=== PATIENT | female | born 1945 | race Caucasian/White ===

== ENCOUNTER 2020-08-15 08:06 | Outpatient (REF) | payer MEDICARE, SELFPAY ==
--- NOTE | 2020-08-15 09:00 | MM_ITS ---
EXAMINATION: MM SCREENING DIGITAL BREAST TOMOSYNTHESIS, BILATERAL CLINICAL INFORMATION: Screening. Asymptomatic. The lifetime risk of breast cancer based on the Tyrer-Cuzick Model is 3%. COMPARISON: Mammography: 08/10/2019, 07/25/2018 TECHNIQUE: Digital breast tomosynthesis is performed in both the craniocaudal and mediolateral oblique views along with computer-aided detection (CAD). Synthesized 2D images are generated from the tomosynthesis. FINDINGS: There are scattered areas of fibroglandular density (ACR BI-RADS breast composition Category b). There are no significant masses, abnormal calcifications, or other abnormalities. Parenchymal pattern is similar to prior studies. There are dermal lesions again seen overlying the upper and lower right breast. IMPRESSION: No mammographic evidence of malignancy. ASSESSMENT: BI-RADS 2: Benign RECOMMENDATION: Routine annual mammography screening. This patient's information was entered into a reminder system with a target due date for their next mammogram.
== END 2020-08-15 08:07 | disposition home or self-care (01) ==
LOC: HO.MAMMO 08:06
PROVIDERS: PCP Internal Medicine; Visit Provider Internal Medicine
DX: Z12.31 Encounter for screening mammogram for malignant neoplasm of breast (principal)
CPT/HCPCS: 77063; 77067; 78014

== ENCOUNTER → 2020-10-28 08:57 | Outpatient (BNVA) | payer MEDICARE, SELFPAY | PROVIDERS: PCP Internal Medicine; Visit Provider Internal Medicine Cardiovascular Disease | DX: I20.8 Other forms of angina pectoris (principal); I25.10 Atherosclerotic heart disease of native coronary artery without angina pectoris; I10 Essential (primary) hypertension; I49.3 Ventricular premature depolarization | CPT/HCPCS: 93005; 99212 ==

== ENCOUNTER → 2021-04-17 09:07 | Outpatient (REF) | payer MEDICARE, SELFPAY ==
--- NOTE | 2021-04-17 09:10 | CA_ITS ---
Transthoracic Echocardiogram Patient (Last, First, Middle): Devora Aguirre, Gender: Female Date of : 1945 Age: 75 Procedure Date: 04/17/2021 Procedure Type: Transthoracic Echocardiogram Location: OP Height: 165.1 cm Weight: 99.79 kg BSA: 2.06 m2 Heart Rate: bpm BP: 132 / 70 mmHg Printing Services Coordinator: Mike MD: Colin Vo MD Carbon Sequestration Plant Operator: Colin Vo MD Symptoms: I25.10 - Atherosclerotic heart disease of [place] coronary artery without angina pectoris Study Quality: Good ECG Rhythm: Sinus Conclusions: - 1. Normal LV systolic function with pseudonormal filling pattern 2. Mildly dilated left atrium 3. Normal cardiac valvular Doppler with mild mitral calcification 4. Normal RV systolic pressure 5. No pericardial effusion Findings Left Ventricle Normal left ventricular size, thickness, and systolic function. The visually estimated ejection fraction is between 65-70%. Spectral Doppler is indicative of a pseudonormal filling pattern. E/E prime ratio is between 8 and 15 consistent with indeterminate filling pressures. Right Ventricle Normal right ventricular cavity size and systolic function. Atria The left atrium is mildly dilated. There is lipomatous hypertrophy of the interatrial septum. There is no evidence of interatrial shunt. The right atrium is normal in size. Aortic Valve There is mild calcification of the aortic valve. There is no aortic valve stenosis. There is no aortic valve regurgitation. Mitral Valve Normal mitral valve structure and function. There is mild mitral annular calcification. There is trace mitral valve regurgitation. There is no mitral valve stenosis. Pulmonic Valve The pulmonic valve was not well visualized. Tricuspid Valve Likely normal tricuspid valve structure and function. There is mild tricuspid valve regurgitation. The right ventricular systolic pressure is normal. The right ventricular systolic pressure is 32 mmHg. Normal right atrial pressure. There is no evidence of pulmonary hypertension. Great Vessels All visible segments of the aorta are normal in size. The pulmonary artery was not well visualized. Venous The inferior vena cava is normal in size and collapses greater than 50% with inspiration. Pericardium/Pleural There is no evidence of pericardial effusion. Measurements 2D Linear Measurements RVIDd: 3.15 RVIDd Index: 1.53 IVSd: 1.14 0.6-0.9/0.6-1.0 cm LVIDd: 5.58 3.9-5.3/4.2-5.9 cm LVIDd Index: 2.71 2.4-3.2/2.2-3.1 cm/m2 LVIDs: 3.25 2.0-3.6 cm LVPWd: 1.14 0.7-1.1 cm Ao Root: 2.80 2.1-3.5 cm LA Diam: 4.60 2.7-3.8/3.0-4.0 cm LAIDs Index: 2.23 1.5-2.3 cm/m2 LV Mass: 324.32 67-162/88-224 g LV Mass Index: 157.44 43-95/49-115 g/m2 LVOT Diam: 2.10 3.0+(-)1.3 cm 2D Systolic Function EF 4C: 67.70 >55% EF 2C: 76.00 >55% EF BiP: 69.70 >55% Mitral Valve MV Pk E: 1.02 MV PK A: 0.79 MV Decel Time: 237.00 E/A: 1.30 E'Lateral: 6.53 E'Medial: 5.33 E/E' Med: 19.10 E/E' Lat: 15.60 PHT: 70.00 MVA PHT: 3.14 Decel [place]: 4.29 Aortic Valve AoV Pk Víctor: 1.91 AoV Mn Víctor: 1.46 AoV VTI: 0.48 AoV Pk Grad: 15.00 Aov Mn Grad: 9.00 TIANA Cont.VTI: 2.81 LVOT LVOT Pk Víctor: 1.62 LVOT Mn Víctor: 0.98 LVOT VTI: 0.39 LVOT Pk Grad: 10.00 LVOT Mn Grad: 5.00 LVOT Diam: 2.10 LVOT Area: 3.46 Diastolic Function MV Pk E: 1.02 MV Pk A: 0.79 E/A: 1.30 E'Medial: 5.33 E/E' Med: 19.10 E' Laterial: 6.53 E/E' Lat: 15.60 Tricuspid Valve TR Pk Víctor: 2.67 TR Pk Grad: 29.00 RA Press: 3.00 RVSP: 32.00 Great Vessels Aorta Ao Root-2D: 2.80 2.0-3.7 cm Ao Asc: 3.30 2.1-3.4 cm Ao Arch: 3.00 Updated in Other Vendor System with Status of Final Colin Vo MD electronically signed on 04/18/2021 12:36:39 PM with status of Final
== END ==
LOC: HO.CARD 09:07
PROVIDERS: PCP Internal Medicine Medical Oncology; Visit Provider Internal Medicine Cardiovascular Disease
DX: I25.10 Atherosclerotic heart disease of native coronary artery without angina pectoris (principal); I10 Essential (primary) hypertension
CPT/HCPCS: 93306

== ENCOUNTER → 2021-05-28 14:26 | Outpatient (BNVA) | payer MEDICARE, SELFPAY | PROVIDERS: PCP Internal Medicine Medical Oncology; Visit Provider Internal Medicine Cardiovascular Disease | DX: I25.10 Atherosclerotic heart disease of native coronary artery without angina pectoris (principal); I10 Essential (primary) hypertension; I49.3 Ventricular premature depolarization; R06.02 Shortness of breath | CPT/HCPCS: 99212 ==

== ENCOUNTER 2021-05-29 10:35 | Emergency (ER) | payer MEDICARE, SELFPAY ==
--- NOTE | ~2021-05-29 | XR_ITS ---
EXAMINATION: XR TIBIA AND FIBULA, LEFT CLINICAL INFORMATION: Redness and swelling. Question abscess. COMPARISON: None. TECHNIQUE: AP and lateral views of the left tibia and fibula were obtained. FINDINGS: Partially visualized total left knee arthroplasty. No evidence of hardware complication. No lytic or blastic osseous lesion. Mild circumferential soft tissue swelling/edema. No radiopaque foreign body. XR/XR tibia fibula LT 2V IMPRESSION: Mild lower leg swelling/edema without acute osseous abnormality.
--- NOTE | ~2021-05-29 | US_ITS ---
EXAMINATION: US EXTREMITY NONVASCULAR, LEFT CLINICAL INFORMATION: Question left puckett abscess. COMPARISON: None TECHNIQUE: [place]-scale and Doppler images were obtained in the region of the patient's palpable finding. FINDINGS: There are simple-appearing cystic and avascular structures within the subcutaneous tissues in the region of the patient's palpable findings measuring 1.0 x 0.4 x 1.3 cm and 1.0 x 0.6 x 0.8 cm. No increased Doppler detectable vascular flow in this region. This appears at the region of bruising/lump. US/US extremity nonvascular IMPRESSION: Simple cystic structures within the subcutaneous tissues of the lower leg in the region of the bruising and palpable findings. Findings could represent evolving hematomas in the appropriate setting. No increased vascularity to indicate an infectious or inflammatory process.
[2021-05-29 10:38] VITALS: BP 164/53; PULSE 73; RESP 16; TEMP 36.8; O2SAT 98; BMI 36.6
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
[2021-05-29 11:57] LABS: MANUAL DIFF FLAG NO
[2021-05-29 12:00] VITALS: RESP 16
[2021-05-29 12:03] LABS: Basophils Percent Auto 0.5 % (0-2); Eosinophils Absolute Auto 0.2 X10*3/uL (0.0-0.4); Eosinophils Percent Auto 2.7 % (0-4); Hematocrit 38.2 % (37-47); Hemoglobin 12.2 g/dl (12.0-16.0); Imm Gran Abs Auto 0.02 X10*3/uL (0.00-0.03); Imm Gran Pct Auto 0.4 % (0.0-0.4); Lymphocytes Absolute Auto 1.1 X10*3/uL (1.2-4.9); Lymphocytes Percent Auto 19.1 % (20-40); Mean Corpuscular HGB Conc 31.9 g/dl (31.0-35.0); Mean Corpuscular Hemoglobin 29.7 pg (27.0-33.0); Mean Corpuscular Volume 92.9 fL (80-98); Mean Platelet Volume 10.1 fL (9.4-12.3); Monocytes Absolute Auto 0.6 X10*3/uL (0.1-1.2); Monocytes Percent Auto 10.2 % (2-11); Neutrophils Absolute Auto 3.8 X10*3/uL (2.0-8.3); Neutrophils Percent Auto 67.1 % (45-73); Platelet Count 162 X10*3/uL (160-400); Red Blood Count 4.11 X10*6/uL (4.20-5.50); Red Cell Distribution Width 13.5 % (11.0-16.0); White Blood Count 5.6 X10*3/uL (4.8-10.8)
[2021-05-29] MEDS: Lidocaine HCl 1 % MPF 5 ML VIAL SUBCUT (12:03)
[2021-05-29] MEDS: 0.9 % Sodium Chloride 1,000 ML 999 ML IVCONT (12:03)
[2021-05-29 12:20] LABS: Lactic Acid 0.9 mmol/L (0.5-2.0)
[2021-05-29 12:24] LABS: Anion Gap 11 (12-20); Blood Urea Nitrogen 26 mg/dL (9-16); C Reactive Protein 1.08 mg/dL (< or = 0.50); Calcium 9.4 mg/dL (8.4-10.2); Carbon Dioxide 27 mmol/L (22-29); Chloride 110 mmol/L (96-108); Creatinine Clr Calc Pharmacy 62.7; Estimated Glomerular Filt Rate 60; Glucose Random 92 mg/dL (60-115); Magnesium 1.7 mg/dL (1.6-2.6); Potassium 4.4 mmol/L (3.3-5.1); Sodium 144 mmol/L (135-145)
[2021-05-29 13:07] LABS: Erythrocyte Sedimentation Rate 12 MM/HR (0-20)
== END 2021-05-29 13:20 | disposition home or self-care (01) ==
PROVIDERS: Physician Assistant Medical; Emergency Provider Emergency Medicine; PCP Internal Medicine
DX: L03.116 Cellulitis of left lower limb (principal); S80.12XA Contusion of left lower leg, initial encounter; I10 Essential (primary) hypertension; Z79.899 Other long term (current) drug therapy; W50.1XXA Accidental kick by another person, initial encounter; Y93.9 Activity, unspecified; Y92.9 Unspecified place or not applicable; Y99.9 Unspecified external cause status
CPT/HCPCS: 36415; 73590; 76882; 80048; 83605; 83735; 85025; 85652; 86140; 87040; 96360; 96372; 99284

== ENCOUNTER 2021-06-06 08:58 | Outpatient (RCR) | payer MEDICARE, SELFPAY | END 2021-06-06 11:00 | disposition home or self-care (01) | LOC: HO.WCC 08:58 | PROVIDERS: PCP Internal Medicine; Visit Provider Surgery | DX: S81.811D Laceration without foreign body, right lower leg, subsequent encounter (principal) | CPT/HCPCS: 99212 ==

== ENCOUNTER 2021-09-13 04:40 | Inpatient (IN) | payer MEDICARE, SELFPAY ==
[2021-09-13] VITALS (12 sets, daily range): BP systolic 105–186; BP diastolic 46–114; PULSE 64–84; RESP 11–18; TEMP 36.1–37.2; O2SAT 95–100; BMI 35.6
--- NOTE | 2021-09-13 | ECG_ITS ---
Test Reason : TACHY Blood Pressure : / mmHG Vent. Rate : 085 BPM Atrial Rate : 085 BPM P-R Int : 166 ms QRS Dur : 082 ms QT Int : 364 ms P-R-T Axes : 063 -14 057 degrees QTc Int : 433 ms Sinus rhythm with sinus arrhythmia with occasional Premature ventricular complexes ST & T wave abnormality, consider anterolateral ischemia RSR' or QR pattern in V1 suggests right ventricular conduction delay Abnormal ECG When compared with ECG of 21-MAY-2014 14:50, Significant changes have occurred Referred By: Rose Eddy Electronically Signed By:DAKOTA GARCIA MD
--- NOTE | ~2021-09-13 | XR_ITS ---
EXAMINATION: XR CHEST CLINICAL INFORMATION: Chest pain COMPARISON: Previous chest x-ray May 2014 TECHNIQUE: Frontal view of the chest was obtained. FINDINGS: No significant abnormality is noted involving the heart, lungs, mediastinum, bony thorax or soft tissues. XR/XR chest 1V IMPRESSION: Unremarkable examination.
--- NOTE | 2021-09-13 05:01 | ED_ITS ---
HPI - General Adult General Chief complaint: General Medical Stated complaint: swollen tounge Time Seen by Provider: 09/13/21 04:55 Source: patient Mode of arrival: ambulatory History of Present Illness HPI narrative: 76-year-old female who presents with angioedema that she noted at 3:00 a.m. and took 50 mg Benadryl and states that she has had some improvement. She denies any shortness of breath or scratchy throat but states that the right side of her tongue has become swollen. She otherwise is noted to be speaking with a clear voice. Related Data Home Medications Medication Instructions Recorded Confirmed lisinopril 5 mg tablet 10 mg PO DAILY tab 10/28/20 05/29/21 mupirocin 2 % topical ointment TOPICAL 10/28/20 05/29/21 nitroglycerin 0.4 mg sublingual mg SUBLINGUAL 10/28/20 05/29/21 tablet Previous Rx's Medication Instructions Recorded atorvastatin 80 mg tablet 80 mg PO DAILY #90 tab 11/29/20 metoprolol succinate 25 mg 12.5 mg PO DAILY 90 Days #45 tab 05/08/21 tablet,extended release 24 hr cephalexin 500 mg capsule 500 mg PO TID 7 Days #21 cap 05/22/21 doxycycline hyclate 100 mg tablet 100 mg PO BID #14 tab 05/22/21 cephalexin 500 mg capsule 500 mg PO Q6H 7 Days #28 cap 05/29/21 doxycycline hyclate 100 mg tablet 100 mg PO BID 7 Days #14 tab 05/29/21 Allergies Allergy/AdvReac Type Severity Reaction Status Date / Time Sulfa (Sulfonamide Allergy Unknown rash Verified 05/22/21 13:58 Antibiotics) lisinopril Allergy Angioedema Verified 09/13/21 07:15 Review of Systems Review of Systems: Pertinent positives and negatives as stated in HPI 10 point review of systems is otherwise negative. [facility] Past Medical History Source: nursing notes reviewed Medical History CAD (coronary artery disease) HTN (hypertension) Hyperlipidemia PVCs (premature ventricular contractions) Surgical History Hx of cardiac cath Hx of colonoscopy Hx of endoscopy Hx of knee surgery Stented coronary artery Family History Family History Father CVD (cardiovascular disease) Mother CVD (cardiovascular disease) Sister Cancer Social History Social History Alcohol intake: never Patient Tobacco Use Status: Never used Tobacco Use of substances other than those prescribed or required for medical reasons: No Advance Directives: No Physical Exam Vital Signs: Vital Signs: Last Vital Signs Temp 98.0 F 09/13/21 05:50 Pulse 64 09/13/21 06:00 Resp 14 09/13/21 06:00 BP 105/57 L 09/13/21 06:00 Pulse Ox 100 09/13/21 06:00 Body Mass Index 35.6 VITAL SIGNS: Reviewed. GENERAL: Well developed, well nourished, in no acute distress. HEAD: Normocephalic/atraumatic EYES: PERRLA, EOMI OROPHARYNX: no oral lesions noted, posterior pharynx clear and non-erythematous without noted tonsillar enlargement/erythema/exudates, there is noted right- sided tongue swelling without involvement the lower the mouth, no lip or facial swelling is noted NECK: Supple, no adenopathy LUNGS: No stridor, Normal breath sounds. No adventitious sounds or accessory muscle use. SpO2<100> CARDIOVASCULAR: Regular rate and rhythm without noted murmurs, no JVD or lower extremity edema. ABDOMEN: Soft, non-tender, non-distended with bowel sounds. SKIN: Inspection of the skin reveals no rashes NEUROLOGIC: Alert and oriented x 4. Course Course Course Narrative: This is a 76-year-old female with history and clinical presentation consistent with ACEI induced angioedema. Airway is patent, patient already took Benadryl and will be provided with Pepcid, Solu-Medrol, epi. Shortly after receiving epi patient experienced chest tightness/pain without radiation and concomitant shortness of breath. Patient was provided with supplemental oxygen and EKG was obtained and found to be consistent with demand ischemia likely secondary to increased work from epinephrine. Patient continued to have resolution of her chest pain and on re-evaluation has had complete resolution with no further symptoms. Initial troponin was noted to be 85.9. On re-evaluation angioedema patient is noted to have resolving tongue swelling. Signed out to Dr Eddy: Medical Decision Making Lab Data Result diagrams: 09/13/21 04:55 09/13/21 04:55 Labs: Lab Results 09/13/21 09/13/21 09/13/21 Range/Units 04:55 04:55 06:52 WBC 6.7 (4.8-10.8) X10*3/uL RBC 4.55 (4.20-5.50) X10*6/uL Hgb 13.6 (12.0-16.0) g/dl Hct 42.2 (37-47) % MCV 92.7 (80-98) fL MCH 29.9 (27.0-33.0) pg MCHC 32.2 (31.0-35.0) g/dl RDW 13.4 (11.0-16.0) % Plt Count 187 (160-400) X10*3/uL MPV 9.9 (9.4-12.3) fL Immature Gran % (Auto) 0.3 (0.0-0.4) % Neut % (Auto) 58.9 (45-73) % Lymph % (Auto) 27.0 (20-40) % [place] % (Auto) 9.2 (2-11) % Eos % (Auto) 4.2 H (0-4) % Baso % (Auto) 0.4 (0-2) % Lymph # (Auto) 1.8 (1.2-4.9) X10*3/uL [place] # (Auto) 0.6 (0.1-1.2) X10*3/uL Eos # (Auto) 0.3 (0.0-0.4) X10*3/uL Baso # (Auto) 0.0 (0.0-0.2) X10*3/uL Abs Immat Gran (auto) 0.02 (0.00-0.03) X10*3/uL Absolute Neuts (auto) 4.0 (2.0-8.3) X10*3/uL Absolute Nucleated RBC 0.000 (0.0-0.012) X10*3/uL Nucleated RBC % (auto) 0.0 (0.0-0.2) /100WBC Sodium 144 (135-145) mmol/L Potassium 4.0 (3.3-5.1) mmol/L Chloride 108 (96-108) mmol/L Carbon Dioxide 21 L (22-29) mmol/L Anion Gap 19 (12-20) BUN 22 H (9-16) mg/dL Creatinine 0.86 (0.5-1.4) mg/dL Estim Creat Clear Calc 67.5 Estimated GFR > 60 Random Glucose 101 (60-115) mg/dL Calcium 9.6 (8.4-10.2) mg/dL Total Bilirubin 0.6 (0.0-1.0) mg/dL AST 31 (5-31) U/L ALT 17 (0-31) U/L Alkaline Phosphatase 84 (39-117) U/L Troponin I High Sens 85.9 H* (<3.5-17.0) ng/L Total Protein 7.4 (6.5-8.0) g/dL Albumin 4.4 (3.5-5.0) g/dL Discharge Plan Discharge Clinical Impression: Angioedema, Demand ischemia Instructions: Angioedema (ED) Additional Instructions: return to ED for any worsening symptoms or concerns STOP LISINOPRIL Prescriptions: No Action atorvastatin 80 mg tablet 80 mg PO DAILY Qty: 90 RF: 3 metoprolol succinate 25 mg tablet extended release 24 hr 12.5 mg PO DAILY 90 Days Qty: 45 RF: 1 doxycycline hyclate 100 mg tablet 100 mg PO BID 7 Days Qty: 14 RF: 0 cephalexin 500 mg capsule 500 mg PO Q6H 7 Days Qty: 28 RF: 0 doxycycline hyclate 100 mg tablet 100 mg PO BID Qty: 14 RF: 0 cephalexin 500 mg capsule 500 mg PO TID 7 Days Qty: 21 RF: 0 mupirocin 2 % ointment topical RF: 0 nitroglycerin 0.4 mg tablet, sublingual sublingual RF: 0 lisinopril 5 mg tablet 10 mg PO DAILY RF: 0 Referrals: Ruddy Gray MD [Primary Care Provider] - 2 days
[2021-09-13 05:10] LABS: MANUAL DIFF FLAG NO
[2021-09-13 05:12] LABS: Basophils Percent Auto 0.4 % (0-2); Eosinophils Absolute Auto 0.3 X10*3/uL (0.0-0.4); Eosinophils Percent Auto 4.2 % (0-4); Hematocrit 42.2 % (37-47); Hemoglobin 13.6 g/dl (12.0-16.0); Imm Gran Abs Auto 0.02 X10*3/uL (0.00-0.03); Imm Gran Pct Auto 0.3 % (0.0-0.4); Lymphocytes Absolute Auto 1.8 X10*3/uL (1.2-4.9); Mean Corpuscular HGB Conc 32.2 g/dl (31.0-35.0); Mean Corpuscular Hemoglobin 29.9 pg (27.0-33.0); Mean Corpuscular Volume 92.7 fL (80-98); Mean Platelet Volume 9.9 fL (9.4-12.3); Monocytes Absolute Auto 0.6 X10*3/uL (0.1-1.2); Monocytes Percent Auto 9.2 % (2-11); Neutrophils Percent Auto 58.9 % (45-73); Platelet Count 187 X10*3/uL (160-400); Red Blood Count 4.55 X10*6/uL (4.20-5.50); Red Cell Distribution Width 13.4 % (11.0-16.0); White Blood Count 6.7 X10*3/uL (4.8-10.8)
[2021-09-13] MEDS: EPINEPHrine 1 MG/ML VIAL 0.3 MG IM (05:19)
[2021-09-13] MEDS: Famotidine/PF 20 MG/2 ML VIAL IVPUSH (05:21)
[2021-09-13] MEDS: methylPREDNISolone Sod Succ 125 MG/2 ML VIAL IVPUSH (05:21)
[2021-09-13 05:25] LABS: Alanine Aminotransferase 17 U/L (0-31); Albumin Level 4.4 g/dL (3.5-5.0); Alkaline Phosphatase 84 U/L (39-117); Anion Gap 19 (12-20); Aspartate Amino Transferase 31 U/L (5-31); Bilirubin Total 0.6 mg/dL (0.0-1.0); Blood Urea Nitrogen 22 mg/dL (9-16); Calcium 9.6 mg/dL (8.4-10.2); Carbon Dioxide 21 mmol/L (22-29); Chloride 108 mmol/L (96-108); Creatinine Clr Calc Pharmacy 67.5; Estimated Glomerular Filt Rate > 60; Glucose Random 101 mg/dL (60-115); Sodium 144 mmol/L (135-145); Total Protein 7.4 g/dL (6.5-8.0)
--- NOTE | 2021-09-13 05:26 | PC.NURSE ---
Patient developed chest pain post epinephrine administration. Patient placed on Oxygen at 2 liters and EKG performed. Heart rate up into 160's MD aware.
--- NOTE | 2021-09-13 06:36 | PC.NURSE ---
Patient's Angioedema is resolving. New allergy to lisinopril. Patient still complaining of chest pressure post epinephrine administration over and hour ago. MD made aware as asked if Troponin should be drawn but no orders given. Patient does have a history of myocardial infarction.
--- NOTE | 2021-09-13 07:23 | PC.NURSE ---
report taken from irish celis, pt resting comfortably in bed at this time. pt denies cp or any discomfort. nsr 60s on classroom monitor. aware of plan of care and denied having any questions.
[2021-09-13 07:33] LABS: Troponin-I High Sensitivity 85.9 ng/L (<3.5-17.0)
[2021-09-13 09:51] LABS: Troponin-I High Sensitivity 579.9 ng/L (<3.5-17.0)
[2021-09-13] MEDS: Aspirin 81 MG TAB.CHEW 162 MG PO (10:00)
[2021-09-13 10:41] LABS: COVID-19 Test Negative (Negative)
[2021-09-13 10:53] LABS: Prothrombin Time 11.8 SEC (9.9-13.0)
[2021-09-13 10:55] LABS: Partial Thromboplastin Time 28.2 SEC (24.1-38.0)
[2021-09-13] MEDS: Heparin Sodium,Porcine 5,000 UNIT/ML VIAL 4000 UNIT IVPUSH (11:00)
[2021-09-13] MEDS: Heparin Sodium,Porcine/1/2NS 25,000 UNIT/250 ML IV.SOLN 10 UNIT IVCONT (11:00)
--- NOTE | 2021-09-13 13:31 | P.CONCA_ITS ---
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 At that time she has 70% mid LAD stenosis which was assessed with FFR which was 0.77. His RCA was stented and LAD was medically managed. Since then she did well and has not had significant symptoms. She has been on lisinopril for long time and last night she woke up and noticed tongue swelling. She said she took some Benadryl but the swelling did not improve and she decided come to the emergency department. In the ER she was given steroids followed by epinephrine. After receiving epinephrine she developed high blood pressure and chest pain. ECG at that time showed precordial ST depression and T-wave inversions. These improved as her blood pressure improved. She ruled in for NSTEMI. Her high sensitivity troponin level was 85 in 579. She was started on heparin drip at this stage. She continues to be pain-free. Preceding this event she was active with household activities without any significant symptoms. She said she was helping her daughter to move and was moving boxes without any symptoms. [facility] Past Medical History Medical History CAD (coronary artery disease) HTN (hypertension) Hyperlipidemia PVCs (premature ventricular contractions) Family History Family History Father CVD (cardiovascular disease) Mother CVD (cardiovascular disease) Sister Cancer Surgical History Surgical History Hx of cardiac cath Hx of colonoscopy Hx of endoscopy Hx of knee surgery Stented coronary artery Social History Social History Alcohol intake: never Patient Tobacco Use Status: Never used Tobacco Use of substances other than those prescribed or required for medical reasons: No Advance Directives: No Meds Allergies Allergy/AdvReac Type Severity Reaction Status Date / Time Sulfa (Sulfonamide Allergy Unknown rash Verified 05/22/21 13:58 Antibiotics) lisinopril Allergy Angioedema Verified 09/13/21 07:15 Active Medications: Current Medications Acetaminophen (Acetaminophen 325 Mg Tablet) 650 mg PO Q6H PRN PRN Reason: Pain, Mild (Pain Scale 1-3) Atorvastatin Calcium (Atorvastatin Calcium 80 Mg Tablet) 80 mg PO DAILY [facility] Heparin Sodium (Porcine) (Heparin Sodium,Porcine 5,000 Unit/Ml Vial) 4,000 unit 40 unit/kg (4000 unit) IVPUSH PROTOCOL BOLUS PRN; Protocol PRN Reason: 40 unit/kg - Heparin Protocol Heparin Sodium (Porcine) (Heparin Sodium,Porcine 5,000 Unit/Ml Vial) 8,000 unit 80 unit/kg (8000 unit) IVPUSH PROTOCOL BOLUS PRN; Protocol PRN Reason: 80 unit/kg - Heparin Protocol Heparin Sodium/Sodium Chloride () 25,000 unit in 250 mls @ 0 mls/hr IVCONT .Q0M [facility]; Protocol Last Admin: 09/13/21 11:00 Dose: 9.98 units/kg/hr, 10 mls/hr Documented by: Metoprolol Succinate (Metoprolol Succinate Er 12.5 Mg Halftab.Er.24h) 12.5 mg PO DAILY [facility]; Protocol Ondansetron HCl (Ondansetron Hcl 4 Mg/2 Ml Vial) 4 mg IVPUSH Q8H PRN PRN Reason: Nausea and Vomiting Pharmacy Consult (Consult Rx Perform Med Rec) 1 each MISCELLANE ONCE PRN PRN Reason: Consult order Sodium Chloride (0.9 % Sodium Chloride Flush 3 Ml Syringe) 3 ml IVFLUSH QSHIFT [facility] Home Medications Medication Instructions Recorded Confirmed Last Taken Type lisinopril 10 mg tablet 1 tab PO DAILY 09/13/21 09/13/21 Unknown History Physical Exam Vital Signs: Vital Signs: Last Vital Signs Temp 98.7 F 09/13/21 13:16 Pulse 71 09/13/21 13:16 Resp 16 09/13/21 13:16 BP 134/69 09/13/21 13:16 Pulse Ox 97 09/13/21 13:16 Body Mass Index 35.6 GENERAL APPEARANCE: in no acute distress, pleasant. NECK: no carotid bruit, no jugular venous distention. SKIN: no suspicious lesions, warm and dry. HEART: no murmurs, regular rate and rhythm. LUNGS: clear to auscultation bilaterally. ABDOMEN: soft, nontender. EXTREMITIES: no edema. PERIPHERAL PULSES: equal. NEUROLOGIC: No gross deficits, AAO X 3 Results Labs and Meds Result diagrams: 09/13/21 04:55 09/13/21 04:55 Lab results: Laboratory Results - last 24 hr 09/13/21 09/13/21 09/13/21 04:55 04:55 06:52 WBC 6.7 RBC 4.55 Hgb 13.6 Hct 42.2 MCV 92.7 MCH 29.9 MCHC 32.2 RDW 13.4 Plt Count 187 MPV 9.9 Immature Gran % (Auto) 0.3 Neut % (Auto) 58.9 Lymph % (Auto) 27.0 [place] % (Auto) 9.2 Eos % (Auto) 4.2 H Baso % (Auto) 0.4 Lymph # (Auto) 1.8 [place] # (Auto) 0.6 Eos # (Auto) 0.3 Baso # (Auto) 0.0 Abs Immat Gran (auto) 0.02 Absolute Neuts (auto) 4.0 Absolute Nucleated RBC 0.000 Nucleated RBC % (auto) 0.0 PT INR APTT Sodium 144 Potassium 4.0 Chloride 108 Carbon Dioxide 21 L Anion Gap 19 BUN 22 H Creatinine 0.86 Estim Creat Clear Calc 67.5 Estimated GFR > 60 Random Glucose 101 Calcium 9.6 Total Bilirubin 0.6 AST 31 ALT 17 Alkaline Phosphatase 84 Troponin I High Sens 85.9 H* Total Protein 7.4 Albumin 4.4 COVID-19 ([facility]) COVID-19 Clin Com 09/13/21 09/13/21 09/13/21 09:22 10:23 10:32 WBC RBC Hgb Hct MCV MCH MCHC RDW Plt Count MPV Immature Gran % (Auto) Neut % (Auto) Lymph % (Auto) [place] % (Auto) Eos % (Auto) Baso % (Auto) Lymph # (Auto) [place] # (Auto) Eos # (Auto) Baso # (Auto) Abs Immat Gran (auto) Absolute Neuts (auto) Absolute Nucleated RBC Nucleated RBC % (auto) PT 11.8 INR 1.0 APTT 28.2 Sodium Potassium Chloride Carbon Dioxide Anion Gap BUN Creatinine Estim Creat Clear Calc Estimated GFR Random Glucose Calcium Total Bilirubin AST ALT Alkaline Phosphatase Troponin I High Sens 579.9 H* D Total Protein Albumin COVID-19 ([facility]) Negative COVID-19 Clin Com See Note Imaging Radiologist's impression: Impressions Chest X-Ray 09/13/21 10:54 IMPRESSION: Unremarkable examination. Assessment and Plan (1) Non-ST elevation MO (NSTEMI): Status: Acute (2) CAD (coronary artery disease): Status: Acute (3) HTN (hypertension): Status: Acute 72-year-old female who is presenting with angioedema secondary to lisinopril. She was treated with epinephrine but unfortunately developed chest pain with EKG changes. She ruled in for NSTEMI. She has known history of LAD stenosis which was approximately 70% in 2013. She is completely pain-free now. Her tongue swelling has improved. She has been started on heparin drip for NSTEMI. I have reviewed her echocardiogram. She has no wall motion abnormality on echocardiography. I think her current NSTEMI due to epinephrine and related stress on the heart. Obviously true plaque rupture cannot be ruled out. I will discuss this more with her and we will plan how to go forward. Options are to transfer to [facility] and do inpatient cardiac catheterization and treat the LAD. Other option is to put her on Plavix and medically treat her and do an ischemia guided approach with stress testing. Thank you for allowing me to participate in the care of your patient. Please feel free to contact me if you have any questions. Procedures Date of Service Date of Service: 09/13/21
--- NOTE | 2021-09-13 14:00 | CA_ITS ---
Transthoracic Echocardiogram Patient (Last, First, Middle): Devora Aguirre, Gender: Female Date of : 1945 Age: 76 Procedure Date: 09/13/2021 Procedure Type: Transthoracic Echocardiogram Location: ER Height: 165.1 cm Weight: 101.61 kg BSA: 2.08 m2 Heart Rate: bpm BP: 137 / 70 mmHg [employer]: Referring MD: Afshin Greer MD Symptoms: nstemi Study Quality: Good ECG Rhythm: Sinus Conclusions: - Normal left ventricular size and systolic function. - The basal inferior segment is akinetic. - Normal right ventricular cavity size and systolic function. Findings Procedure Information Contrast agent, definity, is being given per protocol without apparent complications. Left Ventricle Normal left ventricular size and systolic function. There is mildly increased left ventricular wall thickness. The visually estimated ejection fraction is between 55-60%. There is evidence of regional wall motion abnormalities. Diastolic function is indeterminate on the basis of available data. Wall Motion Rest Echo Findings The basal inferior segment is akinetic. Right Ventricle Normal right ventricular cavity size and systolic function. Tricuspid Valve Normal right atrial pressure. Venous The inferior vena cava is normal in size and collapses greater than 50% with inspiration. Pericardium/Pleural There is no evidence of pericardial effusion. Prior Study Comparison Changes noted compared to prior study dated: 04/17/2021. Basal inferior wall is akinetic. Measurements 2D Linear Measurements IVSd: 1.05 0.6-0.9/0.6-1.0 cm LVIDd: 4.77 3.9-5.3/4.2-5.9 cm LVIDd Index: 2.29 2.4-3.2/2.2-3.1 cm/m2 LVIDs: 3.06 2.0-3.6 cm LVPWd: 1.10 0.7-1.1 cm LV Mass: 231.76 67-162/88-224 g LV Mass Index: 111.42 43-95/49-115 g/m2 Updated in Other Vendor System with Status of Final Afshin Greer MD electronically signed on 09/13/2021 2:08:39 PM with status of Final
[2021-09-13] MEDS: Metoprolol Succinate ER 12.5 MG HALFTAB.ER.24H PO (14:32)
--- NOTE | 2021-09-13 17:19 | P.HPHOSP_ITS ---
History of Present Illness Date of Service: 09/13/21 Attending physician on admission: Lauren Barroso Chief Complaint: Tongue swelling 76-year-old female with past medical history of coronary artery disease, hypertension, hyperlipidemia , status post cardiac catheterization with 70% lad lesion with no recent episodes of angina has chronic shortness of breath with exertion presented to [facility] due to tongue swelling, patient took Benadryl at home without any improvement therefore came to the emergency , patient denied any associated symptoms of shortness of breath She was treated with Pepcid,iv Solu Medrol and epi ,Shortly after receiving epi patient experienced chest tightness/pain without radiation and concomitant shortness of breath.? Patient was provided with supplemental oxygen and EKG was obtained and found to be consistent with demand ischemia likely secondary to i ncreased work from epinephrine, subsequently her chest pain resolved and repeat EKG normalized patient noted to have significant bump in her troponin therefore patient is started on IV heparin as per Cardiology recommendation and is now being admitted to [facility] with a diagnosis of non ST elevation NV At present patient denies any chest pain, no shortness of breath heart tongue swelling is completely resolved she denies any recent bout of fever chills no recent episodes of angina with activity no change in her baseline shortness of breath, she admits compliance with her home medications. Review of Systems Review of Systems: General no headache no dizziness no fever chills. CVS no chest pain, no palpitation. Respiratory no cough no sputum production no respiratory distress. Gastrointestinal no nausea no vomiting, no abdominal pain Musculoskeletal no pain No urinary frequency or urgency Yes all other systems are reviewed and are negative [facility] Medical History CAD (coronary artery disease) HTN (hypertension) Hyperlipidemia PVCs (premature ventricular contractions) Family History Father CVD (cardiovascular disease) Mother CVD (cardiovascular disease) Sister Cancer Pertinent family history: No history of CVA in family Surgical History Hx of cardiac cath Hx of colonoscopy Hx of endoscopy Hx of knee surgery Stented coronary artery Social History Alcohol intake: never Patient Tobacco Use Status: Never used Tobacco Use of substances other than those prescribed or required for medical reasons: No Advance Directives: No Meds Allergies Allergy/AdvReac Type Severity Reaction Status Date / Time Sulfa (Sulfonamide Allergy Unknown rash Verified 05/22/21 13:58 Antibiotics) lisinopril Allergy Angioedema Verified 09/13/21 07:15 Active Medications: Current Medications Acetaminophen (Acetaminophen 325 Mg Tablet) 650 mg PO Q6H PRN PRN Reason: Pain, Mild (Pain Scale 1-3) Atorvastatin Calcium (Atorvastatin Calcium 80 Mg Tablet) 80 mg PO BEDTIME [facility] Heparin Sodium (Porcine) (Heparin Sodium,Porcine 5,000 Unit/Ml Vial) 4,000 unit 40 unit/kg (4000 unit) IVPUSH PROTOCOL BOLUS PRN; Protocol PRN Reason: 40 unit/kg - Heparin Protocol Heparin Sodium (Porcine) (Heparin Sodium,Porcine 5,000 Unit/Ml Vial) 8,000 unit 80 unit/kg (8000 unit) IVPUSH PROTOCOL BOLUS PRN; Protocol PRN Reason: 80 unit/kg - Heparin Protocol Heparin Sodium/Sodium Chloride () 25,000 unit in 250 mls @ 0 mls/hr IVCONT .Q0M [facility]; Protocol Last Admin: 09/13/21 11:00 Dose: 9.98 units/kg/hr, 10 mls/hr Documented by: Metoprolol Succinate (Metoprolol Succinate Er 12.5 Mg Halftab.Er.24h) 12.5 mg PO DAILY [facility]; Protocol Last Admin: 09/13/21 14:32 Dose: 12.5 mg Documented by: Ondansetron HCl (Ondansetron Hcl 4 Mg/2 Ml Vial) 4 mg IVPUSH Q8H PRN PRN Reason: Nausea and Vomiting Pharmacy Consult (Consult Rx Perform Med Rec) 1 each MISCELLANE ONCE PRN PRN Reason: Consult order Sodium Chloride (0.9 % Sodium Chloride Flush 3 Ml Syringe) 3 ml IVFLUSH QSHIFT [facility] Last Admin: 09/13/21 14:32 Dose: Not Given Documented by: Home Medications Medication Instructions Recorded Confirmed Last Taken Type lisinopril 10 mg tablet 1 tab PO DAILY 09/13/21 09/13/21 Unknown History Physical Exam Vital Signs and Narrative: Vital Signs: Last Vital Signs Temp 98.9 F 09/13/21 15:24 Pulse 65 09/13/21 15:24 Resp 16 10/30/21 15:24 BP 113/49 L 09/13/21 15:24 Pulse Ox 98 09/13/21 15:24 Body Mass Index 35.6 General awake alert x3, no acute distress. Oral mucosa moist, tongue midline, no swelling Neck supple no JVD. CVS regular rate rhythm, Respiratory lungs clear to auscultation, no respiratory distress, no wheeze, no rhonchi. Gastrointestinal abdomen soft, nontender, bowel sounds audible, no guarding , no rigidity. Extremities no edema. Neuro nonfocal Skin no rash Psych appropriate affect Musculoskeletal no deformity Results Labs CBC and Chem 7: 09/13/21 04:55 09/13/21 04:55 Labs: Laboratory Results - last 24 hr 09/13/21 09/13/21 09/13/21 04:55 04:55 06:52 MCV 92.7 MCH 29.9 MCHC 32.2 RDW 13.4 Plt Count 187 MPV 9.9 Immature Gran % (Auto) 0.3 Neut % (Auto) 58.9 Lymph % (Auto) 27.0 [place] % (Auto) 9.2 Eos % (Auto) 4.2 H Baso % (Auto) 0.4 Lymph # (Auto) 1.8 [place] # (Auto) 0.6 Eos # (Auto) 0.3 Baso # (Auto) 0.0 Abs Immat Gran (auto) 0.02 Absolute Neuts (auto) 4.0 Absolute Nucleated RBC 0.000 Nucleated RBC % (auto) 0.0 PT INR APTT Anion Gap 19 Estim Creat Clear Calc 67.5 Estimated GFR > 60 Random Glucose 101 Calcium 9.6 Total Bilirubin 0.6 AST 31 ALT 17 Alkaline Phosphatase 84 Troponin I High Sens 85.9 H* Total Protein 7.4 Albumin 4.4 COVID-19 ([facility]) COVID-19 Clin Com 09/13/21 09/13/21 09/13/21 09:22 10:23 10:32 MCV MCH MCHC RDW Plt Count MPV Immature Gran % (Auto) Neut % (Auto) Lymph % (Auto) [place] % (Auto) Eos % (Auto) Baso % (Auto) Lymph # (Auto) [place] # (Auto) Eos # (Auto) Baso # (Auto) Abs Immat Gran (auto) Absolute Neuts (auto) Absolute Nucleated RBC Nucleated RBC % (auto) PT 11.8 INR 1.0 APTT 28.2 Anion Gap Estim Creat Clear Calc Estimated GFR Random Glucose Calcium Total Bilirubin AST ALT Alkaline Phosphatase Troponin I High Sens 579.9 H* D Total Protein Albumin COVID-19 ([facility]) Negative COVID-19 Clin Com See Note Imaging Radiologist's Impressions: Impressions Chest X-Ray 09/13/21 10:54 IMPRESSION: Unremarkable examination. Assessment and Plan (1) Angioedema: Qualifiers: Encounter type: initial encounter Qualified Code(s): T78.3XXA - Angioneurotic edema, initial encounter Status: Acute (2) Demand ischemia: Status: Acute (3) Non-ST elevation NV (NSTEMI): Status: Acute (4) HTN (hypertension): Status: Acute (5) Hyperlipidemia: Status: Acute (6) PVCs (premature ventricular contractions): Status: Acute 72-year-old female patient with past medical history significant for coronary artery disease with 70% lad lesion history of rights coronary artery stent placement presented to [facility] due to tongue swelling patient treated with epinephrine subsequently developed chest discomfort and noted to have elevated troponin consistent with non ST elevation NV likely related to epinephrine and stress on Connell with underlying coronary disease. Non ST-elevation NV Will admit patient to [facility] telemetry unit, resume beta-blockers, statins and aspirin Started on IV heparin continue for 48 hours Bedside echocardiogram showed no new wall motion abnormality Case discussed with Dr. Greer he recommend to load patient with Plavix 300 mg today followed by 75 mg daily stress test on Wednesday, will check lipid profile, follow blood pressure closely Angioedema Related to Gianni inhibitor, tongue swelling resolved will discontinue lisinopril and add in allergies. Hypertension stable BP continue home medication. Code status full code DVT prophylaxis on IV heparin Quality Stroke Does the patient have a stroke diagnosis?: No VTE Prior VTE?: No VTE Risk Level:: Medical - moderate - high VTE Device Contraindication: Treatment Not Indicated VTE Drug Contraindication: N/A - Med Ordered
[2021-09-13 17:41] LABS: PTT Heparin Drip 115.3 SEC (53-77.9)
[2021-09-13 18:22] LABS: PTT Heparin Drip 116.8 SEC (53-77.9)
[2021-09-13] MEDS: Clopidogrel Bisulfate 300 MG TABLET PO (18:34)
[2021-09-13 19:44] LABS: PTT Heparin Drip 69.6 SEC (53-77.9)
--- NOTE | 2021-09-13 19:51 | PC.NURSE ---
heparin drip restarted for a ptthd 69.6. protocal followed, rate decreaed by 4. and restarted. no ss of bleeding pt anson well.
[2021-09-13] MEDS: Atorvastatin Calcium 80 MG TABLET PO (21:27)
[2021-09-14] VITALS (8 sets, daily range): BP systolic 119–144; BP diastolic 43–87; PULSE 52–64; RESP 16–20; TEMP 36.1–36.7; O2SAT 95–99; BMI 34.6
[2021-09-14 02:11] LABS: PTT Heparin Drip 44.1 SEC (53-77.9)
[2021-09-14] MEDS: Heparin Sodium,Porcine 5,000 UNIT/ML VIAL 4000 UNIT IVPUSH (03:00)
[2021-09-14 09:04] LABS: Hematocrit 38.3 % (37.0-47.0); Hemoglobin 12.6 g/dl (12.0-16.0); Mean Corpuscular HGB Conc 32.9 g/dl (31.0-35.0); Mean Corpuscular Hemoglobin 30.4 pg (27.0-33.0); Mean Corpuscular Volume 92.3 fL (80.0-98.0); Mean Platelet Volume 10.4 fL (9.4-12.3); Platelet Count 173 X10*3/uL (160-400); Red Blood Count 4.15 X10*6/uL (4.20-5.50); Red Cell Distribution Width 13.7 % (11.0-16.0); White Blood Count 9.1 X10*3/uL (4.8-10.8)
[2021-09-14 09:12] LABS: INTERNATIONAL NORM RATIO 1.1 (0.9-1.1); Prothrombin Time 12.1 SEC (9.9-13.0)
[2021-09-14 09:14] LABS: PTT Heparin Drip 100.6 SEC (53-77.9)
[2021-09-14 09:19] LABS: Cholesterol 130 mg/dL; HDL Cholesterol 54 mg/dL; LDL Cholesterol Calculated 68 mg/dl; Triglycerides 42 mg/dL
[2021-09-14] MEDS: Metoprolol Succinate ER 12.5 MG HALFTAB.ER.24H PO (09:47)
--- NOTE | 2021-09-14 09:55 | PC.NURSE ---
PTT 100.6 GTT DAMIEN FOR AN HOUR AND WILL RE START PRE PROTICOL
--- NOTE | 2021-09-14 10:44 | HO.PM.IMPN ---
Subjective Subjective Date of Service: 09/14/21 Interval History: Being followed for non ST-elevation MO, denies chest pain, no shortness of breath had an uneventful night has been ambulating to bathroom with no symptoms. Denies tongue swelling or difficulty swallowing. Review of Systems General no headache, no dizziness no fever chills. CVS no chest pain, no palpitation. Respiratory no cough no sob. Gastrointestinal no nausea no vomiting, no abdominal pain Skin no rash Review of Systems: Yes all other systems are reviewed and are negative Physical Exam Vital Signs: Vital Signs: Last Vital Signs Temp 98.0 F 09/14/21 04:00 Pulse 52 09/14/21 09:47 Resp 16 09/14/21 04:00 BP 119/48 L 09/14/21 09:47 Pulse Ox 95 09/14/21 04:00 Body Mass Index 35.6 General awake alert x3, no acute distress.? Oral mucosa moist, tongue midline, no swelling Neck supple no JVD. CVS? regular rate rhythm, Respiratory lungs clear to auscultation, no respiratory distress, no wheeze, no rhonchi. Gastrointestinal abdomen soft, nontender, bowel sounds audible,? no guarding , no rigidity. Extremities no? edema. Neuro nonfocal Skin no rash Psych appropriate affect Musculoskeletal no deformity Objective Data Active Medications Acetaminophen (Acetaminophen 325 Mg Tablet) 650 mg PO Q6H PRN PRN Reason: Pain, Mild (Pain Scale 1-3) Atorvastatin Calcium (Atorvastatin Calcium 80 Mg Tablet) 80 mg PO BEDTIME [facility] Last Admin: 09/13/21 21:27 Dose: 80 mg Documented by: MCTA Heparin Sodium (Porcine) (Heparin Sodium,Porcine 5,000 Unit/Ml Vial) 4,000 unit 40 unit/kg (4000 unit) IVPUSH PROTOCOL BOLUS PRN; Protocol PRN Reason: 40 unit/kg - Heparin Protocol Last Admin: 09/14/21 03:00 Dose: 4,000 unit Documented by: ANDLIOR Heparin Sodium (Porcine) (Heparin Sodium,Porcine 5,000 Unit/Ml Vial) 8,000 unit 80 unit/kg (8000 unit) IVPUSH PROTOCOL BOLUS PRN; Protocol PRN Reason: 80 unit/kg - Heparin Protocol Heparin Sodium/Sodium Chloride () 25,000 unit in 250 mls @ 0 mls/hr IVCONT .Q0M [facility]; Protocol Last Titration: 09/14/21 03:01 Dose: 7.98 units/kg/hr, 8 mls/hr Documented by: ALYSSA Cosigned by: KEVIN Metoprolol Succinate (Metoprolol Succinate Er 12.5 Mg Halftab.Er.24h) 12.5 mg PO DAILY [facility]; Protocol Last Admin: 09/14/21 09:47 Dose: 12.5 mg Documented by: ABDULKADIR Ondansetron HCl (Ondansetron Hcl 4 Mg/2 Ml Vial) 4 mg IVPUSH Q8H PRN PRN Reason: Nausea and Vomiting Pharmacy Consult (Consult Rx Perform Med Rec) 1 each MISCELLANE ONCE PRN PRN Reason: Consult order Sodium Chloride (0.9 % Sodium Chloride Flush 3 Ml Syringe) 3 ml IVFLUSH QSHIFT [facility] Last Admin: 09/14/21 09:48 Dose: Not Given Documented by: ABDULKADIR Non-Admin Reason: IV Running Labs CBC & Chem 7: 09/14/21 08:56 09/13/21 04:55 Labs: Laboratory Results - last 24 hr 09/13/21 09/13/21 09/13/21 10:32 16:56 17:55 MCV MCH MCHC RDW Plt Count MPV Absolute Nucleated RBC Nucleated RBC % (auto) PT 11.8 INR 1.0 APTT 28.2 PTT (Heparin Protocol) 115.3 H* 116.8 H* Troponin I High Sens Triglycerides Cholesterol LDL Cholesterol, Calc HDL Cholesterol 09/13/21 09/14/21 09/14/21 18:56 01:57 08:56 MCV 92.3 MCH 30.4 MCHC 32.9 RDW 13.7 Plt Count 173 MPV 10.4 Absolute Nucleated RBC 0.000 Nucleated RBC % (auto) 0.0 PT INR APTT PTT (Heparin Protocol) 69.6 D 44.1 L D Troponin I High Sens Triglycerides Cholesterol LDL Cholesterol, Calc HDL Cholesterol 09/14/21 09/14/21 09/14/21 08:56 08:56 08:56 MCV MCH MCHC RDW Plt Count MPV Absolute Nucleated RBC Nucleated RBC % (auto) PT 12.1 INR 1.1 APTT PTT (Heparin Protocol) 100.6 H D Troponin I High Sens 1322.0 H* D Triglycerides Cholesterol LDL Cholesterol, Calc HDL Cholesterol 09/14/21 08:56 MCV MCH MCHC RDW Plt Count MPV Absolute Nucleated RBC Nucleated RBC % (auto) PT INR APTT PTT (Heparin Protocol) Troponin I High Sens Triglycerides 42 Cholesterol 130 LDL Cholesterol, Calc 68 HDL Cholesterol 54 Assessment and Plan (1) Angioedema: Status: Acute (2) Demand ischemia: Status: Acute (3) Non-ST elevation MO (NSTEMI): Status: Acute (4) CAD (coronary artery disease): Status: Acute (5) HTN (hypertension): Status: Acute (6) Hyperlipidemia: Status: Acute (7) PVCs (premature ventricular contractions): Status: Acute Assessment and Plan: 72-year-old female patient with past medical history significant for coronary artery disease with 70% lad lesion, history of rights coronary artery stent placement , presented to [facility] due to tongue swelling patient treated with epinephrine subsequently developed chest discomfort and noted to have elevated troponin consistent with non ST elevation MO likely related to epinephrine and stress with underlying coronary disease. Non ST-elevation MO With history of underlying coronary artery disease with 70% lad lesion, chest pain started after use of epinephrine likely stress induced No arrhythmias on tele monitor no evidence of CHF Continue IV heparin x48hrs will end tomorrow morning Bedside echocardiogram showed no new wall motion abnormality has chronic inferior segment akinesis, normal EF 55-60% Troponin bump from 85 to 579 and 1322 today but since patient clinically stable will hold off on further testing Continue Plavix 75 mg daily, status post loading dose 300 yesterday Continue statins low-dose beta-noreen LDL 68, total cholesterol 130 stress test on Wednesday, will keep her NPO Angioedema Related to Gianni inhibitor, tongue swelling resolved will discontinue lisinopril and added in allergies. Hypertension soft blood pressure, continue low-dose beta-blockers follow BP closely Chronic PVCs continue low-dose beta-noreen. Code status full code DVT prophylaxis on IV heparin Quality Stroke Does the patient have a stroke diagnosis?: No VTE Prior VTE?: No VTE Risk Level:: Medical - moderate - high VTE Device Contraindication: Treatment Not Indicated VTE Drug Contraindication: N/A - Med Ordered
[2021-09-14] MEDS: Heparin Sodium,Porcine/1/2NS 25,000 UNIT/250 ML IV.SOLN 8 UNIT IVCONT (11:04)
[2021-09-14] MEDS: Clopidogrel Bisulfate 75 MG TABLET PO (12:21)
--- NOTE | 2021-09-14 12:49 | PC.NURSE ---
patient A+Ox4. Elevated troponin. Provider aware. Heparin gtt was paused for 1 hour this morning per protocol. Restarted at 1100 at 3.98 units. Neuro status WDL. next aPTT due at 1700. VSS. Meds given per JAN. Resting safely.
--- NOTE | 2021-09-14 13:18 | PM.PNCARD ---
Subjective Subjective Date of Service: 09/14/21 Interval history: She is asymptomatic. Has been on heparin drip. Physical Exam Vital Signs: Last Vital Signs Temp 98 F 09/14/21 12:23 Pulse 55 09/14/21 12:23 Resp 18 09/14/21 12:23 BP 135/87 09/14/21 12:23 Pulse Ox 99 09/14/21 12:23 Body Mass Index 35.6 GENERAL APPEARANCE: in no acute distress, pleasant. NECK: no carotid bruit, no jugular venous distention. SKIN: no suspicious lesions, warm and dry. HEART: no murmurs, regular rate and rhythm. LUNGS: clear to auscultation bilaterally. ABDOMEN: soft, nontender. EXTREMITIES: no edema. PERIPHERAL PULSES: equal. NEUROLOGIC: No gross deficits, AAO X 3 Results Labs and Meds Result diagrams: 09/14/21 08:56 09/13/21 04:55 Lab results: Laboratory Results - last 24 hr 09/13/21 09/13/21 09/13/21 16:56 17:55 18:56 WBC RBC Hgb Hct MCV MCH MCHC RDW Plt Count MPV Absolute Nucleated RBC Nucleated RBC % (auto) PT INR PTT (Heparin Protocol) 115.3 H* 116.8 H* 69.6 D Troponin I High Sens Triglycerides Cholesterol LDL Cholesterol, Calc HDL Cholesterol 09/14/21 09/14/21 09/14/21 01:57 08:56 08:56 WBC 9.1 RBC 4.15 L Hgb 12.6 Hct 38.3 MCV 92.3 MCH 30.4 MCHC 32.9 RDW 13.7 Plt Count 173 MPV 10.4 Absolute Nucleated RBC 0.000 Nucleated RBC % (auto) 0.0 PT 12.1 INR 1.1 PTT (Heparin Protocol) 44.1 L D Troponin I High Sens Triglycerides Cholesterol LDL Cholesterol, Calc HDL Cholesterol 09/14/21 09/14/21 09/14/21 08:56 08:56 08:56 WBC RBC Hgb Hct MCV MCH MCHC RDW Plt Count MPV Absolute Nucleated RBC Nucleated RBC % (auto) PT INR PTT (Heparin Protocol) 100.6 H D Troponin I High Sens 1322.0 H* D Triglycerides 42 Cholesterol 130 LDL Cholesterol, Calc 68 HDL Cholesterol 54 Progress Note: A&P Assessment and plan (1) Angioedema: Status: Acute (2) Non-ST elevation [place] (NSTEMI): Status: Acute Assessment and Plan: 76-year-old female with known history of coronary disease with previous inferior wall TX and 70% mid LAD stenosis based on cardiac catheterization from 2013 presented with angioedema from lisinopril and received epinephrine. After receiving epinephrine her blood pressure went up and she had chest pain with EKG changes. She ruled in for NSTEMI. He was started on heparin drip and has been stable. She was loaded with Plavix. she likely had epinephrine related high blood pressure and then NSTEMI. He does have known coronary disease and previous non revascularized 70% mid LAD stenosis. She we had discussion about cardiac catheterization and stenting of LAD versus and ischemia guided approach of stress testing. She wishes to undergo stress testing. Thank you for allowing me to participate in the care of your patient. Please feel free to contact me if you have any questions. Fall Risk Details Current Medications: Current Medications Acetaminophen (Acetaminophen 325 Mg Tablet) 650 mg PO Q6H PRN PRN Reason: Pain, Mild (Pain Scale 1-3) Aspirin (Aspirin 81 Mg Tab.Chew) 81 mg PO DAILY [facility] Atorvastatin Calcium (Atorvastatin Calcium 80 Mg Tablet) 80 mg PO BEDTIME [facility] Last Admin: 09/13/21 21:27 Dose: 80 mg Documented by: Clopidogrel Bisulfate (Clopidogrel Bisulfate 75 Mg Tablet) 75 mg PO DAILY [facility] Last Admin: 09/14/21 12:21 Dose: 75 mg Documented by: Heparin Sodium (Porcine) (Heparin Sodium,Porcine 5,000 Unit/Ml Vial) 4,000 unit 40 unit/kg (4000 unit) IVPUSH PROTOCOL BOLUS PRN; Protocol PRN Reason: 40 unit/kg - Heparin Protocol Last Admin: 09/14/21 03:00 Dose: 4,000 unit Documented by: Heparin Sodium (Porcine) (Heparin Sodium,Porcine 5,000 Unit/Ml Vial) 8,000 unit 80 unit/kg (8000 unit) IVPUSH PROTOCOL BOLUS PRN; Protocol PRN Reason: 80 unit/kg - Heparin Protocol Heparin Sodium/Sodium Chloride () 25,000 unit in 250 mls @ 0 mls/hr IVCONT .Q0M [facility]; Protocol Last Admin: 09/14/21 11:04 Dose: 7.98 units/kg/hr, 8 mls/hr Documented by: Metoprolol Succinate (Metoprolol Succinate Er 12.5 Mg Halftab.Er.24h) 12.5 mg PO DAILY [facility]; Protocol Last Admin: 09/14/21 09:47 Dose: 12.5 mg Documented by: Ondansetron HCl (Ondansetron Hcl 4 Mg/2 Ml Vial) 4 mg IVPUSH Q8H PRN PRN Reason: Nausea and Vomiting Pharmacy Consult (Consult Rx Perform Med Rec) 1 each MISCELLANE ONCE PRN PRN Reason: Consult order Sodium Chloride (0.9 % Sodium Chloride Flush 3 Ml Syringe) 3 ml IVFLUSH QSHIFT [facility] Last Admin: 09/14/21 09:48 Dose: Not Given Documented by: Time Spent With Patient Time: Total time spent is greater than 50% in coordination of care (as documented) at patient's floor/unit and/or counseling patient: Time with patient: 15 - 24 minutes Progress Note: Quality Stroke Does the patient have a stroke diagnosis?: No Procedures Date of Service Date of Service: 09/14/21
[2021-09-14] MEDS: Aspirin 81 MG TAB.CHEW PO (13:31)
--- NOTE | 2021-09-14 15:36 | MHC.CM.PN ---
CM MET WITH PT AND WHO WAS AT BEDSIDE PT REPORTS BEING FULLY INDEPENDENT PT HAS NO DME AND NO SERVICES PT CONFIRMS LANDY GOODWIN IS HER PCP PT REPORTS SHE HAS A HCP NAMING HER , MONTSE, HER AGENT IMM DELIVERED ORIGINAL GIVEN TO PT COPY TO [facility].
[2021-09-14 16:51] LABS: PTT Heparin Drip 36.5 SEC (53-77.9)
[2021-09-14] MEDS: Heparin Sodium,Porcine 5,000 UNIT/ML VIAL 8000 UNIT IVPUSH (17:05)
[2021-09-14] MEDS: Atorvastatin Calcium 80 MG TABLET PO (22:48)
[2021-09-14] MEDS: Heparin Sodium,Porcine/1/2NS 25,000 UNIT/250 ML IV.SOLN 8.98 UNIT IVCONT (23:08)
[2021-09-14 23:37] LABS: PTT Heparin Drip 192.1 SEC (53-77.9)
[2021-09-15 00:32] LABS: PTT Heparin Drip 157.3 SEC (53-77.9)
[2021-09-15 01:12] LABS: PTT Heparin Drip 106.7 SEC (53-77.9)
[2021-09-15 03:02] LABS: PTT Heparin Drip 59.4 SEC (53-77.9)
[2021-09-15 03:12] VITALS: BP 140/67; PULSE 58; RESP 20; TEMP 36.7; O2SAT 98
[2021-09-15 07:10] VITALS: BP 155/73; PULSE 62; RESP 18; TEMP 36.5; O2SAT 98
[2021-09-15 08:08] LABS: PTT Heparin Drip 41.1 SEC (53-77.9)
[2021-09-15 09:05] VITALS: BP 158/73; PULSE 62
[2021-09-15] MEDS: Metoprolol Succinate ER 12.5 MG HALFTAB.ER.24H PO (09:05)
[2021-09-15 09:06] VITALS: BP 153/73; PULSE 62
[2021-09-15] MEDS: amLODIPine Besylate 5 MG TABLET PO (09:06)
[2021-09-15] MEDS: Aspirin 81 MG TAB.CHEW PO (09:06)
[2021-09-15] MEDS: Clopidogrel Bisulfate 75 MG TABLET PO (09:07)
--- NOTE | 2021-09-15 09:11 | P.PNCA_ITS ---
Subjective Subjective Date of Service: 09/15/21 Principal diagnosis: NSTEMI Interval history: Devora has no recurrent symptoms of chest discomfort. Blood pressure is elevated. Troponins are still up trending to 1300. EKG changes have normalized. Review of Systems Review of Systems Yes all other systems are reviewed and are negative Gastrointestinal: Reports no additional gastrointestinal complaints Genitourinary: Reports no additional female genitourinary complaints Musculoskeletal: Reports no additional musculoskeletal complaints Skin/Breast: Reports system reviewed and no additional complaints, except as docu Psychiatric: Reports no additional psychiatric complaints Physical Exam Vital Signs: Last Vital Signs Temp 97.7 F 09/15/21 07:10 Pulse 62 09/15/21 07:10 Resp 18 09/15/21 07:10 BP 155/73 H 09/15/21 07:10 Pulse Ox 98 09/15/21 07:10 Body Mass Index 34.6 Const General: cooperative, comfortable, alert and awake Nutritional Appearance: obese Orientation/consciousness: patient oriented x3 Neck Neck: Yes trachea midline, Yes supple and Yes no JVD Resp Effort & Inspection: normal respiratory effort Auscultation: clear to auscultation bilaterally Cardio Jugular venous distension: no JVD Palpation: normal PMI Rate: regular rate Rhythm: regular rhythm Heart sounds: S1 normal heart sound present, S2 normal heart sound present, no click, no gallops, no murmurs and no rubs Skin General skin exam: no rashes or lesions noted Neuro General: patient oriented x3 and no focal motor deficits Extrem General: Yes no clubbing, cyanosis or edema Psych Appearance: grossly normal Results Labs and Meds Result diagrams: 09/14/21 08:56 09/13/21 04:55 Lab results: Laboratory Results - last 24 hr 09/14/21 09/14/21 09/14/21 08:56 08:56 08:56 PT 12.1 INR 1.1 PTT (Heparin Protocol) 100.6 H D Troponin I High Sens 1322.0 H* D Triglycerides Cholesterol LDL Cholesterol, Calc HDL Cholesterol 09/14/21 09/14/21 09/14/21 08:56 16:27 22:52 PT INR PTT (Heparin Protocol) 36.5 L D 192.1 H* D Troponin I High Sens Triglycerides 42 Cholesterol 130 LDL Cholesterol, Calc 68 HDL Cholesterol 54 09/15/21 09/15/21 09/15/21 00:00 01:00 02:16 PT INR PTT (Heparin Protocol) 157.3 H* 106.7 H D 59.4 D Troponin I High Sens Triglycerides Cholesterol LDL Cholesterol, Calc HDL Cholesterol 09/15/21 07:46 PT INR PTT (Heparin Protocol) 41.1 L D Troponin I High Sens Triglycerides Cholesterol LDL Cholesterol, Calc HDL Cholesterol Progress Note: A&P Assessment and plan (1) Non-ST elevation [place] (NSTEMI): Status: Acute Assessment and Plan: NSTEMI which is possibly secondary to epinephrine use however could also be changing plaque morphology with epinephrine use in a patient with known CAD in the mid LAD with EKG changes in the LAD territory. With up trending troponin suggestive of myocardial injury. There is basal inferior wall motion abnormality which is in the RCA territory. We discussed about management. Given that she had chest discomfort associated with EKG changes and myocardial injury, I would think she would benefit with cardiac catheterization. This was discussed with her. She understands and agrees. Possible acute plaque morphology changes can happen with epinephrine. Will transfer to [facility] further the same. She understands the risks, benefits, alternatives 2nd opinion to procedure. Meanwhile continue IV heparin, aspirin, high-intensity statin, metoprolol. Will add Norvasc for blood pressure control. Fall Risk Details Current Medications: Current Medications Acetaminophen (Acetaminophen 325 Mg Tablet) 650 mg PO Q6H PRN PRN Reason: Pain, Mild (Pain Scale 1-3) Aspirin (Aspirin 81 Mg Tab.Chew) 81 mg PO DAILY [facility] Last Admin: 09/14/21 13:31 Dose: 81 mg Documented by: Atorvastatin Calcium (Atorvastatin Calcium 80 Mg Tablet) 80 mg PO BEDTIME [facility] Last Admin: 09/14/21 22:48 Dose: 80 mg Documented by: Clopidogrel Bisulfate (Clopidogrel Bisulfate 75 Mg Tablet) 75 mg PO DAILY [facility] Last Admin: 09/14/21 12:21 Dose: 75 mg Documented by: Heparin Sodium (Porcine) (Heparin Sodium,Porcine 5,000 Unit/Ml Vial) 4,000 unit 40 unit/kg (4000 unit) IVPUSH PROTOCOL BOLUS PRN; Protocol PRN Reason: 40 unit/kg - Heparin Protocol Last Admin: 09/14/21 03:00 Dose: 4,000 unit Documented by: Heparin Sodium (Porcine) (Heparin Sodium,Porcine 5,000 Unit/Ml Vial) 8,000 unit 80 unit/kg (8000 unit) IVPUSH PROTOCOL BOLUS PRN; Protocol PRN Reason: 80 unit/kg - Heparin Protocol Last Admin: 09/14/21 17:05 Dose: 8,000 unit Documented by: Heparin Sodium/Sodium Chloride () 25,000 unit in 250 mls @ 0 mls/hr IVCONT .Q0M [facility]; Protocol Last Titration: 09/15/21 03:00 Dose: 4.96 units/kg/hr, 4.97 mls/hr Documented by: Metoprolol Succinate (Metoprolol Succinate Er 12.5 Mg Halftab.Er.24h) 12.5 mg PO DAILY [facility]; Protocol Last Admin: 09/14/21 09:47 Dose: 12.5 mg Documented by: Ondansetron HCl (Ondansetron Hcl 4 Mg/2 Ml Vial) 4 mg IVPUSH Q8H PRN PRN Reason: Nausea and Vomiting Pharmacy Consult (Consult Rx Perform Med Rec) 1 each MISCELLANE ONCE PRN PRN Reason: Consult order Sodium Chloride (0.9 % Sodium Chloride Flush 3 Ml Syringe) 3 ml IVFLUSH QSHIFT [facility] Last Admin: 09/14/21 22:48 Dose: Not Given Documented by: Time Spent With Patient Time: Total time spent is greater than 50% in coordination of care (as documented) at patient's floor/unit and/or counseling patient: Time with patient: 25 - 35 minutes Progress Note: Quality Stroke Does the patient have a stroke diagnosis?: No Procedures Date of Service Date of Service: 09/15/21
[2021-09-15] MEDS: Heparin Sodium,Porcine 5,000 UNIT/ML VIAL 4000 UNIT IVPUSH (11:05)
[2021-09-15] MEDS: 0.9 % Sodium Chloride Flush 3 ML SYRINGE IVFLUSH (11:07)
[2021-09-15 11:15] VITALS: BP 142/65; PULSE 59; RESP 18; TEMP 36.3; O2SAT 97
--- NOTE | 2021-09-15 11:26 | MHC.CM.PN ---
pt is being trnfered to [facility] [place] for cardiac intervention. cm to cont. to follow.
--- NOTE | 2021-09-15 11:31 | P.DS_ITS ---
DS: Providers Provider Date of Service: 09/15/21 Date of admission: 09/13/21 13:01 Primary care physician: Ruddy Gray MD Consults: 09/13/21 10:03 Consult to Cardiology Routine Consulting Provider: Afshin Greer Reason for consultation: elevated troponin Has provider been notified: Yes DS: Diagnosis Discharge Diagnosis (1) Non-ST elevation [place] (NSTEMI): Status: Acute DS: Summary Hospital Course Hospital Course: 76-year-old female with past medical history of coronary artery disease, hypertension, hyperlipidemia , status post cardiac catheterization with 70% lad lesion with no recent episodes of angina has chronic shortness of breath with exertion presented to [facility] due to tongue swelling, patient took Benadryl at home without any improvement therefore came to the emergency , patient denied any associated symptoms of shortness of breath She was treated with Pepcid,iv Solu Medrol and epi ,Shortly after receiving epi patient experienced chest tightness/pain without radiation and concomitant shortness of breath.? Patient was provided with supplemental oxygen and EKG was obtained and found to be consistent with demand ischemia likely secondary to increased work from epinephrine, subsequently her chest pain resolved and repeat EKG normalized patient noted to have significant bump in her troponin therefore patient is started on IV heparin as per Cardiology recommendation and is now being admitted to [facility] with a diagnosis of non ST elevation [place] Hospital course: Cardiology consult:NSTEMI which is possibly secondary to epinephrine use however could also be changing plaque morphology with epinephrine use in a patient with known CAD in the mid LAD with EKG changes in the LAD territory.? With up trending troponin suggestive of myocardial injury.? There is basal inferior wall motion abnormality which is in the RCA territory.? At this point patient will be transferred to [facility] for further imaging as per Cardiology Time Spent with Patient Time attestation: Total time spent providing and/or coordinating discharge services: Discharge coordination time: Greater than 30 minutes Quality: Stroke Does the patient have a stroke diagnosis?: No Physical Exam Vital Signs: Vital Signs: Last Vital Signs Temp 97.4 F 09/15/21 11:15 Pulse 59 09/15/21 11:15 Resp 18 09/15/21 11:15 BP 142/65 H 09/15/21 11:15 Pulse Ox 97 09/15/21 11:15 Body Mass Index 34.6 Const: Other: No acute distress HENMT: Other: Oropharynx clear membranes moist Resp: Other: Clear to auscultation bilaterally no rales rhonchi or wheezes Cardio: Other: No S4; positive S1-S2; no S3 murmur rubs gallops GI: Other: Soft nontender nondistended normoactive bowel sounds all 4 quadrants Neuro: Other: Cranial nerves 2-12 grossly intact as tested. Motor is 5/5 all extremities. Sensation intact cognition appropriate Extrem: Other: No edema bilaterally DS: Data Data Completed and Pending Labs on day of discharge: Laboratory Results - last 24 hr 09/14/21 09/14/21 09/15/21 16:27 22:52 00:00 PTT (Heparin Protocol) 36.5 L D 192.1 H* D 157.3 H* 09/15/21 09/15/21 09/15/21 01:00 02:16 07:46 PTT (Heparin Protocol) 106.7 H D 59.4 D 41.1 L D Discharge Plan Discharge Patient Disposition: [facility] Discharge Diagnosis: NSTEMI Referrals: [facility] [Outside] - 1 Week Ruddy Gray MD [Primary Care Provider] - 2 days Discharge Medications: New acetaminophen 325 mg Tablet 650 mg PO Q6H PRN (Reason: Pain, Mild (Pain Scale 1-3)) Qty: 30 RF: 0 clopidogrel 75 mg Tablet 75 mg PO DAILY Qty: 30 RF: 0 amlodipine 5 mg Tablet 5 mg PO DAILY Qty: 30 RF: 0 heparin (porcine) 5,000 unit/mL Solution 4,000 unit IVPUSH PROTOCOL BOLUS PRN (Reason: 40 Unit/Kg - Heparin Protocol) Qty: 10 RF: 0 heparin (porcine) 5,000 unit/mL Solution 8,000 unit IVPUSH PROTOCOL BOLUS PRN (Reason: 80 Unit/Kg - Heparin Protocol) Qty: 10 RF: 0 heparin(porcine) in 0.45% NaCl 25,000 unit/250 mL Parenteral Solution 25,000 unit continuous IV infusion .Q0M Qty: 250 RF: 0 Continued atorvastatin 80 mg tablet 80 mg PO DAILY Qty: 90 RF: 3 metoprolol succinate 25 mg tablet extended release 24 hr 12.5 mg PO DAILY 90 Days Qty: 45 RF: 1 lisinopril 10 mg tablet 1 tab PO DAILY RF: 0 Discharge Orders: Discharge Order (Routine); Ordered 09/15/21 Ordered By: Cedrick Espinosa Diet: advance to usual diet Activity on Discharge: As tolerated Stand Alone Forms: Patient Portal Discharge page Activity Restrictions/Additional Instructions: return to ED for any worsening symptoms or concerns STOP LISINOPRIL Care Plan Goals: As per cardiology Health Concerns: Maintain pain-free status Plan of Treatment: Transferred to [facility] [place] for calf Assessment: Stable on transfer Patient Instructions: Angioedema (ED)
== END 2021-09-15 12:53 | disposition short-term general hospital (02) | DRG 282 ==
LOC: HO.ED 10:03 → HO.EDOVER 13:17 → HO.IMC 09-14 19:08
PROVIDERS: Hospitalist; Student in an Organized Health Care Education/Training Program; Admitting Provider Hospitalist; Emergency Provider Emergency Medicine; PCP Internal Medicine; Visit Provider Hospitalist
DX: I21.4 Non-ST elevation (NSTEMI) myocardial infarction (principal); T78.3XXA Angioneurotic edema, initial encounter; T46.4X5A Adverse effect of angiotensin-converting-enzyme inhibitors, initial encounter; Y92.9 Unspecified place or not applicable; I49.3 Ventricular premature depolarization; I25.10 Atherosclerotic heart disease of native coronary artery without angina pectoris; I10 Essential (primary) hypertension; E78.5 Hyperlipidemia, unspecified; Z20.822 Contact with and (suspected) exposure to COVID-19; Z88.2 Allergy status to sulfonamides; Z79.02 Long term (current) use of antithrombotics/antiplatelets; Z79.899 Other long term (current) drug therapy
CPT/HCPCS: 36415; 71045; 80053; 80061; 84484; 85025; 85027; 85610; 85730; 87635; 93005; 93308; 96372; 96374; 96375; 99285; J0171; J2930; Q9957

== ENCOUNTER → 2021-10-01 08:38 | Outpatient (BNVA) | payer MEDICARE, SELFPAY | PROVIDERS: PCP Internal Medicine; Referring Provider Internal Medicine; Visit Provider Internal Medicine Cardiovascular Disease | DX: I25.10 Atherosclerotic heart disease of native coronary artery without angina pectoris (principal); I10 Essential (primary) hypertension | CPT/HCPCS: 99212 ==

== ENCOUNTER 2021-10-22 08:17 | Outpatient (REF) | payer MEDICARE, SELFPAY ==
--- NOTE | ~2021-10-22 | MM_ITS ---
EXAMINATION: BONE DENSITOMETRY CLINICAL INDICATION: Osteopenia. COMPARISON: Previous BD dated 08/10/2019 and baseline BD dated 03/11/2010. TECHNIQUE: Using a [employer] DXA System (software version: 13.1) manufactured by [employer], dual-energy x-ray absorptiometry was performed of the lumbar spine and left hip. The images are of good technical quality. Summary results are attached. FINDINGS: AP SPINE L1-L4: Current: BMD 1.317 g/cm2, Z-score 2.0, T-score 1.1, normal, 5.1% increase from previous, 11.1% increase from baseline (<5% change is not significant). Prior: BMD 1.253 g/cm2. Baseline: BMD 1.185 g/cm2. LEFT FEMUR, NECK: Current: BMD 0.807 g/cm2, Z-score -0.3, T-score -1.7, osteopenia. Prior: BMD 0.848 g/cm2. Baseline: BMD 1.029 g/cm2. LEFT FEMUR, TOTAL: Current: BMD 0.853 g/cm2, Z-score -0.1, T-score -1.2, osteopenia, 4.6% decrease from previous, 23.6% decrease from baseline (<5% change is not significant). Prior: BMD 0.894 g/cm2. Baseline: BMD 1.117 g/cm2. IDENTIFIED RISK FACTORS: Menopause, Thiazide. HISTORY OF FRACTURE: None listed. MEDICATIONS: Calcium, vitamin D. MM/XR DEXA axial skeleton IMPRESSION: 1. DIAGNOSIS: Osteopenia based on the lowest T-score value of -1.7 in the femoral neck applying World Health Organization criteria. 2. 10-YEAR FRACTURE RISK PREDICTION, FRAX: Major osteoporotic fracture (clinical spine, forearm, hip or shoulder) 10.9%. Hip fracture 2.3%. 3. Treatment Recommendations: NOF guidelines recommend consideration for treatment in postmenopausal women and men age 50 and older presenting with the following: -A hip or vertebral (clinical or morphometric) fracture. -T-score less than or equal to -2.5 at the femoral neck or spine after appropriate evaluation to exclude secondary causes. -Low bone mass at the hip or spine and a 10-year fracture probability by FRAX of greater than or equal to 3% for hip fracture or greater than or equal to 20% for major osteoporotic fracture based on the [place] adapted WHO algorithm. 4. Other Recommendations: All treatment decisions require clinical judgment and consideration of individual patient factors, including patient preferences, comorbidities, previous drug use, risk factors not captured in the FRAX model (e.g. frailty, falls, vitamin D deficiency, increased bone turnover, interval significant decline in bone density) and possible under or overestimation of fracture risk by FRAX. Additional medical evaluation for secondary cause of low bone mineral density may be appropriate. FUTURE SCAN RECOMMENDATION: People with diagnosed cases of osteoporosis or at high risk for fracture should have regular bone mineral density tests. For patients eligible for Medicare, routine testing is allowed once every 2 years. The testing frequency can be increased to one year for patients who have rapidly progressing disease, those who are receiving or discontinuing medical therapy to restore bone mass, or have additional risk factors.
--- NOTE | ~2021-10-22 | MM_ITS ---
EXAMINATION: MM SCREENING DIGITAL BREAST TOMOSYNTHESIS, BILATERAL CLINICAL INFORMATION: Screening. Asymptomatic. The lifetime risk of breast cancer based on the Tyrer-Cuzick Model is 2.8%. COMPARISON: Mammography: August 15, 2020 and studies dating back to March 29, 2014 TECHNIQUE: Digital breast tomosynthesis is performed in both the craniocaudal and mediolateral oblique views along with computer-aided detection (CAD). Synthesized 2D images are generated from the tomosynthesis. FINDINGS: There are scattered areas of fibroglandular density (ACR BI-RADS breast composition Category b). There are no significant masses, abnormal calcifications, or other abnormalities. MM/MM tomosynthesis screening BI IMPRESSION: There are no significant changes from prior study. ASSESSMENT: BI-RADS 1: Negative RECOMMENDATION: Routine annual mammography screening. This patient's information was entered into a reminder system with a target due date for their next mammogram.
== END 2021-10-22 08:18 | disposition home or self-care (01) ==
LOC: HO.MAMMO 08:17
PROVIDERS: PCP Internal Medicine; Visit Provider Nurse Practitioner Family
DX: Z12.31 Encounter for screening mammogram for malignant neoplasm of breast (principal); Z13.820 Encounter for screening for osteoporosis; M85.80 Other specified disorders of bone density and structure, unspecified site; Z78.0 Asymptomatic menopausal state; Z79.899 Other long term (current) drug therapy
CPT/HCPCS: 77063; 77067; 77080

== ENCOUNTER 2021-11-03 06:53 | Outpatient (REF) | payer MEDICARE, SELFPAY ==
[2021-11-03 11:55] LABS: Cholesterol 130 mg/dL; HDL Cholesterol 52 mg/dL; LDL Cholesterol Calculated 62 mg/dl; Triglycerides 80 mg/dL
[2021-11-05 13:52] LABS: CRP High Sensitivity 3.6 mg/L
== END 2021-11-03 06:54 | disposition home or self-care (01) ==
LOC: HO.HMGCLDS 06:53
PROVIDERS: PCP Internal Medicine; Visit Provider Internal Medicine Cardiovascular Disease
DX: I25.10 Atherosclerotic heart disease of native coronary artery without angina pectoris (principal); E78.5 Hyperlipidemia, unspecified
CPT/HCPCS: 36415; 80061; 86141

== ENCOUNTER → 2022-01-13 09:16 | Outpatient (BNVA) | payer MEDICARE, SELFPAY | PROVIDERS: PCP Internal Medicine; Referring Provider Internal Medicine; Visit Provider Internal Medicine Cardiovascular Disease | DX: I25.10 Atherosclerotic heart disease of native coronary artery without angina pectoris (principal); R06.02 Shortness of breath; I10 Essential (primary) hypertension; Z79.82 Long term (current) use of aspirin; Z79.899 Other long term (current) drug therapy | CPT/HCPCS: 99212 ==

== ENCOUNTER → 2022-01-21 09:24 | Outpatient (REF) | payer MEDICARE, SELFPAY ==
--- NOTE | 2022-01-21 09:29 | CA_ITS ---
Transthoracic Echocardiogram Patient (Last, First, Middle): Devora Aguirre, Gender: Female Date of : 1945 Age: 76 Procedure Date: 01/21/2022 Procedure Type: Transthoracic Echocardiogram Location: OP Height: 165.1 cm Weight: 92.53 kg BSA: 1.99 m2 Heart Rate: bpm BP: 132 / 64 mmHg Business Systems Administrator: MARIA DE JESUS Referring MD: Colin Vo MD Carding Utility Tender: Colin Vo MD Symptoms: R06.02 - Shortness of breath Study Quality: Good ECG Rhythm: Sinus Conclusions: - Normal LV systolic function with pseudonromal filling pattern Findings Left Ventricle Normal left ventricular size, thickness, and systolic function. The visually estimated ejection fraction is between 65-70%. There is no evidence of regional wall motion abnormalities. There is no dynamic left ventricular outflow tract obstruction. There is systolic anterior motion of the chordae of the mitral valve. Spectral Doppler is indicative of a pseudonormal filling pattern. E/E prime ratio is between 8 and 15 consistent with indeterminate filling pressures. There is mild septal asymmetric hypertrophy. Measured peak global endocardial longitudinal strain is - 18.9%, within normal limits Pericardium/Pleural There is no evidence of pericardial effusion. Measurements 2D Linear Measurements IVSd: 1.04 0.6-0.9/0.6-1.0 cm LVIDd: 5.44 3.9-5.3/4.2-5.9 cm LVIDd Index: 2.73 2.4-3.2/2.2-3.1 cm/m2 LVIDs: 2.82 2.0-3.6 cm LVPWd: 1.05 0.7-1.1 cm LV Mass: 276.61 67-162/88-224 g LV Mass Index: 139.00 43-95/49-115 g/m2 2D Systolic Function EF 4C: 67.90 >55% EF 2C: 62.80 >55% EF BiP: 65.30 >55% Mitral Valve MV Pk E: 1.06 MV PK A: 0.99 MV Decel Time: 198.00 E/A: 1.10 E'Lateral: 7.40 E'Medial: 5.00 E/E' Med: 21.20 E/E' Lat: 14.30 PHT: 58.00 MVA PHT: 3.79 Decel Perkins: 5.34 Diastolic Function MV Pk E: 1.06 MV Pk A: 0.99 E/A: 1.10 E'Medial: 5.00 E/E' Med: 21.20 E' Laterial: 7.40 E/E' Lat: 14.30 Updated in Other Vendor System with Status of Final Colin Vo MD electronically signed on 01/21/2022 9:25:40 PM with status of Final
== END ==
LOC: HO.CARD 09:24
PROVIDERS: PCP Internal Medicine; Visit Provider Internal Medicine Cardiovascular Disease
DX: I25.10 Atherosclerotic heart disease of native coronary artery without angina pectoris (principal); R06.02 Shortness of breath
CPT/HCPCS: 93308; 93356

== ENCOUNTER 2022-01-26 06:32 | Outpatient (REF) | payer MEDICARE, SELFPAY ==
[2022-01-26 12:17] LABS: Cholesterol 120 mg/dL; HDL Cholesterol 53 mg/dL; LDL Cholesterol Calculated 56 mg/dl; Triglycerides 57 mg/dL
== END 2022-01-26 06:33 | disposition home or self-care (01) ==
LOC: HO.HMGCLDS 06:32
PROVIDERS: PCP Internal Medicine; Visit Provider Internal Medicine Cardiovascular Disease
DX: I25.10 Atherosclerotic heart disease of native coronary artery without angina pectoris (principal)
CPT/HCPCS: 36415; 80061

== ENCOUNTER → 2022-07-21 09:55 | Outpatient (BNVA) | payer MEDICARE, SELFPAY | PROVIDERS: PCP Internal Medicine; Referring Provider Internal Medicine; Visit Provider Internal Medicine Cardiovascular Disease | DX: I25.10 Atherosclerotic heart disease of native coronary artery without angina pectoris (principal); I10 Essential (primary) hypertension; I49.3 Ventricular premature depolarization; I65.29 Occlusion and stenosis of unspecified carotid artery; Z79.899 Other long term (current) drug therapy | CPT/HCPCS: 99212 ==

== ENCOUNTER 2022-07-29 08:47 | Outpatient (REF) | payer MEDICARE, SELFPAY ==
--- NOTE | ~2022-07-29 | US_ITS ---
EXAMINATION: US EXTRACRANIAL CAROTID DUPLEX, BILATERAL CLINICAL INFORMATION: Carotid atherosclerosis COMPARISON: None TECHNIQUE: Real-time ultrasound and Doppler techniques (integrating B-mode 2-D vascular images, Doppler spectral analysis and color-flow Doppler imaging) were utilized to interrogate the extracranial carotid arteries, the vertebral arteries and proximal subclavian arteries bilaterally. The degree of stenosis is determined by criteria similar to NASCET. FINDINGS: Right Side: 1. There is no significant atherosclerotic plaque seen in the bifurcation/proximal ICA region. 2. The common carotid artery PSV proximally is 103 cm/s and distally 68 cm/s. 3. The proximal internal carotid artery velocities are 53 cm/s systolic and 14 cm/s diastolic. 4. The proximal external carotid artery PSV is 140 cm/s. 5. The vertebral artery shows antegrade flow. 6. The subclavian artery waveforms are normal. Left Side: 1. There is no significant atherosclerotic plaque seen in the bifurcation/proximal ICA region. 2. The common carotid artery PSV proximally is 179 cm/s and distally 73 cm/s. 3. The proximal internal carotid artery velocities are 50 cm/s systolic and 14 cm/s diastolic. 4. The proximal external carotid artery PSV is 77 cm/s. 5. The vertebral artery shows antegrade flow. 6. The subclavian artery waveforms are normal. US/US carotid duplex BI IMPRESSION: 1. RIGHT: Normal right internal carotid artery without atherosclerotic plaque or hemodynamically significant stenosis. 2. LEFT: Normal left internal carotid artery without atherosclerotic plaque or hemodynamically significant stenosis.
== END 2022-07-29 08:48 | disposition home or self-care (01) ==
LOC: HO.HMGCX 08:47
PROVIDERS: PCP Internal Medicine; Visit Provider Internal Medicine Cardiovascular Disease
DX: I65.29 Occlusion and stenosis of unspecified carotid artery (principal)
CPT/HCPCS: 93880

== ENCOUNTER 2022-08-03 03:40 | Inpatient (IN) | payer MEDICARE, SELFPAY ==
--- NOTE | ~2022-08-03 | CT_ITS ---
EXAMINATION: CT ABDOMEN AND PELVIS WITHOUT CONTRAST CLINICAL INFORMATION: Rectal bleeding with abdominal cramps. Rule out colitis. COMPARISON: None TECHNIQUE: Multidetector volumetric imaging was performed from the superior aspect of the liver through the pubic symphysis. Sagittal and coronal reformatted images were obtained on the technologist's workstation. This CT examination was performed using dose optimization techniques as appropriate, variously including the following: *Automated exposure control *Adjustment of mA and/or kV according to patient size (this includes techniques or standardized protocols for targeted exams where dose is matched to indication/reason for exam; i.e. extremities or head) *Use of iterative reconstruction technique DLP: 828 mGy-cm FINDINGS: Limited by lack of oral and intravenous contrast. LUNG BASES: The lung bases appear clear, with no evidence of inflammation or nodules. LIVER, GALLBLADDER, AND BILIARY TREE: Multiple punctate calcified hepatic granulomata. The liver otherwise appears unremarkable in size, shape, and attenuation. No focal hepatic lesion or biliary ductal dilatation is appreciated. Unremarkable appearance of the gallbladder. PANCREAS: Unremarkable SPLEEN: Multiple punctate calcified splenic granulomata. ADRENAL GLANDS: Unremarkable KIDNEYS AND URETERS: Multiple right renal cortical scars. Approximately 2 cm or less bilateral parapelvic renal cysts. The kidneys otherwise appear unremarkable in size, shape, and attenuation. No hydronephrosis, hydroureter, or calculi seen. BLADDER: Unremarkable GASTROINTESTINAL TRACT: Small hiatus hernia. Grossly unremarkable appearance of the small bowel. Extensive sigmoid diverticulosis without evidence of diverticulitis. Normal-appearing distal ileum. No evidence of appendicitis. ABDOMINAL WALL: No significant hernia is appreciated. LYMPH NODES: No evidence of adenopathy by size criteria. VASCULAR: Unremarkable PELVIC VISCERA: Unremarkable OSSEOUS STRUCTURES: Severe multilevel disc degenerative change. Grade 1 anterolisthesis of L4 on L5. Mild lumbar levocurvature. CT/CT abdomen pelvis wo IV con IMPRESSION: Limited by lack of oral and intravenous contrast. No acute finding. Extensive sigmoid diverticulosis without evidence of diverticulitis. Additional findings, as above.
[2022-08-03 04:01] VITALS: BP 170/70; PULSE 86; RESP 18; TEMP 36.7; O2SAT 98; BMI 34.6
[2022-08-03 04:33] LABS: Hematocrit 41.3 % (37.0-47.0); Hemoglobin 13.3 g/dl (12.0-16.0); Mean Corpuscular HGB Conc 32.2 g/dl (31.0-35.0); Mean Corpuscular Hemoglobin 28.9 pg (27.0-33.0); Mean Corpuscular Volume 89.6 fL (80.0-98.0); Mean Platelet Volume 9.9 fL (9.4-12.3); Platelet Count 188 X10*3/uL (160-400); Red Blood Count 4.61 X10*6/uL (4.20-5.50); Red Cell Distribution Width 14.3 % (11.0-16.0); White Blood Count 6.7 X10*3/uL (4.8-10.8)
[2022-08-03 04:47] LABS: Alanine Aminotransferase 17 U/L (0-31); Alkaline Phosphatase 83 U/L (39-117); Anion Gap 16 (12-20); Aspartate Amino Transferase 24 U/L (5-31); Bilirubin Direct 0.2 mg/dL (0.0-0.5); Bilirubin Total 0.3 mg/dL (0.0-1.0); Blood Urea Nitrogen 25 mg/dL (9-16); Calcium 9.2 mg/dL (8.4-10.2); Carbon Dioxide 24 mmol/L (22-29); Chloride 107 mmol/L (96-108); Creatinine Clr Calc Pharmacy 58.4; Estimated Glomerular Filt Rate 59; Glucose Random 118 mg/dL (60-115); Lipase 78 U/L (8-78); Potassium 3.8 mmol/L (3.3-5.1); Sodium 143 mmol/L (135-145); Total Protein 6.9 g/dL (6.5-8.0)
--- NOTE | 2022-08-03 09:13 | ED.GENADULT ---
HPI - General Adult General Chief complaint: General Medical Stated complaint: Blood in Stool Time Seen by Provider: 08/03/22 09:10 Source: patient Mode of arrival: ambulatory Limitations: no limitations History of Present Illness HPI narrative: 77-year-old female came in for evaluation of rectal bleeding. Last night patient started feeling lower abdominal cramps followed by loose stool with bright red blood per rectum, 1 hour later patient had the same episode as above stool is getting darker, no nausea, no vomiting, abdominal cramps is intermittent mostly in the lower abdomen, no fever chills. Patient had a prior episode of GI bleed was due to peptic ulcer disease as reported by the patient. Patient is taking Brilinta and baby aspirin daily. Has no abdominal pain now. Had 1 episode of dark stool in the emergency department. No CP, no SOB. Related Data Home Medications Medication Instructions Recorded Confirmed amlodipine 2.5 mg tablet 2.5 mg PO DAILY 01/13/22 07/21/22 Previous Rx's Medication Instructions Recorded acetaminophen 325 mg tablet 650 mg PO Q6H PRN Pain, Mild (Pain 09/15/21 Scale 1-3) #30 tabs aspirin 81 mg tablet,delayed 81 mg PO DAILY #30 tabs 10/01/21 release (Ecotrin Low Strength) clopidogrel 75 mg tablet 75 mg PO DAILY #90 tabs 10/01/21 nitroglycerin 0.4 mg sublingual 0.4 mg sublingual Q5M PRN chest 10/01/21 tablet pain #20 tabs ezetimibe 10 mg tablet (Zetia) 10 mg PO DAILY #90 tabs 11/10/21 atorvastatin 80 mg tablet 80 mg PO DAILY #90 tabs 11/18/21 metoprolol succinate 25 mg 12.5 mg PO DAILY 90 days #45 tabs 11/18/21 tablet,extended release 24 hr Allergies Allergy/AdvReac Type Severity Reaction Status Date / Time Sulfa (Sulfonamide Allergy Unknown rash Verified 06/22/22 09:01 Antibiotics) lisinopril Allergy Angioedema Verified 06/22/22 09:01 Review of Systems Review of Systems: All other systems are reviewed and are negative Constitutional: Reports as per HPI and Reports no additional constitutional complaints Eyes: Reports as per HPI and Reports no additional eye complaints Reports system reviewed and no additional complaints, except as documented Cardiovascular: Reports as per HPI and Reports no additional cardiovascular complaints Respiratory: Reports as per HPI and Reports no additional respiratory complaints Gastrointestinal: Reports as per HPI and Reports no additional gastrointestinal complaints Genitourinary: Reports no additional female genitourinary complaints Musculoskeletal: Reports no additional musculoskeletal complaints Skin/Breast: Reports system reviewed and no additional complaints, except as docu Psychiatric: Reports no additional psychiatric complaints Endocrine: Reports no additional endocrine complaints Hematologic/Lymphatic: Reports no additional hematologic/lymphatic complaints Allergic/Immunologic: Reports no additional allergic/immunologic complaints Reports system reviewed and no additional complaints, except as documented and Reports Abnormal speech present [facility] Past Medical History Medical History CAD (coronary artery disease) HTN (hypertension) Hyperlipidemia Non-ST elevation IN (NSTEMI) PVCs (premature ventricular contractions) Surgical History Hx of cardiac cath Hx of colonoscopy Hx of endoscopy Hx of knee surgery Stented coronary artery Family History Family History Father CVD (cardiovascular disease) Mother CVD (cardiovascular disease) Sister Cancer Social History Social History Household Members: Spouse Housing: House Do you presently have visiting nurse or other home services: No Alcohol intake: never Patient Tobacco Use Status: Never used Tobacco Advance Directives: No Advance Directives Information Provided: Yes service: No Current occupational status: retired Physical Exam ED Vital Signs: Vital Signs - 24 hr 08/03/22 04:01 08/03/22 09:24 Temperature 98.1 F 98.2 F Pulse Rate 86 66 Respiratory Rate 18 10 L Blood Pressure 170/70 H 169/72 H Pulse Oximetry 98 99 Oxygen Delivery Method Room Air Room Air BMI result Body Mass Index 34.6 Vital signs have been reviewed as appeared to be correct. Blood pressure normal. Heart rate normal. Respiration rate normal. Temperature normal. Oxygen saturation normal. Appearance: Alert. Oriented X3. No acute distress. Head: Normal external exam. Normocephalic. Atraumatic. No Lai signs noted. No raccoon eyes noted Eyes: PERRLA. EOMI. Conjunctiva and sclera normal. Eyelids normal. ENT: TM's Normal. Pharynx normal. Uvula midline. Moist mucous membranes. No trismus noted. No drooling noted. No muffled voice noted. Neck: Normal inspection. Neck supple. FROM. No adenopathy. Thyroid Normal. No meningeal signs. No neck mass noted. CVS: Normal heart rate and rhythm. Heart sound normal. No murmurs noted. Pulses normal throughout. Respiratory: No respiratory distress. Painless inspiration. Breath sounds normal. No wheezes/rales/rhonchi noted. Chest nontender. No accessory muscle usage noted or decreased air movement noted. Abdomen: Soft and nontender. Bowel sounds normal in all 4 quadrants. No distention noted. No organomegaly noted. No visible injury noted. Rectal: Maroon colored stool, no visualized external hemorrhoids or palpable internal hemorrhoid. Back: No CVA tenderness. Full range of motion noted. Skin: Skin warm and dry. Normal skin color. Normal skin turgor. No rashes/lesions/lacerations noted. Extremities: No lower extremity edema. Extremities exhibit normal range of motion. Extremities nontender. Neuro: Oriented X 3. Cranial nerve exam: II-XII are grossly intact No motor deficit. No sensory deficit. Reflexes normal. Course Course Course Narrative: GI bleed. Repeat abdominal exam show nontender abdomen, rectal exam showing a maroon-colored stool. CT abdomen and pelvis is unremarkable, patient hemodynamically stable however patient dropped half a unit of hemoglobin under repeat CBC and had 1 bloody bowel movement in the emergency department will admit for further GI evaluation. Medical Decision Making Medical Records Medical records reviewed: Yes I reviewed the patient's medical records. Lab Data Lab results reviewed: Yes I reviewed the patient's lab results. Result diagrams: 08/03/22 09:40 08/03/22 04:24 Labs: Lab Results 08/03/22 08/03/22 08/03/22 Range/Units 04:24 04:24 09:10 WBC 6.7 (4.8-10.8) X10*3/uL RBC 4.61 (4.20-5.50) X10*6/uL Hgb 13.3 (12.0-16.0) g/dl Hct 41.3 (37.0-47.0) % MCV 89.6 (80.0-98.0) fL MCH 28.9 (27.0-33.0) pg MCHC 32.2 (31.0-35.0) g/dl RDW 14.3 (11.0-16.0) % Plt Count 188 (160-400) X10*3/uL MPV 9.9 (9.4-12.3) fL Immature Gran % (Auto) (0.0-0.4) % Neut % (Auto) (45-73) % Lymph % (Auto) (20-40) % [place] % (Auto) (2-11) % Eos % (Auto) (0-4) % Baso % (Auto) (0-2) % Lymph # (Auto) (1.2-4.9) X10*3/uL [place] # (Auto) (0.1-1.2) X10*3/uL Eos # (Auto) (0.0-0.4) X10*3/uL Baso # (Auto) (0.0-0.2) X10*3/uL Abs Immat Gran (auto) (0.00-0.03) X10*3/uL Absolute Neuts (auto) (2.0-8.3) x10*3/uL Absolute Nucleated RBC 0.000 (0.0-0.012) X10*3/uL Nucleated RBC % (auto) 0.0 (0.0-0.2) /100WBC PT (10.0-13.1) SEC INR (0.9-1.1) APTT (26.0-36.4) SEC Sodium 143 (135-145) mmol/L Potassium 3.8 (3.3-5.1) mmol/L Chloride 107 (96-108) mmol/L Carbon Dioxide 24 (22-29) mmol/L Anion Gap 16 (12-20) BUN 25 H (9-16) mg/dL Creatinine 0.93 (0.5-1.4) mg/dL Estim Creat Clear Calc 58.4 Estimated GFR 59 Random Glucose 118 H (60-115) mg/dL Calcium 9.2 (8.4-10.2) mg/dL Total Bilirubin 0.3 (0.0-1.0) mg/dL Direct Bilirubin 0.2 (0.0-0.5) mg/dL AST 24 (5-31) U/L ALT 17 (0-31) U/L Alkaline Phosphatase 83 (39-117) U/L Total Protein 6.9 (6.5-8.0) g/dL Albumin 4.0 (3.5-5.0) g/dL Lipase 78 (8-78) U/L Stool Occult Blood POSITIVE (NEGATIVE) C. difficile Tox B Gene (Negative) Blood Type Antibody Screen 08/03/22 08/03/22 08/03/22 Range/Units 09:40 09:40 09:40 WBC 6.3 (4.8-10.8) X10*3/uL RBC 4.48 (4.20-5.50) X10*6/uL Hgb 12.8 (12.0-16.0) g/dl Hct 40.2 (37.0-47.0) % MCV 89.7 (80.0-98.0) fL MCH 28.6 (27.0-33.0) pg MCHC 31.8 (31.0-35.0) g/dl RDW 14.2 (11.0-16.0) % Plt Count 166 (160-400) X10*3/uL MPV 9.7 (9.4-12.3) fL Immature Gran % (Auto) 0.2 (0.0-0.4) % Neut % (Auto) 73.1 H (45-73) % Lymph % (Auto) 17.5 L (20-40) % [place] % (Auto) 7.4 (2-11) % Eos % (Auto) 1.3 (0-4) % Baso % (Auto) 0.5 (0-2) % Lymph # (Auto) 1.1 L (1.2-4.9) X10*3/uL [place] # (Auto) 0.5 (0.1-1.2) X10*3/uL Eos # (Auto) 0.1 (0.0-0.4) X10*3/uL Baso # (Auto) 0.0 (0.0-0.2) X10*3/uL Abs Immat Gran (auto) 0.01 (0.00-0.03) X10*3/uL Absolute Neuts (auto) 4.6 (2.0-8.3) x10*3/uL Absolute Nucleated RBC 0.000 (0.0-0.012) X10*3/uL Nucleated RBC % (auto) 0.0 (0.0-0.2) /100WBC PT 10.9 (10.0-13.1) SEC INR 1.0 (0.9-1.1) APTT 27.7 (26.0-36.4) SEC Sodium (135-145) mmol/L Potassium (3.3-5.1) mmol/L Chloride (96-108) mmol/L Carbon Dioxide (22-29) mmol/L Anion Gap (12-20) BUN (9-16) mg/dL Creatinine (0.5-1.4) mg/dL Estim Creat Clear Calc Estimated GFR Random Glucose (60-115) mg/dL Calcium (8.4-10.2) mg/dL Total Bilirubin (0.0-1.0) mg/dL Direct Bilirubin (0.0-0.5) mg/dL AST (5-31) U/L ALT (0-31) U/L Alkaline Phosphatase (39-117) U/L Total Protein (6.5-8.0) g/dL Albumin (3.5-5.0) g/dL Lipase (8-78) U/L Stool Occult Blood (NEGATIVE) C. difficile Tox B Gene NEGATIVE (Negative) Blood Type Antibody Screen 08/03/22 Range/Units 09:44 WBC (4.8-10.8) X10*3/uL RBC (4.20-5.50) X10*6/uL Hgb (12.0-16.0) g/dl Hct (37.0-47.0) % MCV (80.0-98.0) fL MCH (27.0-33.0) pg MCHC (31.0-35.0) g/dl RDW (11.0-16.0) % Plt Count (160-400) X10*3/uL MPV (9.4-12.3) fL Immature Gran % (Auto) (0.0-0.4) % Neut % (Auto) (45-73) % Lymph % (Auto) (20-40) % [place] % (Auto) (2-11) % Eos % (Auto) (0-4) % Baso % (Auto) (0-2) % Lymph # (Auto) (1.2-4.9) X10*3/uL [place] # (Auto) (0.1-1.2) X10*3/uL Eos # (Auto) (0.0-0.4) X10*3/uL Baso # (Auto) (0.0-0.2) X10*3/uL Abs Immat Gran (auto) (0.00-0.03) X10*3/uL Absolute Neuts (auto) (2.0-8.3) x10*3/uL Absolute Nucleated RBC (0.0-0.012) X10*3/uL Nucleated RBC % (auto) (0.0-0.2) /100WBC PT (10.0-13.1) SEC INR (0.9-1.1) APTT (26.0-36.4) SEC Sodium (135-145) mmol/L Potassium (3.3-5.1) mmol/L Chloride (96-108) mmol/L Carbon Dioxide (22-29) mmol/L Anion Gap (12-20) BUN (9-16) mg/dL Creatinine (0.5-1.4) mg/dL Estim Creat Clear Calc Estimated GFR Random Glucose (60-115) mg/dL Calcium (8.4-10.2) mg/dL Total Bilirubin (0.0-1.0) mg/dL Direct Bilirubin (0.0-0.5) mg/dL AST (5-31) U/L ALT (0-31) U/L Alkaline Phosphatase (39-117) U/L Total Protein (6.5-8.0) g/dL Albumin (3.5-5.0) g/dL Lipase (8-78) U/L Stool Occult Blood (NEGATIVE) C. difficile Tox B Gene (Negative) Blood Type A Negative Antibody Screen NEGATIVE Imaging Data Abdomen and pelvis CT: Attestation: I personally reviewed and interpreted this imaging study as follows: Radiologist's impression: Limited by lack of oral and intravenous contrast. ?No acute finding. Extensive sigmoid diverticulosis without evidence of diverticulitis. ? Discharge Plan Discharge Clinical Impression: Acute GI bleeding Patient Disposition: Admitted As Inpatient Prescriptions: No Action ezetimibe [Zetia] 10 mg tablet 10 mg PO DAILY Qty: 90 3RF metoprolol succinate 25 mg tablet extended release 24 hr 12.5 mg PO DAILY 90 Days Qty: 45 3RF atorvastatin 80 mg tablet 80 mg PO DAILY Qty: 90 3RF acetaminophen 325 mg Tablet 650 mg PO Q6H PRN (Reason: Pain, Mild (Pain Scale 1-3)) Qty: 30 0RF aspirin [Ecotrin Low Strength] 81 mg tablet,delayed release (DR/EC) 81 mg PO DAILY Qty: 30 0RF clopidogrel 75 mg tablet 75 mg PO DAILY Qty: 90 3RF nitroglycerin 0.4 mg tablet, sublingual 0.4 mg sublingual Q5M PRN (Reason: chest pain) Qty: 20 1RF Rx Instructions: do not exceed 3 doses per episode amlodipine 2.5 mg tablet 2.5 mg PO DAILY
[2022-08-03 09:24] VITALS: BP 169/72; PULSE 66; RESP 10; TEMP 36.8; O2SAT 99
[2022-08-03 09:47] LABS: MANUAL DIFF FLAG NO
[2022-08-03 09:49] LABS: Basophils Percent Auto 0.5 % (0-2); Eosinophils Absolute Auto 0.1 X10*3/uL (0.0-0.4); Eosinophils Percent Auto 1.3 % (0-4); Hematocrit 40.2 % (37.0-47.0); Hemoglobin 12.8 g/dl (12.0-16.0); Imm Gran Abs Auto 0.01 X10*3/uL (0.00-0.03); Imm Gran Pct Auto 0.2 % (0.0-0.4); Lymphocytes Absolute Auto 1.1 X10*3/uL (1.2-4.9); Lymphocytes Percent Auto 17.5 % (20-40); Mean Corpuscular HGB Conc 31.8 g/dl (31.0-35.0); Mean Corpuscular Hemoglobin 28.6 pg (27.0-33.0); Mean Corpuscular Volume 89.7 fL (80.0-98.0); Mean Platelet Volume 9.7 fL (9.4-12.3); Monocytes Absolute Auto 0.5 X10*3/uL (0.1-1.2); Monocytes Percent Auto 7.4 % (2-11); Neutrophils Absolute Auto 4.6 x10*3/uL (2.0-8.3); Neutrophils Percent Auto 73.1 % (45-73); Platelet Count 166 X10*3/uL (160-400); Red Blood Count 4.48 X10*6/uL (4.20-5.50); Red Cell Distribution Width 14.2 % (11.0-16.0); White Blood Count 6.3 X10*3/uL (4.8-10.8)
[2022-08-03 10:02] LABS: Prothrombin Time 10.9 SEC (10.0-13.1)
[2022-08-03 10:05] LABS: Partial Thromboplastin Time 27.7 SEC (26.0-36.4)
[2022-08-03 11:13] LABS: CDiff Gene PCR NEGATIVE (Negative)
[2022-08-03] MEDS: Metoprolol Tartrate 12.5 MG HALFTAB PO (11:41)
[2022-08-03 11:58] LABS: OBS Int Ctl Valid YES; OBS1 POSITIVE (NEGATIVE)
[2022-08-03 12:05] VITALS: BP 172/85; PULSE 67; RESP 11; TEMP 36.7; O2SAT 99
[2022-08-03] MEDS: amLODIPine Besylate 2.5 MG TABLET PO (12:18)
--- NOTE | 2022-08-03 13:16 | P.HPHOSP_ITS ---
History of Present Illness Date of Service: 08/03/22 Attending physician on admission: [facility] Chief Complaint: Acute GI bleed 77 year old female with history of htn, CAD remote history of stenting of the RCA and LAD last September on dual antiplatelet therapy, htn, hld and history of upper GI bleed from gastric ulcer presented to the ED this morning complaining of BRBPR that began around 3am. Reports she woke up for BM and noted pink discoloration in the stool. Has two more BMs with brighter red blots and another with dark red blood and clots. Initially had some abdominal cramping that has resolved. No n/v, fevers, chills. Reports stool is soft but no watery diarrhea. In ED. stool was heme positive. Initial H/H was 13.3/41.3 which fell to 12.8/40.[address] abd/pelvis showed extensive diverticulosis without evidence of diverticulitis. No acute findings. She currently has no complaints. Review of Systems Review of Systems: General: No fevers, malaise, unintentional weight loss Cardiovascular: No chest pain, palpitations, or leg edema Respiratory: No shortness of breath, wheezing, cough GI: +BRBPR. No abdominal pain, nausea, vomiting, diarrhea, constipation, melena Neuro: No headaches, weakness, paresthesias Skin: No rashes or lesions [facility] Medical History CAD (coronary artery disease) HTN (hypertension) Hyperlipidemia Non-ST elevation DE (NSTEMI) PVCs (premature ventricular contractions) Family History (Updated 08/03/22 @ 13:32 by JAVED Lange) Father CVD (cardiovascular disease) Mother CVD (cardiovascular disease) Sister Cancer Brother Pancreatic cancer Maternal Grandfather Diabetes Surgical History Hx of cardiac cath Hx of colonoscopy Hx of endoscopy Hx of knee surgery Stented coronary artery Social History Household Members: Spouse Housing: House Do you presently have visiting nurse or other home services: No Alcohol intake: never Patient Tobacco Use Status: Never used Tobacco Advance Directives: No Advance Directives Information Provided: Yes service: No Current occupational status: retired Meds Allergies Allergy/AdvReac Type Severity Reaction Status Date / Time Sulfa (Sulfonamide Allergy Unknown rash Verified 06/22/22 09:01 Antibiotics) lisinopril Allergy Angioedema Verified 06/22/22 09:01 Active Medications: Current Medications Pharmacy Consult (Consult Rx Perform Med Rec) 1 each MISCELLANE ONCE PRN PRN Reason: Consult order Home Medications Medication Instructions Recorded Confirmed Last Taken Type amlodipine 2.5 mg tablet 2.5 mg PO DAILY 01/13/22 08/03/22 Unknown History Physical Exam Vital Signs and Narrative: Vital Signs: Last Vital Signs Temp 98.0 F 08/03/22 12:05 Pulse 67 08/03/22 12:05 Resp 11 L 08/03/22 12:05 BP 172/85 H 08/03/22 12:05 Pulse Ox 99 08/03/22 12:05 O2 Del Method 08/03/22 12:05 BMI result Body Mass Index 34.6 Constitutional - Awake and Alert, No apparent distress Eyes - PERRLA, EOMI Cardiovascular - S1S2, RRR, 1+ edema BLE Respiratory - Normal lung expansion, Normal respiratory effort, No respiratory distress, CTA bilaterally Gastrointestinal - NT / ND; +BS; No rebound or guarding Extremities - no calf tenderness bilaterally, no swelling Musculoskeletal - Normal inspection, normal ROM Skin - Warm/Dry Neurological - Alert & oriented x3, CN II-XII in tact, 5/5 strength BUE and BLE Psychological - Appropriate affect Results Labs CBC and Chem 7: 08/03/22 09:40 08/03/22 04:24 Labs: Laboratory Results - last 24 hr 08/03/22 08/03/22 08/03/22 04:24 04:24 09:10 MCV 89.6 MCH 28.9 MCHC 32.2 RDW 14.3 Plt Count 188 MPV 9.9 Immature Gran % (Auto) Neut % (Auto) Lymph % (Auto) [place] % (Auto) Eos % (Auto) Baso % (Auto) Lymph # (Auto) [place] # (Auto) Eos # (Auto) Baso # (Auto) Abs Immat Gran (auto) Absolute Neuts (auto) Absolute Nucleated RBC 0.000 Nucleated RBC % (auto) 0.0 PT INR APTT Anion Gap 16 Estim Creat Clear Calc 58.4 Estimated GFR 59 Random Glucose 118 H Calcium 9.2 Total Bilirubin 0.3 Direct Bilirubin 0.2 AST 24 ALT 17 Alkaline Phosphatase 83 Total Protein 6.9 Albumin 4.0 Lipase 78 Stool Occult Blood POSITIVE C. difficile Tox B Gene Blood Type Antibody Screen 08/03/22 08/03/22 08/03/22 09:40 09:40 09:40 MCV 89.7 MCH 28.6 MCHC 31.8 RDW 14.2 Plt Count 166 MPV 9.7 Immature Gran % (Auto) 0.2 Neut % (Auto) 73.1 H Lymph % (Auto) 17.5 L [place] % (Auto) 7.4 Eos % (Auto) 1.3 Baso % (Auto) 0.5 Lymph # (Auto) 1.1 L [place] # (Auto) 0.5 Eos # (Auto) 0.1 Baso # (Auto) 0.0 Abs Immat Gran (auto) 0.01 Absolute Neuts (auto) 4.6 Absolute Nucleated RBC 0.000 Nucleated RBC % (auto) 0.0 PT 10.9 INR 1.0 APTT 27.7 Anion Gap Estim Creat Clear Calc Estimated GFR Random Glucose Calcium Total Bilirubin Direct Bilirubin AST ALT Alkaline Phosphatase Total Protein Albumin Lipase Stool Occult Blood C. difficile Tox B Gene NEGATIVE Blood Type Antibody Screen 08/03/22 09:44 MCV MCH MCHC RDW Plt Count MPV Immature Gran % (Auto) Neut % (Auto) Lymph % (Auto) [place] % (Auto) Eos % (Auto) Baso % (Auto) Lymph # (Auto) [place] # (Auto) Eos # (Auto) Baso # (Auto) Abs Immat Gran (auto) Absolute Neuts (auto) Absolute Nucleated RBC Nucleated RBC % (auto) PT INR APTT Anion Gap Estim Creat Clear Calc Estimated GFR Random Glucose Calcium Total Bilirubin Direct Bilirubin AST ALT Alkaline Phosphatase Total Protein Albumin Lipase Stool Occult Blood C. difficile Tox B Gene Blood Type A Negative Antibody Screen NEGATIVE Imaging Radiologist's Impressions: Impressions Abdomen/Pelvis CT 08/03/22 10:19 IMPRESSION: Limited by lack of oral and intravenous contrast. No acute finding. Extensive sigmoid diverticulosis without evidence of diverticulitis. Additional findings, as above. Assessment and Plan (1) Acute GI bleeding: Status: Acute Plan 77 year old female with history of htn, CAD remote history of stenting of the RCA and LAD last September on dual antiplatelet therapy, htn, hld and history of upper GI bleed from gastric ulcer to be admitted for acute lower GI bleed. 1- Acute lower GI bleed -H/H drop 1/2 unit in course of 5 hours -Pt with multiple episodes of BRBPR today with heme positive stool -Hold aspirin and plavix -Gi consult placed -NPO after midnight will likely need colonoscopy -Continue IVF -Trend H/H. Type & Screen completed. Transfusion not indicated at this time, no anemia -Abd CT negative for diverticulitis an colitis. 2-HTN- stable -Continue amlodipine and metoprolol -Low sodium diet 3-CAd with h/o MICHELLE to RCA and LAD- stable with anginal cp -Continue atorvastatin and zetia -Hold aspirin and plavix at this time 4-HLD -Continue zetia and atorvastatin DVT prophylaxis- mechanical and ambulation Full code Pt requires inpt stay of at least 2 midnights due to acute GI bleed requiring close monitoring of H/H and will need inpt colonoscopy to determine etiology and resolve bleed. Quality Stroke Does the patient have a stroke diagnosis?: No VTE Prior VTE?: No VTE Risk Level:: Medical - moderate - high VTE Device Contraindication: N/A - Device Ordered VTE Drug Contraindication: Treatment Not Tolerated
[2022-08-03 14:26] VITALS: BP 122/58; PULSE 51; RESP 15; TEMP 36.4; O2SAT 98
--- NOTE | 2022-08-03 14:42 | PHA.MEDREC ---
Pharmacy Consult ? Medication Reconciliation Pharmacy has completed the medication reconciliation.
--- NOTE | 2022-08-03 15:12 | PC.NURSE ---
Pt A&Ox4, LCA, abd soft, non tender, hyperactive BS at this time. Pt with BRB and clots in stool. No pain associated at this time. Pt does take a blood thinner which she did not take this morning. Pt OOB independently. Call crawley within reach. Will continue to monitor.
[2022-08-03 15:22] LABS: COVID-19 Test Negative (Negative)
--- NOTE | 2022-08-03 16:10 | PM.EVENT ---
Event Note Date of Service: 08/03/22 Event Note: GI consult dictated Colonoscopy tomorrow for further evaluation of gi bleeding. She is aware of risks and benefits and agrees to proceed.
[2022-08-03] MEDS: Ezetimibe 10 MG TABLET PO (16:53)
[2022-08-03] MEDS: 0.9 % Sodium Chloride Flush 3 ML SYRINGE IVFLUSH (16:53)
[2022-08-03] MEDS: 0.9 % Sodium Chloride 1,000 ML 100 ML IVCONT (16:56)
[2022-08-03] MEDS: PEG 3350/Na Sulf,Bicarb,Cl/KCL 4,000 ML SOLN.RECON 4000 ML PO (18:31)
[2022-08-03 19:22] LABS: Appearance Urine Clear; Color Urine Yellow; Glucose Urine UA Negative (Negative); Leukocyte Esterase Urine Small (1+) (Negative); Nitrite Urine Negative (Negative); PH 6.5 (5.0-9.0); UMIC TRIGGER UACC YES; Urine Blood Moderate (2+) (Negative); Urine Ketones Negative (Negative); Urine Protein Negative (Neg-Trace)
[2022-08-03 19:40] LABS: Bacteria Urine None Seen (None Seen); Hyaline Casts Urine 0-2 /LPF (0-2); RBC Urine >20 /HPF (0-2); Squamous Epithelial Cell Urine 0-2 /HPF (0-2); UACC Culture Trigger YES; WBC Urine 0-5 /HPF (0-5)
[2022-08-03 21:02] VITALS: BMI 34.4
[2022-08-03 21:17] VITALS: BP 143/67; PULSE 60; RESP 18; TEMP 35.7; O2SAT 98
[2022-08-03 23:48] VITALS: BP 132/70; PULSE 52; RESP 18; TEMP 36.1; O2SAT 99
[2022-08-04] MEDS: 0.9 % Sodium Chloride 1,000 ML 100 ML IVCONT (01:49)
[2022-08-04 03:35] VITALS: BP 152/66; PULSE 64; RESP 18; TEMP 36.1; O2SAT 99
[2022-08-04 06:14] LABS: MANUAL DIFF FLAG NO
[2022-08-04 06:24] LABS: Basophils Percent Auto 0.3 % (0-2); Eosinophils Absolute Auto 0.1 X10*3/uL (0.0-0.4); Eosinophils Percent Auto 1.1 % (0-4); Hematocrit 33.3 % (37.0-47.0); Hemoglobin 10.7 g/dl (12.0-16.0); Imm Gran Abs Auto 0.03 X10*3/uL (0.00-0.03); Imm Gran Pct Auto 0.4 % (0.0-0.4); Lymphocytes Absolute Auto 0.8 X10*3/uL (1.2-4.9); Lymphocytes Percent Auto 10.2 % (20-40); Mean Corpuscular HGB Conc 32.1 g/dl (31.0-35.0); Mean Corpuscular Volume 90.2 fL (80.0-98.0); Mean Platelet Volume 10.3 fL (9.4-12.3); Monocytes Absolute Auto 0.4 X10*3/uL (0.1-1.2); Monocytes Percent Auto 5.3 % (2-11); Neutrophils Absolute Auto 6.5 x10*3/uL (2.0-8.3); Neutrophils Percent Auto 82.7 % (45-73); Platelet Count 149 X10*3/uL (160-400); Red Blood Count 3.69 X10*6/uL (4.20-5.50); Red Cell Distribution Width 14.1 % (11.0-16.0); White Blood Count 7.9 X10*3/uL (4.8-10.8)
[2022-08-04 07:13] VITALS: BP 162/73; PULSE 78; RESP 18; TEMP 36.2; O2SAT 99
[2022-08-04] MEDS: Metoprolol Succinate ER 12.5 MG HALFTAB.ER.24H PO (07:38)
[2022-08-04] MEDS: amLODIPine Besylate 2.5 MG TABLET PO (07:38)
[2022-08-04] MEDS: Ezetimibe 10 MG TABLET PO (07:39)
[2022-08-04 11:42] VITALS: BP 149/74; PULSE 84; RESP 18; TEMP 36.6; O2SAT 98
--- NOTE | 2022-08-04 11:50 | HO.ANESPROP2 ---
HPI - Anesthesia Eval Consult details Narrative: 77yo female patient for colonoscopy PMFSH Active Problems Active Problems: All Active Problems (Updated 08/03/22 @ 12:12 by Arianna Lewis MD) Acute GI bleeding (Acute) HTN (hypertension) (Acute) CAD (coronary artery disease) (Acute)- denies recent chest pain. MICHELLE- last stents placed 09/04. Last dose of plavix and baby aspirin 08/02/22 Cellulitis (Acute) Angina of effort (Acute) PVCs (premature ventricular contractions) (Acute) Denies CAN Past Medical History Medical History CAD (coronary artery disease) HTN (hypertension) Hyperlipidemia Non-ST elevation [place] (NSTEMI) PVCs (premature ventricular contractions) Family History Family History Father CVD (cardiovascular disease) Mother CVD (cardiovascular disease) Sister Cancer Brother Pancreatic cancer Maternal Grandfather Diabetes Family history of problems with anesthesia: No Surgical History Surgical History Hx of cardiac cath Hx of colonoscopy Hx of endoscopy Hx of knee surgery Stented coronary artery History of Problems with Anesthesia: No Social History Social History Household Members: Spouse Housing: House Do you presently have visiting nurse or other home services: No Alcohol intake: never Patient Tobacco Use Status: Never used Tobacco Use of substances other than those prescribed or required for medical reasons: No Currently Displaying Signs/Symptoms of Drug Intoxication Withdrawal: No Have you been hit, kicked, punched, or otherwise hurt by someone within the past year? If so, by whom?: No Do you feel safe in your current relationship?: Yes Is there a partner from a previous relationship who is making you feel unsafe now?: No Are you made to feel afraid or neglected: No Are you DNR?: No Advance Directives: No Advance Directives Information Provided: Yes Do you have thoughts of harming others: None Do you have a plan to hurt others: No Plan Recently lost weight without trying: No How much weight loss: Not applicable Eating poorly because of decreased appetite: No Nutrition screen score: 0 Nutrition Risks: No Nutritional Risk Patient : No : No Poor oral hygiene: No service: No Current occupational status: retired Meds Allergies Allergy/AdvReac Type Severity Reaction Status Date / Time Sulfa (Sulfonamide Allergy Unknown rash Verified 06/22/22 09:01 Antibiotics) lisinopril Allergy Angioedema Verified 06/22/22 09:01 Active Medications: Current Medications Acetaminophen (Acetaminophen 325 Mg Tablet) 650 mg PO Q6H PRN PRN Reason: Pain, Mild (Pain Scale 1-3) Amlodipine Besylate (Amlodipine Besylate 2.5 Mg Tablet) 2.5 mg PO DAILY [facility]; Protocol Last Admin: 08/04/22 07:38 Dose: 2.5 mg Atorvastatin Calcium (Atorvastatin Calcium 80 Mg Tablet) 80 mg PO DAILY [facility] Last Admin: 08/04/22 07:39 Dose: Not Given Ezetimibe (Ezetimibe 10 Mg Tablet) 10 mg PO DAILY [facility] Last Admin: 08/04/22 07:39 Dose: 10 mg Sodium Chloride (Ns) 1,000 mls @ 100 mls/hr IVCONT .Q10H [facility] Last Admin: 08/04/22 01:49 Dose: 100 mls/hr Metoprolol Succinate (Metoprolol Succinate Er 12.5 Mg Halftab.Er.24h) 12.5 mg PO DAILY [facility]; Protocol Last Admin: 08/04/22 07:38 Dose: 12.5 mg Nitroglycerin (Nitroglycerin 0.4 Mg Tab.Subl) 0.4 mg SUBLINGUAL Q5M PRN PRN Reason: chest pain Ondansetron HCl (Ondansetron Hcl 4 Mg/2 Ml Vial) 4 mg IVPUSH Q8H PRN PRN Reason: Nausea and Vomiting Pharmacy Consult (Consult Rx Perform Med Rec) 1 each MISCELLANE ONCE PRN PRN Reason: Consult order Sodium Chloride (0.9 % Sodium Chloride Flush 3 Ml Syringe) 3 ml IVFLUSH QSHIFT [facility] Last Admin: 08/04/22 07:38 Dose: Not Given Home Medications Medication Instructions Recorded Confirmed Last Taken Type amlodipine 2.5 mg tablet 2.5 mg PO DAILY 01/13/22 08/03/22 08/03/22 History calcium carbonate 600 mg-vitamin 1 tab PO DAILY 08/03/22 08/03/22 08/02/22 History D3 5 mcg (200 unit) tablet flaxseed oil 1,000 mg capsule 1,000 mg PO DAILY 08/03/22 08/03/22 08/02/22 History multivitamin 1 tab PO DAILY 08/03/22 08/03/22 08/02/22 History Exam Exam Date and Time: August 04, 2022 1150 Height,Weight and Vital Signs: Height 5 ft 5 in Weight 94 kg Last Vital Signs Temp 98 F 08/04/22 11:42 Pulse 84 08/04/22 11:42 Resp 18 08/04/22 11:42 BP 149/74 H 08/04/22 11:42 Pulse Ox 98 08/04/22 11:42 O2 Del Method 08/04/22 11:42 Pertinent Lab Results Pertinent Lab Results: Laboratory Tests 08/03/22 08/03/22 08/03/22 04:24 04:24 09:10 WBC 6.7 RBC 4.61 Hgb 13.3 Hct 41.3 MCV 89.6 MCH 28.9 MCHC 32.2 RDW 14.3 Plt Count 188 MPV 9.9 Immature Gran % (Auto) Neut % (Auto) Lymph % (Auto) [place] % (Auto) Eos % (Auto) Baso % (Auto) Lymph # (Auto) [place] # (Auto) Eos # (Auto) Baso # (Auto) Abs Immat Gran (auto) Absolute Neuts (auto) Absolute Nucleated RBC 0.000 Nucleated RBC % (auto) 0.0 PT INR APTT Sodium 143 Potassium 3.8 Chloride 107 Carbon Dioxide 24 Anion Gap 16 BUN 25 H Creatinine 0.93 Estim Creat Clear Calc 58.4 Estimated GFR 59 Random Glucose 118 H Calcium 9.2 Total Bilirubin 0.3 Direct Bilirubin 0.2 AST 24 ALT 17 Alkaline Phosphatase 83 Total Protein 6.9 Albumin 4.0 Lipase 78 Urine Color Urine Appearance Urine pH Ur Specific [place] Urine Protein Urine Glucose (UA) Urine Ketones Urine Blood Urine Nitrite Ur Leukocyte Esterase Urine RBC Urine WBC Ur Squamous Epith Cells Urine Bacteria Hyaline Casts Stool Occult Blood POSITIVE C. difficile Tox B Gene COVID-19 ([facility]ERMAN) COVID-19 Clin Com Blood Type Antibody Screen 08/03/22 08/03/22 08/03/22 09:40 09:40 09:40 WBC 6.3 RBC 4.48 Hgb 12.8 Hct 40.2 MCV 89.7 MCH 28.6 MCHC 31.8 RDW 14.2 Plt Count 166 MPV 9.7 Immature Gran % (Auto) 0.2 Neut % (Auto) 73.1 H Lymph % (Auto) 17.5 L [place] % (Auto) 7.4 Eos % (Auto) 1.3 Baso % (Auto) 0.5 Lymph # (Auto) 1.1 L [place] # (Auto) 0.5 Eos # (Auto) 0.1 Baso # (Auto) 0.0 Abs Immat Gran (auto) 0.01 Absolute Neuts (auto) 4.6 Absolute Nucleated RBC 0.000 Nucleated RBC % (auto) 0.0 PT 10.9 INR 1.0 APTT 27.7 Sodium Potassium Chloride Carbon Dioxide Anion Gap BUN Creatinine Estim Creat Clear Calc Estimated GFR Random Glucose Calcium Total Bilirubin Direct Bilirubin AST ALT Alkaline Phosphatase Total Protein Albumin Lipase Urine Color Urine Appearance Urine pH Ur Specific [place] Urine Protein Urine Glucose (UA) Urine Ketones Urine Blood Urine Nitrite Ur Leukocyte Esterase Urine RBC Urine WBC Ur Squamous Epith Cells Urine Bacteria Hyaline Casts Stool Occult Blood C. difficile Tox B Gene NEGATIVE COVID-19 ([facility]ERMAN) COVID-Needl Com Blood Type Antibody Screen 08/03/22 08/03/22 08/03/22 09:44 14:57 19:11 WBC RBC Hgb Hct MCV MCH MCHC RDW Plt Count MPV Immature Gran % (Auto) Neut % (Auto) Lymph % (Auto) [place] % (Auto) Eos % (Auto) Baso % (Auto) Lymph # (Auto) [place] # (Auto) Eos # (Auto) Baso # (Auto) Abs Immat Gran (auto) Absolute Neuts (auto) Absolute Nucleated RBC Nucleated RBC % (auto) PT INR APTT Sodium Potassium Chloride Carbon Dioxide Anion Gap BUN Creatinine Estim Creat Clear Calc Estimated GFR Random Glucose Calcium Total Bilirubin Direct Bilirubin AST ALT Alkaline Phosphatase Total Protein Albumin Lipase Urine Color Yellow Urine Appearance Clear Urine pH 6.5 Ur Specific [place] 1.010 Urine Protein Negative Urine Glucose (UA) Negative Urine Ketones Negative Urine Blood Moderate (2+) H Urine Nitrite Negative Ur Leukocyte Esterase Small (1+) H Urine RBC >20 H Urine WBC 0-5 Ur Squamous Epith Cells 0-2 Urine Bacteria None Seen Hyaline Casts 0-2 Stool Occult Blood C. difficile Tox B Gene COVID-19 (SHERMAN) Negative COVID-Needl Com See Note Blood Type A Negative Antibody Screen NEGATIVE 08/04/22 05:41 WBC 7.9 RBC 3.69 L Hgb 10.7 L Hct 33.3 L MCV 90.2 MCH 29.0 MCHC 32.1 RDW 14.1 Plt Count 149 L MPV 10.3 Immature Gran % (Auto) 0.4 Neut % (Auto) 82.7 H Lymph % (Auto) 10.2 L [place] % (Auto) 5.3 Eos % (Auto) 1.1 Baso % (Auto) 0.3 Lymph # (Auto) 0.8 L [place] # (Auto) 0.4 Eos # (Auto) 0.1 Baso # (Auto) 0.0 Abs Immat Gran (auto) 0.03 Absolute Neuts (auto) 6.5 Absolute Nucleated RBC 0.000 Nucleated RBC % (auto) 0.0 PT INR APTT Sodium Potassium Chloride Carbon Dioxide Anion Gap BUN Creatinine Estim Creat Clear Calc Estimated GFR Random Glucose Calcium Total Bilirubin Direct Bilirubin AST ALT Alkaline Phosphatase Total Protein Albumin Lipase Urine Color Urine Appearance Urine pH Ur Specific [place] Urine Protein Urine Glucose (UA) Urine Ketones Urine Blood Urine Nitrite Ur Leukocyte Esterase Urine RBC Urine WBC Ur Squamous Epith Cells Urine Bacteria Hyaline Casts Stool Occult Blood C. difficile Tox B Gene COVID-19 ([facility]ERMAN) COVID-19 Clin Com Blood Type Antibody Screen Airway Mallampati Class: I TM Dist: >3cm Neck ROM: Full Denture: Upper and Lower Heart: RRR Lungs: CTAB Assessment and Plan Assessment Anesthesia Assessment: Anesthesia Plan Discussed and Chart Reviewed Final Anesthetic Review Family History of Problems with Anesthesia: No History of Problems with Anesthesia: No NPO: Yes ASA Class: III and Emergency Final Preanesthetic Review: No Changes in Pt Med Stat, Meds/Allgs Chart Reviewed, Consent Obtained/Reviewed and Anes Risks/Benef Reviewed Patient Risk: Intermediate Procedure Risk: Low Assessment/Block/Sedation in SS: Assess/Block/Sedation-SS Anesthetic Plan Anesthetic Plan: MAC: Disposition: Standard PACU and Inp. Admit - Standard Bed
--- NOTE | 2022-08-04 12:05 | PC.NURSE ---
yellow results after fleets
--- NOTE | 2022-08-04 12:52 | MHC.CM.PN ---
IMM 08/04/22 PATIENT ADMITTED WITH LOWER GI BLEED WITH PLAN FOR COLONOSCOPY TODAY. CM MET WITH PT WHO STATES WAS INDEPENDENT WITH ALL CARE, USES NO DME/HOME SERVICES AND LIVES WITH . PATIENT DOES NOT ANTICIPATE NEED FOR VNA BUT IS OPEN TO REFERRAL IF RECOMMENDED. PATIENT VERIFIES PCP IS DR. LANDY GOODWIN, HOWEVER SEES [facility] AT HIS PRACTICE. COVID VAX: PFIZER X3 , PATIENT REPORTS IS HCP AND COPY REQUESTED. DC PLAN; ANTICIPATE HOME , NO SERVICES, WILL TRANSPORT.
[2022-08-04 13:10] VITALS: BP 97/47; PULSE 57; RESP 16; TEMP 36.2; O2SAT 99
[2022-08-04 13:25] VITALS: BP 134/69; PULSE 58; RESP 16; TEMP 36.2; O2SAT 98
--- NOTE | 2022-08-04 13:32 | PM.OP ---
Brief Operative Note Date of Service: 08/04/22 Pre-op diagnosis: gi bleed Post-op diagnosis: same Procedure: colonoscopy Surgeon: Beny Montilla Anesthesia: MAC Was an Box Brander used for this Procedure?: No Estimated blood loss (mL): 0 Pathology: none sent Condition: stable Disposition: PACU
--- NOTE | 2022-08-04 13:34 | PM.EVENT ---
Event Note Date of Service: 08/04/22 Event Note: GI colonoscopy dictated moderate-severe diverticulosis in sigmoid no bleeding, mass or polyp ok to restart DAPT advance diet can d/c later today if stable
--- NOTE | 2022-08-04 15:23 | PM.DS ---
DS: Providers Provider Date of Service: 08/04/22 Date of admission: 08/03/22 13:07 Primary care physician: Ruddy Gray MD Consults: 08/03/22 13:12 Consult to Gastroenterology Routine Consulting Provider: Beny Montilla Reason for consultation: gi bleed DS: Diagnosis Discharge Diagnosis (1) Acute GI bleeding: Status: Acute DS: Summary Hospital Course Hospital Course: history of presenting illness Chief Complaint: Acute GI bleed 77 year old female with history of htn, CAD remote history of stenting of the RCA and LAD last September on dual antiplatelet therapy, htn, hld and history of upper GI bleed from gastric ulcer presented to the ED this morning complaining of BRBPR that began around 3am. Reports she woke up for BM and noted pink discoloration in the stool. Has two more BMs with brighter red blots and another with dark red blood and clots. Initially had some abdominal cramping that has resolved. No n/v, fevers, chills. Reports stool is soft but no watery diarrhea. In ED. stool was heme positive. Initial H/H was 13.3/41.3 which fell to 12.8/40.[address] abd/pelvis showed extensive diverticulosis without evidence of diverticulitis. No acute findings. She currently has no complaints. hospital course 77 year old female with history of htn, CAD remote history of stenting of the RCA and LAD last September on dual antiplatelet therapy, htn, hld and history of upper GI bleed from gastric ulcer to be admitted for acute lower GI bleed. 1- Acute lower GI bleed patient admitted to medical floor, aspirin and Plavix was held patient was kept NPO, CT abdomen showed no acute diverticulitis, no colitis, patient seen by Dr. Montilla from Gastroenterology and underwent colonoscopy that showed moderate to severe diverticulosis in sigmoid with no active bleeding, no mass or polyp noted, patient hematocrit dropped from 40.2-33.3, patient remains hemodynamically stable GI recommend to resume aspirin and Plavix due to prior history of upper GI bleed patient has been placed on Prilosec. It 2-HTN- blood pressure remains stable recommend to continue amlodipine and metoprolol 3-CAd with h/o MICHELLE to RCA and LAD- patient has been continued on all home medication including Lipitor, Zetia aspirin Plavix and metoprolol patient had no anginal symptoms. 4-HLD Recommend to Continue zetia and atorvastatin Time Spent with Patient Time attestation: Total time spent providing and/or coordinating discharge services: Discharge coordination time: Greater than 30 minutes Quality: Safe Use of Opioids Does Pt have an Active Cancer Diagnosis on the Problem List?: No Quality: Stroke Does the patient have a stroke diagnosis?: No Physical Exam Vital Signs: Vital Signs: Last Vital Signs Temp 97.1 F 08/04/22 13:25 Pulse 58 08/04/22 13:25 Resp 16 08/04/22 13:25 BP 134/69 08/04/22 13:25 Pulse Ox 98 08/04/22 13:25 O2 Del Method 08/04/22 13:25 BMI result Body Mass Index 34.4 Const: Other: General awake alert x3, no acute distress.? Neck supple no JVD. CVS? regular rate rhythm, Respiratory lungs clear to auscultation, no respiratory distress, no wheeze, no rhonchi. Gastrointestinal abdomen soft, nontender, bowel sounds audible,? no guarding , no rigidity. Extremities no? edema. Neuro nonfocal Skin no rash Psych appropriate affect DS: Data Data Completed and Pending Labs on day of discharge: Laboratory Results - last 24 hr 08/03/22 08/04/22 19:11 05:41 WBC 7.9 RBC 3.69 L Hgb 10.7 L Hct 33.3 L MCV 90.2 MCH 29.0 MCHC 32.1 RDW 14.1 Plt Count 149 L MPV 10.3 Immature Gran % (Auto) 0.4 Neut % (Auto) 82.7 H Lymph % (Auto) 10.2 L [place] % (Auto) 5.3 Eos % (Auto) 1.1 Baso % (Auto) 0.3 Lymph # (Auto) 0.8 L [place] # (Auto) 0.4 Eos # (Auto) 0.1 Baso # (Auto) 0.0 Abs Immat Gran (auto) 0.03 Absolute Neuts (auto) 6.5 Absolute Nucleated RBC 0.000 Nucleated RBC % (auto) 0.0 Urine Color Yellow Urine Appearance Clear Urine pH 6.5 Ur Specific [place] 1.010 Urine Protein Negative Urine Glucose (UA) Negative Urine Ketones Negative Urine Blood Moderate (2+) H Urine Nitrite Negative Ur Leukocyte Esterase Small (1+) H Urine RBC >20 H Urine WBC 0-5 Ur Squamous Epith Cells 0-2 Urine Bacteria None Seen Hyaline Casts 0-2 Preliminary micro results at discharge 08/03/22 19:11 Urine Culture - Preliminary Urine clean catch - Urine ho top Culture too young to evaluate. Discharge Plan Discharge Patient Disposition: Home, Self-Care Discharge Diagnosis: acute GI bleed Referrals: Ruddy Gray MD [Primary Care Provider] - 1 Week Discharge Medications: New omeprazole 20 mg capsule,delayed release(DR/EC) 20 mg PO DAILY Qty: 30 0RF Continued ezetimibe [Zetia] 10 mg tablet 10 mg PO DAILY Qty: 90 3RF metoprolol succinate 25 mg tablet extended release 24 hr 12.5 mg PO DAILY 90 Days Qty: 45 3RF atorvastatin 80 mg tablet 80 mg PO DAILY Qty: 90 3RF multivitamin Tablet 1 tab PO DAILY calcium carbonate-vitamin D3 600 mg-5 mcg (200 unit) Tablet 1 tab PO DAILY flaxseed oil 1,000 mg Capsule 1,000 mg PO DAILY Rx Instructions: administer with a meal aspirin [Ecotrin Low Strength] 81 mg tablet,delayed release (DR/EC) 81 mg PO DAILY Qty: 30 0RF clopidogrel 75 mg tablet 75 mg PO DAILY Qty: 90 3RF amlodipine 2.5 mg tablet 2.5 mg PO DAILY Discharge Orders: Discharge Order (Routine); Ordered 08/04/22 Ordered By: Lauren Barroso Diet: Advance to usual diet Activity on Discharge: As tolerated Stand Alone Forms: Patient Portal Discharge page Care Plan Goals: acute lower GI bleed resolved colonoscopy showed diverticulosis with no active bleeding recommend to resume aspirin and Plavix started on Prilosec due to prior history of upper GI bleed Health Concerns: resume all home medications as before Plan of Treatment: outpatient follow-up with primary care physician and Cardiology Assessment: as above
--- NOTE | 2022-08-04 16:23 | MHC.CM.PN ---
PT MEDICALLY CLEARED FOR D/C HOME, TO TRANSPORT.
--- NOTE | 2022-08-04 17:09 | CONS_ITS ---
DATE OF SERVICE: 08/03/2022 REASON FOR CONSULTATION: GI bleeding. 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 She states she was well until the morning of admission when she developed painless onset of bright red blood per rectum at 3 a.m. this morning. She had several episodes of red blood and clots and presented to the emergency department. There was some abdominal cramping, but the symptoms were mostly painless. She was evaluated in the emergency department with laboratory studies including CBC showing a hematocrit of 41.3, which dropped slightly to 40.2 later this morning. She reports the blood has become more burgundy in appearance. She does have history of previously undergoing colonoscopy, last in 2013, which showed a lipoma in the ascending colon, small internal hemorrhoids and multiple diverticula in the sigmoid and descending colon. She also reports history of peptic ulcer disease and has undergone upper GI endoscopy, most recently in January of 2019, for followup of a possible GI stromal tumor. She did have some healed prior peptic ulcer disease and what was thought to be a thickened fold. She has no complaints of upper GI discomfort. PAST MEDICAL HISTORY: 1. Coronary artery disease with history of stent placement in September, currently on Plavix and aspirin. 2. Hypertension. 3. Hyperlipidemia. 4. PVCs. 5. History of non-ST elevation NM. 6. Pancreatic cyst. 7. Peptic ulcer disease with history of upper GI bleed. MEDICATIONS: Current medication list is reviewed in the chart. ALLERGIES: SULFA AND LISINOPRIL. FAMILY HISTORY: This is reviewed with the patient and is noncontributory. SOCIAL HISTORY: There is no recurrent tobacco, alcohol or substance abuse. REVIEW OF SYSTEMS: SKIN: No pruritus. HEENT: Negative. CARDIOPULMONARY: She denies shortness of breath or chest pain. GASTROINTESTINAL: As above. GENITOURINARY: Negative. NEUROPSYCHIATRIC: Negative. PHYSICAL EXAMINATION: GENERAL: Shows a pleasant female, lying comfortably on a stretcher. VITAL SIGNS: Reviewed in the electronic medical record and are stable. SKIN: . HEENT: Shows no scleral icterus. NECK: Without lymphadenopathy or thyromegaly. LUNGS: Clear. HEART: Shows regular rate and rhythm, S1, S2. No murmur. ABDOMEN: Soft without focal masses or tenderness. Bowel sounds are present. No organomegaly is noted. EXTREMITIES: Do show some mild edema. LABORATORY DATA: Reviewed. IMPRESSION: Gastrointestinal bleeding. This appears most consistent with a lower gastrointestinal bleed, probably from diverticular disease exacerbated by dual antiplatelet treatment. I would recommend colonoscopy to rule out any other cause, although I doubt likelihood of a tumor or mass as well the colonoscopy will be helpful to determine if it is safe for her to go back on her anticoagulation. I discussed risks and benefits of the procedure with her. She understands these and agrees to proceed. Thank you for asking me to see her. I will follow her in the hospital with you. MD CARMINE Glaser/DANITZA / [id number]
--- NOTE | 2022-08-05 01:01 | OP_ITS ---
SURGEON: Beny Montilla MD INDICATIONS: Rectal bleeding. PREOPERATIVE DIAGNOSIS: POSTOPERATIVE DIAGNOSIS: PROCEDURE PERFORMED: Colonoscopy to the cecum on 08/04/22. ESTIMATED BLOOD LOSS: COMPLICATIONS: ANESTHESIA: Medications; monitored anesthesia care. ASSISTANTS: SPECIMENS: DESCRIPTION OF PROCEDURE: History and physical performed. The risks and benefits of the procedure were explained to the patient. Informed consent was obtained. The patient was placed in the left lateral decubitus position. A digital rectal exam was performed and was found to be normal. The Olympus pediatric videocolonoscope was introduced into the rectum and advanced to the cecum without difficulty. The cecum was identified by transillumination, palpation, and identification of ileocecal valve. Examination was performed. The scope was removed. She tolerated the procedure well and was returned to recovery area in stable condition. FINDINGS: The terminal ileum was not examined. The visualized colonic mucosa was normal. The quality of the prep was good. There was extensive diverticulosis involving the sigmoid with no site of bleeding identified. The remaining mucosa appeared within normal limits. No polyps were identified. Retroflexed examination showed small internal hemorrhoids. IMPRESSION: Diverticulosis. RECOMMENDATIONS: 1. Follow up as needed. 2. Repeat colonoscopy for screening purposes not recommended. 3. The patient may be restarted on her dual anti-platelet medication. MD CARMINE Glaser/DANITZA / [id number] MTDD
== END 2022-08-04 16:34 | disposition home or self-care (01) | DRG 379 ==
LOC: HO.ED 12:12 → HO.EDOVER 13:30 → HO.S3 19:40
PROVIDERS: Internal Medicine Gastroenterology; Admitting Provider Physician Assistant; Emergency Provider Emergency Medicine; PCP Internal Medicine; Visit Provider Hospitalist
PROC: 0DJD8ZZ Inspection of Lower Intestinal Tract, Via Natural or Artificial Opening Endoscopic (ICD-10-PCS; CPT 45378; principal; 2022-08-04 12:10)
DX: K57.31 Diverticulosis of large intestine without perforation or abscess with bleeding (principal); I25.10 Atherosclerotic heart disease of native coronary artery without angina pectoris; I10 Essential (primary) hypertension; I25.2 Old myocardial infarction; Z20.822 Contact with and (suspected) exposure to COVID-19; Z88.2 Allergy status to sulfonamides; Z88.8 Allergy status to other drugs, medicaments and biological substances; Z79.02 Long term (current) use of antithrombotics/antiplatelets; Z79.82 Long term (current) use of aspirin; Z79.899 Other long term (current) drug therapy; Z95.5 Presence of coronary angioplasty implant and graft
CPT/HCPCS: 45378; 36415; 74176; 80053; 81001; 82248; 82272; 83690; 85025; 85027; 85610; 85730; 86850; 86900; 86901; 87086; 87493; 87635; 99218; 99285

== ENCOUNTER 2022-10-29 07:54 | Outpatient (REF) | payer MEDICARE, SELFPAY ==
--- NOTE | ~2022-10-29 | MM_ITS ---
EXAMINATION: MM SCREENING DIGITAL BREAST TOMOSYNTHESIS, BILATERAL CLINICAL INFORMATION: Screening. Asymptomatic. The lifetime risk of breast cancer based on the Tyrer-Cuzick Model is 2.6%. COMPARISON: Mammography: October 22, 2021 and studies dating back to June 08, 2016 TECHNIQUE: Digital breast tomosynthesis is performed in both the craniocaudal and mediolateral oblique views along with computer-aided detection (CAD). Synthesized 2D images are generated from the tomosynthesis. FINDINGS: There are scattered areas of fibroglandular density (ACR BI-RADS breast composition Category b). There are no significant masses, abnormal calcifications, or other abnormalities. MM/MM tomosynthesis screening BI IMPRESSION: No significant changes from prior exam. ASSESSMENT: BI-RADS 1: Negative RECOMMENDATION: Routine annual mammography screening. This patient's information was entered into a reminder system with a target due date for their next mammogram.
== END 2022-10-29 07:55 | disposition home or self-care (01) ==
LOC: HO.MAMMO 07:54
PROVIDERS: PCP Internal Medicine; Visit Provider Internal Medicine
DX: Z12.31 Encounter for screening mammogram for malignant neoplasm of breast (principal)
CPT/HCPCS: 77063; 77067

== ENCOUNTER → 2023-03-11 08:21 | Outpatient (BNVA) | payer MEDICARE, SELFPAY | PROVIDERS: PCP Internal Medicine; Referring Provider Internal Medicine; Visit Provider Internal Medicine Cardiovascular Disease | DX: I49.3 Ventricular premature depolarization (principal); I25.10 Atherosclerotic heart disease of native coronary artery without angina pectoris; I10 Essential (primary) hypertension; Z95.5 Presence of coronary angioplasty implant and graft; Z98.890 Other specified postprocedural states; Z79.82 Long term (current) use of aspirin | CPT/HCPCS: 93005; 99212 ==

== ENCOUNTER → 2023-04-07 07:54 | Outpatient (REF) | payer MEDICARE, SELFPAY ==
--- NOTE | 2023-04-07 07:58 | HM_ITS ---
* Total monitoring time about 3 days. * Underlying rhythm is sinus. Average ventricular rate 54/Min. Range 39- 87/Min. * About 76% of the time, rate < 60/Min. * Frequent PVCs with a burden of 8.8%. Some couplets, triplets, bigeminy and trigeminy. 4 morphologies. * 3 runs noted. Longest 3 beats. * Very rare PACs. * No significant pauses or AV blocks. * Patient markers used twice, in association with bigeminy. * Symptoms of feeling foggy, fluttering correlates with bigeminy. MTDD
--- NOTE | 2023-04-07 07:58 | CA_ITS ---
Transthoracic Echocardiogram Amended Patient (Last, First, Middle): Devora Aguirre, Gender: Female Date of : 1945 Age: 77 Procedure Date: 04/07/2023 Procedure Type: Transthoracic Echocardiogram Location: OP Height: 165.1 cm Weight: 95.26 kg BSA: 2.02 m2 Heart Rate: 63 bpm BP: 132 / 68 mmHg Socket Puller: MARK Referring MD: Colin Vo MD Symptoms: I49.3 - Ventricular premature depolarization Study Quality: Adequate ECG Rhythm: Sinus Conclusions: - The left ventricular systolic function is normal. The visually estimated ejection fraction is between 65-70%. - No obvious valvular pathology seen on this study. Findings Left Ventricle Normal left ventricular cavity size. There is normal left ventricular wall thickness. The left ventricular systolic function is normal. The visually estimated ejection fraction is between 65-70%. E/E prime ratio is >15, consistent with elevated filling pressures. Evidence suggests grade I (mild) diastolic dysfunction. Focal hypertrophy of the basal septum. LV peak GLS 20.9%. Right Ventricle Normal right ventricular cavity size and systolic function. Atria Both atria are normal in size. Aortic Valve There is a normal trileaflet aortic valve. There is mild calcification of the aortic valve. There is no aortic valve stenosis. There is no aortic valve regurgitation. Mitral Valve There is mild mitral annular calcification. There is no mitral valve regurgitation. There is no mitral valve stenosis. Pulmonic Valve The pulmonic valve is likely normal. Tricuspid Valve Normal tricuspid valve structure. There is trace tricuspid valve regurgitation. There is no evidence of pulmonary hypertension. Great Vessels The asc aorta and aortic arch are normal in size. Venous The inferior vena cava is normal in size and collapses greater than 50% with inspiration. Pericardium/Pleural There is no evidence of pericardial effusion. Prior Study Comparison No significant change compared to prior study dated: 01/21/2022. Recommendations, Care & Conclusions No obvious valvular pathology seen on this study. Measurements 2D Linear Measurements IVSd: 0.82 0.6-0.9/0.6-1.0 cm LVIDd: 5.92 3.9-5.3/4.2-5.9 cm LVIDd Index: 2.93 2.4-3.2/2.2-3.1 cm/m2 LVIDs: 3.95 2.0-3.6 cm LVPWd: 0.61 0.7-1.1 cm LA Diam: 4.70 2.7-3.8/3.0-4.0 cm LAIDs Index: 2.33 1.5-2.3 cm/m2 LV Mass: 198.36 67-162/88-224 g LV Mass Index: 98.20 43-95/49-115 g/m2 LVOT Diam: 2.10 3.0+(-)1.3 cm 2D Volumes LA Vol: 27.50 2D Systolic Function EF 4C: 79.70 >55% EF 2C: 72.10 >55% EF BiP: 77.00 >55% Mitral Valve MV Pk E: 0.90 MV PK A: 0.77 MV Decel Time: 183.00 E/A: 1.20 E'Lateral: 5.22 E'Medial: 4.90 E/E' Med: 18.30 E/E' Lat: 17.20 PHT: 53.00 MVA PHT: 4.15 Decel [place]: 4.92 Aortic Valve AoV Pk Víctor: 1.46 AoV Pk Grad: 9.00 TIANA: 2.91 LVOT LVOT Pk Víctor: 1.17 LVOT Mn Víctor: 0.78 LVOT VTI: 0.27 LVOT Pk Grad: 5.00 LVOT Mn Grad: 3.00 LVOT Diam: 2.10 LVOT Area: 3.46 Diastolic Function MV Pk E: 0.90 MV Pk A: 0.77 E/A: 1.20 E'Medial: 4.90 E/E' Med: 18.30 E' Laterial: 5.22 E/E' Lat: 17.20 Right Ventricle TAPSE (mm): 25.20 TVS' Víctor: 14.90 Tricuspid Valve TR Pk Víctor: 2.66 TR Pk Grad: 28.00 RA Press: 3.00 RVSP: 31.00 Great Vessels Aorta Sinus of Valsalva: 3.10 2.0-3.5 cm Ao Asc: 3.30 2.1-3.4 cm Ao Arch: 3.00 Ao Desc: 2.80 Pulmonary Valve PV Pk Víctor: 1.01 Peak PV Grad: 4.00 Updated in Other Vendor System with Status of Final Rashel Velez MD electronically signed on 04/09/2023 10:53:40 AM with status of Final
== END ==
LOC: HO.CARD 07:54
PROVIDERS: PCP Internal Medicine; Visit Provider Internal Medicine Cardiovascular Disease
DX: I49.3 Ventricular premature depolarization (principal)
CPT/HCPCS: 93242; 93306; 93356

== ENCOUNTER 2023-04-26 07:30 | Day surgery (SDC) | payer MEDICARE, SELFPAY ==
[2023-04-21 09:37] VITALS: BMI 36.0
--- NOTE | 2023-04-23 08:01 | MHC.SHP ---
Pre-Procedural Eval Section A Date of Service: 04/23/23 The patient is an INPATIENT: No Changes since office visit: No Cold of Flu in the past 2 weeks, No New Medical Problems, No Changes in Medication and No Patient answered all questions The History & Physical has been completed within 30 days and I have reviewed it.: Yes Section B Chief Complaint: Age-related nuclear cataract, right eye Allergies: Allergies Allergy/AdvReac Type Severity Reaction Status Date / Time lisinopril Allergy Severe Angioedema Verified 04/20/23 16:47 Sulfa (Sulfonamide Allergy Intermediate rash, Verified 04/20/23 16:47 Antibiotics) itching around mouth Plan Diagnosis/Plan: Unchanged I have reviewed the history and physical and performed a pertinent physical examination on my patient. No changes have occurred unless specified. Time Spent With Patient Time: Total time managing care of this patient today ____ minutes.
--- NOTE | 2023-04-23 09:06 | P.CONAN_ITS ---
Documented by User: Norma Vale NP 04/23/23 09:06 HPI - Anesthesia Eval Consult details Narrative: 77yo F for Right Cataract Multifocal with IOL Insertion PCP cleared No previous cataract on record [facility] Active Problems Active Problems: All Active Problems (Updated 04/20/23 @ 17:05 by Lou Sánchez, RN) Angina of effort (Acute) Cellulitis (Acute) HTN (hypertension) (Acute) CAD (coronary artery disease) (Acute) PVCs (premature ventricular contractions) (Acute) Past Medical History Medical History (Updated 04/20/23 @ 17:05 by Lou Sánchez, RN) Anxiety Arthritis CAD (coronary artery disease) Cataracts, bilateral DJD (degenerative joint disease) Full dentures History of blood transfusion History of GI bleed HTN (hypertension) Hx of squamous cell carcinoma of skin Hyperlipidemia Low back pain Non-ST elevation [place] (NSTEMI) PVCs (premature ventricular contractions) Family History Family History Father CVD (cardiovascular disease) Mother CVD (cardiovascular disease) Sister Cancer Brother Pancreatic cancer Maternal Grandfather Diabetes Family history of problems with anesthesia: No Surgical History Surgical History (Updated 04/20/23 @ 17:02 by Lou Sánchez RN) History of heart artery stent Hx of cardiac cath Hx of colonoscopy Hx of endoscopy Hx of knee surgery Stented coronary artery History of Problems with Anesthesia: No Social History Social History (Updated 04/21/23 @ 09:47 by Lou Sánchez RN) Household Members: Spouse Housing: House Are you a primary home health care provider to a significant other at home: No Do you presently have visiting nurse or other home services: No Alcohol intake: never Patient Tobacco Use Status: Never used Tobacco Use of substances other than those prescribed or required for medical reasons: No Have you been hit, kicked, punched, or otherwise hurt by someone within the past year? If so, by whom?: No Are you DNR?: No Advance Directives: No Advance Directives Information Provided: Yes Advance Directives on File: No Recently lost weight without trying: No Nutrition Risks: Surgical patient >75years service: No Current occupational status: retired Meds Allergies Allergy/AdvReac Type Severity Reaction Status Date / Time lisinopril Allergy Severe Angioedema Verified 04/20/23 16:47 Sulfa (Sulfonamide Allergy Intermediate rash, Verified 04/20/23 16:47 Antibiotics) itching around mouth Home Medications Medication Instructions Recorded Confirmed Last Taken Type calcium carbonate 600 mg-vitamin 1 tab PO DAILY 08/03/22 04/20/23 08/02/22 History D3 5 mcg (200 unit) tablet flaxseed oil 1,000 mg capsule 1,000 mg PO DAILY 08/03/22 04/20/23 08/02/22 History multivitamin 1 tab PO DAILY 08/03/22 04/20/23 08/02/22 History furosemide 20 mg tablet (Lasix) 20 mg PO DAILY PRN Edema 04/20/23 04/20/23 Unknown History Exam Exam Date and Time: April 23, 2023905 Height,Weight and Vital Signs: Height 5 ft 3 in Weight 92.079 kg Assessment and Plan Assessment Anesthesia Assessment: Chart Reviewed Final Anesthetic Review Family History of Problems with Anesthesia: No History of Problems with Anesthesia: No Documented by User: Elizabeth Martin MD 04/26/23 09:23 [facility] Past Medical History Medical History (Updated 04/20/23 @ 17:05 by Lou Sánchez, RN) Anxiety Arthritis CAD (coronary artery disease) Cataracts, bilateral DJD (degenerative joint disease) Full dentures History of blood transfusion History of GI bleed HTN (hypertension) Hx of squamous cell carcinoma of skin Hyperlipidemia Low back pain Non-ST elevation [place] (NSTEMI) PVCs (premature ventricular contractions) Family History Family History Father CVD (cardiovascular disease) Mother CVD (cardiovascular disease) Sister Cancer Brother Pancreatic cancer Maternal Grandfather Diabetes Surgical History Surgical History (Updated 04/20/23 @ 17:02 by Lou Sánchez, RN) History of heart artery stent Hx of cardiac cath Hx of colonoscopy Hx of endoscopy Hx of knee surgery Stented coronary artery Social History Social History (Updated 04/21/23 @ 09:47 by Lou Sánchez RN) Household Members: Spouse Housing: House Are you a primary home health care provider to a significant other at home: No Do you presently have visiting nurse or other home services: No Alcohol intake: never Patient Tobacco Use Status: Never used Tobacco Use of substances other than those prescribed or required for medical reasons: No Have you been hit, kicked, punched, or otherwise hurt by someone within the past year? If so, by whom?: No Are you DNR?: No Advance Directives: No Advance Directives Information Provided: Yes Advance Directives on File: No Recently lost weight without trying: No Nutrition Risks: Surgical patient >75years service: No Current occupational status: retired Meds Allergies Allergy/AdvReac Type Severity Reaction Status Date / Time lisinopril Allergy Severe Angioedema Verified 04/20/23 16:47 Sulfa (Sulfonamide Allergy Intermediate rash, Verified 04/20/23 16:47 Antibiotics) itching around mouth Home Medications Medication Instructions Recorded Confirmed Last Taken Type calcium carbonate 600 mg-vitamin 1 tab PO DAILY 08/03/22 04/20/23 08/02/22 History D3 5 mcg (200 unit) tablet flaxseed oil 1,000 mg capsule 1,000 mg PO DAILY 08/03/22 04/20/23 08/02/22 History multivitamin 1 tab PO DAILY 08/03/22 04/20/23 08/02/22 History furosemide 20 mg tablet (Lasix) 20 mg PO DAILY PRN Edema 04/20/23 04/20/23 Unknown History Exam Airway Mallampati Class: II TM Dist: >3cm Denture: Upper and Lower Heart: rrr Lungs: cta bl Assessment and Plan Assessment Anesthesia Assessment: Anesthesia Plan Discussed Final Anesthetic Review NPO: Yes ASA Class: III Final Preanesthetic Review: No Changes in Pt Med Stat, Meds/Allgs Chart Reviewed and Consent Obtained/Reviewed Patient Risk: Intermediate Procedure Risk: Intermediate Anesthetic Plan Anesthetic Plan: MAC: Disposition: Standard PACU
[2023-04-26 08:29] VITALS: BP 148/66; PULSE 60; RESP 16; TEMP 36.2; O2SAT 98
[2023-04-26] MEDS: Tetracaine HCl/PF 0.5% Oph Sol 4 ML DROPS 1 DROP EYE-RIGHT (08:33)
[2023-04-26] MEDS: Lactated Ringers 500 ML 50 ML IV (08:34)
[2023-04-26] MEDS: Cyclopentolate 1 % Ophth Sol 2 ML DRPBTL 1 DROP EYE-RIGHT ×3 (08:34→08:46)
[2023-04-26] MEDS: Tropicamide 1 % Ophth Sol 3 ML BTL 1 DROP EYE-RIGHT ×3 (08:35→08:47)
[2023-04-26] MEDS: Ketorolac Tromethamine 0.5% Op 5 ML DROPS 1 DROP EYE-RIGHT ×3 (08:36→08:48)
[2023-04-26] MEDS: Phenylephrine HCL 2.5% Oph SoL 2 ML BOTTLE 1 DROP EYE-RIGHT ×3 (08:39→08:49)
--- NOTE | 2023-04-26 09:34 | HO.PNOPHT ---
Ophthalmology Procedure Procedure Date of Service: 04/26/23 Ophthalmology Viscoelastic: Healsteph Duet Dual Pack Pro Ophthalmology Lenses: TECNIS [id number] (15.5) Procedure Notes: PREOPERATIVE DIAGNOSIS: Decreased visual acuity right eye secondary to cataract POSTOPERATIVE DIAGNOSIS: Same PROCEDURE: Right cataract extraction with intraocular lens insertion SURGEON: Cedrick Cervantes M.D. ANESTHESIA: Topical/MAC ESTIMATED BLOOD LOSS: None COMPLICATIONS: None After obtaining informed consent, the patient was brought to the operating room suite and placed in the supine position. After adequate sedation per anesthesia, topical drops of Tetracaine were given to the right eye. The eye was then prepped and draped in the usual sterile fashion. The operating room microscope was then positioned over the operative eye and a lid speculum placed. A paracentesis was created. Viscoelastic was then instilled into the anterior chamber. A three plane incision was then created temporally, utilizing a 2.85 mm keratome. Capsulotomy forceps were then utilized to create a circular tear capsulotomy. Hydrodissection and hydrodelineation were carried out until adequate mobilization of the nucleus occurred. Phacoemulsification was then utilized to remove the dense central nucleus followed by removal of the cortical material utilizing the automated aspiration irrigation unit. Viscoelastic was instilled into the posterior capsular bag followed by placement of a posterior chamber intraocular lens without difficulty. The residual Viscoelastic was then removed utilizing the automated IA machine. The wound was checked and found to be watertight. The patient tolerated the procedure well and the lid speculum was removed. Intracameral injection of Vigamox 0.1 mL followed by a subtenon injection of Kenalog-40 0.2 mL were administered. The patient will be seen in the a.m.
[2023-04-26 09:55] VITALS: BP 140/58; PULSE 64; RESP 16; TEMP 36.1; O2SAT 98
== END 2023-04-26 10:09 | disposition home or self-care (01) ==
PROVIDERS: PCP Internal Medicine; Visit Provider Ophthalmology
PROC: (CPT 66985; principal; 2023-04-26 10:20)
DX: H25.11 Age-related nuclear cataract, right eye (principal); H54.7 Unspecified visual loss; Z83.511 Family history of glaucoma; D31.92 Benign neoplasm of unspecified part of left eye; H18.413 Arcus senilis, bilateral; I10 Essential (primary) hypertension; I25.10 Atherosclerotic heart disease of native coronary artery without angina pectoris; I25.2 Old myocardial infarction; Z95.5 Presence of coronary angioplasty implant and graft; Z79.82 Long term (current) use of aspirin; Z79.899 Other long term (current) drug therapy; Z85.828 Personal history of other malignant neoplasm of skin; Z88.2 Allergy status to sulfonamides; Z88.8 Allergy status to other drugs, medicaments and biological substances
CPT/HCPCS: 66984; J2250; J3010; J3301; V2632

== ENCOUNTER 2023-05-10 08:04 | Day surgery (SDC) | payer MEDICARE, SELFPAY ==
[2023-04-21 09:48] VITALS: BMI 36.0
--- NOTE | 2023-05-06 14:53 | P.CONAN_ITS ---
Documented by User: Norma Vale NP 05/06/23 14:54 HPI - Anesthesia Eval Consult details Narrative: 77yo for Left Cataract Multifocal with IOL Insertion PCP cleared Right eye 04/26/23 with MAC: midaz 1, fent 25 PMFSH Active Problems Active Problems: All Active Problems (Updated 04/20/23 @ 17:05 by Lou Sánchez, RN) Angina of effort (Acute) Cellulitis (Acute) HTN (hypertension) (Acute) CAD (coronary artery disease) (Acute) PVCs (premature ventricular contractions) (Acute) Past Medical History Medical History (Updated 04/20/23 @ 17:05 by Lou Sánchez, RN) Anxiety Arthritis CAD (coronary artery disease) Cataracts, bilateral DJD (degenerative joint disease) Full dentures History of blood transfusion History of GI bleed HTN (hypertension) Hx of squamous cell carcinoma of skin Hyperlipidemia Low back pain Non-ST elevation [place] (NSTEMI) PVCs (premature ventricular contractions) Family History Family History Father CVD (cardiovascular disease) Mother CVD (cardiovascular disease) Sister Cancer Brother Pancreatic cancer Maternal Grandfather Diabetes Family history of problems with anesthesia: No Surgical History Surgical History (Updated 04/20/23 @ 17:02 by Lou Sánchez RN) History of heart artery stent Hx of cardiac cath Hx of colonoscopy Hx of endoscopy Hx of knee surgery Stented coronary artery History of Problems with Anesthesia: No Social History Social History (Updated 04/21/23 @ 09:47 by Lou Sánchez RN) Household Members: Spouse Housing: House Are you a primary lawn care professional to a significant other at home: No Do you presently have visiting nurse or other home services: No Alcohol intake: never Patient Tobacco Use Status: Never used Tobacco Use of substances other than those prescribed or required for medical reasons: No Have you been hit, kicked, punched, or otherwise hurt by someone within the past year? If so, by whom?: No Are you DNR?: No Advance Directives: No Advance Directives Information Provided: Yes Advance Directives on File: No Recently lost weight without trying: No service: No Current occupational status: retired Meds Allergies Allergy/AdvReac Type Severity Reaction Status Date / Time lisinopril Allergy Severe Angioedema Verified 04/20/23 16:47 Sulfa (Sulfonamide Allergy Intermediate rash, Verified 04/20/23 16:47 Antibiotics) itching around mouth Home Medications Medication Instructions Recorded Confirmed Last Taken Type calcium carbonate 600 mg-vitamin 1 tab PO DAILY 08/03/22 04/20/23 08/02/22 History D3 5 mcg (200 unit) tablet flaxseed oil 1,000 mg capsule 1,000 mg PO DAILY 08/03/22 04/20/23 08/02/22 History multivitamin 1 tab PO DAILY 08/03/22 04/20/23 08/02/22 History furosemide 20 mg tablet (Lasix) 20 mg PO DAILY PRN Edema 04/20/23 04/20/23 Unknown History Exam Exam Date and Time: May 06, 2023 1453 Height,Weight and Vital Signs: Height 5 ft 3 in Weight 92.079 kg Assessment and Plan Assessment Anesthesia Assessment: Chart Reviewed Final Anesthetic Review Family History of Problems with Anesthesia: No History of Problems with Anesthesia: No Documented by User: Alexys Bourgeois MD 05/10/23 08:54 [facility] Past Medical History Medical History (Updated 04/20/23 @ 17:05 by Lou Sánchez, RN) Anxiety Arthritis CAD (coronary artery disease) Cataracts, bilateral DJD (degenerative joint disease) Full dentures History of blood transfusion History of GI bleed HTN (hypertension) Hx of squamous cell carcinoma of skin Hyperlipidemia Low back pain Non-ST elevation [place] (NSTEMI) PVCs (premature ventricular contractions) Family History Family History Father CVD (cardiovascular disease) Mother CVD (cardiovascular disease) Sister Cancer Brother Pancreatic cancer Maternal Grandfather Diabetes Surgical History Surgical History (Updated 04/20/23 @ 17:02 by Lou Sánchez, RN) History of heart artery stent Hx of cardiac cath Hx of colonoscopy Hx of endoscopy Hx of knee surgery Stented coronary artery Social History Social History (Updated 04/21/23 @ 09:47 by Lou Sánchez RN) Household Members: Spouse Housing: House Are you a primary lawn care professional to a significant other at home: No Do you presently have visiting nurse or other home services: No Alcohol intake: never Patient Tobacco Use Status: Never used Tobacco Use of substances other than those prescribed or required for medical reasons: No Have you been hit, kicked, punched, or otherwise hurt by someone within the past year? If so, by whom?: No Are you DNR?: No Advance Directives: No Advance Directives Information Provided: Yes Advance Directives on File: No Recently lost weight without trying: No service: No Current occupational status: retired Meds Allergies Allergy/AdvReac Type Severity Reaction Status Date / Time lisinopril Allergy Severe Angioedema Verified 04/20/23 16:47 Sulfa (Sulfonamide Allergy Intermediate rash, Verified 04/20/23 16:47 Antibiotics) itching around mouth Home Medications Medication Instructions Recorded Confirmed Last Taken Type calcium carbonate 600 mg-vitamin 1 tab PO DAILY 08/03/22 04/20/23 08/02/22 History D3 5 mcg (200 unit) tablet flaxseed oil 1,000 mg capsule 1,000 mg PO DAILY 08/03/22 04/20/23 08/02/22 History multivitamin 1 tab PO DAILY 08/03/22 04/20/23 08/02/22 History furosemide 20 mg tablet (Lasix) 20 mg PO DAILY PRN Edema 04/20/23 04/20/23 Unknown History Exam Airway Mallampati Class: II TM Dist: >3cm Neck ROM: Full Denture: Upper and Lower Assessment and Plan Assessment Anesthesia Assessment: Anesthesia Plan Discussed Final Anesthetic Review NPO: Yes ASA Class: III Final Preanesthetic Review: No Changes in Pt Med Stat, Meds/Allgs Chart Reviewed, Consent Obtained/Reviewed and Anes Risks/Benef Reviewed Patient Risk: Low Procedure Risk: Low Anesthetic Plan Anesthetic Plan: MAC: Disposition: Standard PACU
--- NOTE | 2023-05-07 08:34 | MHC.SHP ---
Pre-Procedural Eval Section A Date of Service: 05/07/23 The patient is an INPATIENT: No Changes since office visit: No Cold of Flu in the past 2 weeks, No New Medical Problems, No Changes in Medication and No Patient answered all questions The History & Physical has been completed within 30 days and I have reviewed it.: Yes Section B Chief Complaint: Age-related nuclear cataract, left eye Allergies: Allergies Allergy/AdvReac Type Severity Reaction Status Date / Time lisinopril Allergy Severe Angioedema Verified 04/20/23 16:47 Sulfa (Sulfonamide Allergy Intermediate rash, Verified 04/20/23 16:47 Antibiotics) itching around mouth Plan Diagnosis/Plan: Unchanged I have reviewed the history and physical and performed a pertinent physical examination on my patient. No changes have occurred unless specified. Time Spent With Patient Time: Total time managing care of this patient today ____ minutes.
[2023-05-10 08:31] VITALS: BP 189/75; PULSE 59; RESP 20; TEMP 36.6; O2SAT 98
[2023-05-10] MEDS: Cyclopentolate 1 % Ophth Sol 2 ML DRPBTL 1 DROP EYE-LEFT ×3 (08:42→08:44)
[2023-05-10] MEDS: Ketorolac Tromethamine 0.5% Op 5 ML DROPS 1 DROP EYE-LEFT ×3 (08:42→08:44)
[2023-05-10] MEDS: Lactated Ringers 500 ML 50 ML IV (08:42)
[2023-05-10] MEDS: Phenylephrine HCL 2.5% Oph SoL 2 ML BOTTLE 1 DROP EYE-LEFT ×3 (08:42→08:44)
[2023-05-10] MEDS: Tetracaine HCl/PF 0.5% Oph Sol 4 ML DROPS 1 DROP EYE-LEFT (08:42)
[2023-05-10] MEDS: Tropicamide 1 % Ophth Sol 3 ML BTL 1 DROP EYE-LEFT ×3 (08:43→08:44)
[2023-05-10 08:47] VITALS: BP 166/64
--- NOTE | 2023-05-10 09:43 | HO.PNOPHT ---
Ophthalmology Procedure Procedure Date of Service: 05/10/23 Ophthalmology Viscoelastic: Healsteph Duet Dual Pack Pro Ophthalmology Lenses: TECNIS [id number] (12.5) Procedure Notes: PREOPERATIVE DIAGNOSIS: Decreased visual acuity left eye secondary to cataract POSTOPERATIVE DIAGNOSIS: Same PROCEDURE: Left cataract extraction with intraocular lens insertion SURGEON: Cedrick Cervantes M.D. ANESTHESIA: Topical/MAC ESTIMATED BLOOD LOSS: None COMPLICATIONS: None After obtaining informed consent, the patient was brought to the operation room suite and placed in the supine position. After adequate sedation per anesthesia, topical drops of Tetracaine were given to the left eye. The eye was then prepped and draped in the usual sterile fashion. The operating room microscope was then positioned over the operative eye and a lid speculum placed. A paracentesis was created. Viscoelastic was then instilled into the anterior chamber. A three plane incision was then created temporally, utilizing a 2.85 mm keratome. Capsulotomy forceps were then utilized to create a circular tear capsulotomy. Hydrodissection and hydrodelineation were carried out until adequate mobilization of the nucleus occurred. Phacoemulsification was then utilized to remove the dense central nucleus followed by removal of the cortical material utilizing the automated aspiration irrigation unit. Viscoat elastic was instilled into the posterior capsular bag followed by placement of a posterior chamber intraocular lens without difficulty. The residual Viscoat elastic was then removed utilizing the automated IA machine. The wound was check and found to be watertight. The patient tolerated the procedure well and the lid speculum was removed. Intracameral injection of Vigamox 0.1 mL followed by a subtenon injection of Kenalog-40 0.2 mL were administered. The patient will be seen in the a.m.
[2023-05-10 10:17] VITALS: BP 144/57; PULSE 52; RESP 18; TEMP 36.2; O2SAT 100
== END 2023-05-10 10:22 | disposition home or self-care (01) ==
PROVIDERS: PCP Internal Medicine; Visit Provider Ophthalmology
PROC: (CPT 66985; principal; 2023-05-10 10:00)
DX: H25.12 Age-related nuclear cataract, left eye (principal); H54.7 Unspecified visual loss; H18.413 Arcus senilis, bilateral; H43.399 Other vitreous opacities, unspecified eye; D31.92 Benign neoplasm of unspecified part of left eye; I10 Essential (primary) hypertension; E78.5 Hyperlipidemia, unspecified; I25.10 Atherosclerotic heart disease of native coronary artery without angina pectoris; Z95.5 Presence of coronary angioplasty implant and graft; I25.2 Old myocardial infarction; Z79.82 Long term (current) use of aspirin; Z79.899 Other long term (current) drug therapy; Z88.2 Allergy status to sulfonamides; Z88.8 Allergy status to other drugs, medicaments and biological substances
CPT/HCPCS: 66984; J2250; J3301; V2632

== ENCOUNTER 2023-09-13 08:23 | Outpatient (AMB) | payer MEDICARE, SELFPAY ==
--- NOTE | 2023-09-13 08:28 | MHC.OFFVIS ---
Intake Vital Signs 09/13/23 08:29 Height 5 ft 5 in Weight 187 lb 6.287 oz BMI 31.2 BP 120/70 Blood Pressure Location Lt brachial Position Sitting Pulse 62 Intake Visit Reasons: 6 mth f/up Intake Note: 6 month follow-up feeling good Feather Stitcher Required: No Supervisor Rice Milling: Supervisor Rice Milling Present Accompanied by: Spouse Allergies lisinopril Allergy (Severe, Verified 04/20/23 16:47) Angioedema Sulfa (Sulfonamide Antibiotics) Allergy (Intermediate, Verified 04/20/23 16:47) rash, itching around mouth Medication List - Last Reconciled 09/13/23 by Colin Vo MD amlodipine 5 mg PO DAILY 90 days aspirin (Ecotrin Low Strength) 81 mg PO DAILY atorvastatin 80 mg PO DAILY calcium carbonate-vitamin D3 600 mg-5 mcg (200 unit) 1 tab PO DAILY ezetimibe 10 mg PO DAILY flaxseed oil 1,000 mg PO DAILY furosemide (Lasix) 20 mg PO DAILY PRN metoprolol succinate ER 12.5 mg (1/2 x 25 mg) PO DAILY 90 days multivitamin 1 tab PO DAILY HPI HPI Comments History of Present Illness Details Devora comes for follow-up. She has been doing very well from cardiac perspective. She says the symptoms of palpitation of significantly improved on low-dose metoprolol therapy. However recently when she was on her feet for long period time and long car ride she had significant leg swelling. She took some extra Lasix per then were some compression stockings and elevating her leg in leg swelling has improved significantly. She denies any orthopnea, PND, worsening shortness of breath. No exertional chest pain. No lightheadedness, syncope. No prolonged irregular heartbeat or palpitations. Tolerating her medications well. [facility] Medical History Low back pain Arthritis DJD (degenerative joint disease) Full dentures Hx of squamous cell carcinoma of skin History of GI bleed History of blood transfusion Anxiety Cataracts, bilateral Non-ST elevation [place] (NSTEMI) CAD (coronary artery disease) HTN (hypertension) Hyperlipidemia PVCs (premature ventricular contractions) Surgical History History of heart artery stent Stented coronary artery Hx of knee surgery Hx of endoscopy Hx of cardiac cath Hx of colonoscopy Family History Father CVD (cardiovascular disease) Mother CVD (cardiovascular disease) Sister Cancer Brother Pancreatic cancer Maternal Grandfather Diabetes Social History Household Members: Spouse Housing: House Are you a primary care director rn to a significant other at home: No Do you presently have visiting nurse or other home services: No Alcohol intake: never Patient Tobacco Use Status: Never used Tobacco service: No Current occupational status: retired Review of Systems Const Denies chills, Denies fatigue, Denies fever(s), Denies frequent falls, Denies weakness, Denies weight gain and Denies weight loss ENT Denies dizziness Card Denies chest pain, Denies leg edema, Denies lightheadedness, Denies palpitations, Denies dyspnea, Denies dyspnea on exertion, Denies orthopnea and Denies other (loss of consciousness) Resp Denies cough, Denies dyspnea and Denies dyspnea on exertion GI Denies hematochezia and Denies change in stool character Musc Denies abnormal gait, Denies muscle weakness, Denies numbness, Denies radiating pain into limb and Denies tingling Neuro Denies abnormal gait, Denies dizziness, Denies frequent falls, Denies numbness, Denies tingling and Denies weakness Endo Denies fatigue and Denies palpitations Physical Exam Vital Signs: Last Vital Signs Pulse 62 09/13/23 08:29 BP 120/70 09/13/23 08:29 BMI result Body Mass Index 31.2 Const General: cooperative, comfortable, no acute distress, alert and awake Nutritional Appearance: obese Orientation/consciousness: patient oriented x3 Limitations: no limitations Neck Neck: Yes trachea midline, Yes supple and Yes no JVD Carotids: no bruits Resp Effort & Inspection: normal respiratory effort Auscultation: clear to auscultation bilaterally Cardio Jugular venous distension: no JVD Palpation: normal PMI Rate: bradycardic Rhythm: abnormal rhythm with ectopic beats Heart sounds: S1 normal heart sound present, S2 normal heart sound present, no click, no gallops, no murmurs and no rubs Bruits: carotid bruit on the right GI Auscultation: normal bowel sounds Skin General skin exam: no rashes or lesions noted Neuro General: patient oriented x3 and no focal motor deficits Extrem General: Yes no clubbing, cyanosis or edema and Yes other (Wound on the left puckett with mild redness) Psych Appearance: grossly normal Assessment & Plan Assessment & Plan (1) CAD (coronary artery disease): Code(s): I25.10 - Atherosclerotic heart disease of [place] coronary artery without angina pectoris Plan: CAD status post prior PCI with no recurrent symptoms of angina on current dual antianginal therapy. Continue low-dose aspirin therapy for life. Continue high-intensity statin therapy with target goal LDL less than 70 mg/dL. Continue current antihypertensives. Blood pressure is well optimized. Advised to call me with worsening symptoms. (2) PVCs (premature ventricular contractions): Code(s): I49.3 - Ventricular premature depolarization Plan: Symptoms of PVCs which has significantly improved with low-dose metoprolol therapy. Continue the same. Continue to avoid stimulants. Advised to call me with worsening symptoms. (3) Leg edema: Code(s): R60.0 - Localized edema Plan: Bilateral leg edema which is probably likely related to venous insufficiency and amlodipine therapy. Advised to continue mechanical means of treating this. Compression stocking should be pursued. Continue leg elevation intermittently throughout the day. Avoid using diuretic regimen. Will follow up in the clinic in 1 year's time, sooner p.r.n.. Thank you for allowing me to partake in her care Coding Level of Care Code Est Pt Level 4 (04393) Diagnoses CAD (coronary artery disease) I25.10 PVCs (premature ventricular contractions) I49.3 Leg edema R60.0
[2023-09-13 08:29] VITALS: BP 120/70; PULSE 62; BMI 31.2
== END 2023-09-13 08:56 | disposition home or self-care (01) ==
PROVIDERS: Visit Provider Internal Medicine Cardiovascular Disease
DX: I25.10 Atherosclerotic heart disease of native coronary artery without angina pectoris (principal); I49.3 Ventricular premature depolarization; R60.0 Localized edema
CPT/HCPCS: 99214

== ENCOUNTER → 2023-09-13 08:23 | Outpatient (BNVA) | payer MEDICARE, SELFPAY | PROVIDERS: Visit Provider Internal Medicine Cardiovascular Disease | DX: I25.10 Atherosclerotic heart disease of native coronary artery without angina pectoris (principal); I10 Essential (primary) hypertension; I49.3 Ventricular premature depolarization; I21.4 Non-ST elevation (NSTEMI) myocardial infarction; R60.0 Localized edema; Z98.890 Other specified postprocedural states; Z95.5 Presence of coronary angioplasty implant and graft | CPT/HCPCS: 99212 ==

== ENCOUNTER 2023-11-04 08:16 | Outpatient (REF) | payer MEDICARE, SELFPAY | END 2023-11-04 08:17 | disposition home or self-care (01) | LOC: HO.MAMMO 08:16 | PROVIDERS: PCP Internal Medicine; Visit Provider Internal Medicine | DX: Z12.31 Encounter for screening mammogram for malignant neoplasm of breast (principal) | CPT/HCPCS: 77063; 77067 ==

== ENCOUNTER → 2023-11-04 08:30 | Outpatient (BNV) | payer MEDICARE, SELFPAY | PROVIDERS: PCP Internal Medicine; Visit Provider Radiology Diagnostic Radiology | DX: Z12.31 Encounter for screening mammogram for malignant neoplasm of breast (principal) | CPT/HCPCS: 77063; 77067 ==

== ENCOUNTER 2024-09-29 08:22 | Outpatient (AMB) | payer MEDICARE, SELFPAY ==
--- NOTE | 2024-09-29 08:24 | A.OFFVIS_ITS ---
Vital Signs 09/29/24 08:25 Height 5 ft 5 in Weight 194 lb 0.108 oz BMI 32.3 BP 120/76 Blood Pressure Location Lt brachial Position Sitting Pulse 48 L Intake Visit Reasons: 1 yr fup Intake Note: 1 year follow-up with ekg feeling good Cigar Head Stringer Required: No Allergies lisinopril Allergy (Severe, Verified 04/20/23 16:47) Angioedema Sulfa (Sulfonamide Antibiotics) Allergy (Intermediate, Verified 04/20/23 16:47) rash, itching around mouth Medication List - Last Reconciled 09/29/24 by Colin Vo MD amlodipine 5 mg PO DAILY 90 days aspirin (Ecotrin Low Strength) 81 mg PO DAILY atorvastatin 80 mg PO DAILY calcium carbonate-vitamin D3 600 mg-5 mcg (200 unit) 1 tab PO DAILY ezetimibe 10 mg PO DAILY flaxseed oil 1,000 mg PO DAILY metoprolol succinate ER 12.5 mg (1/2 x 25 mg) PO DAILY 90 days multivitamin 1 tab PO DAILY HPI Comments Details: Devora comes for follow-up, accompanied by her . Overall she has been doing well. Denies any significant cardiac symptoms. She says symptoms of PVCs have also significantly improved most likely due to management of stress. She has no exertional chest pain. Takes all her medications. No recent blood work in the system. Blood work was done through her PCP's office in February. Blood pressures been well controlled. No heart failure symptoms. No prolonged palpitation irregular heartbeat. [facility] Medical History Low back pain Arthritis DJD (degenerative joint disease) Full dentures Hx of squamous cell carcinoma of skin History of GI bleed History of blood transfusion Anxiety Cataracts, bilateral Non-ST elevation [place] (NSTEMI) CAD (coronary artery disease) HTN (hypertension) Hyperlipidemia PVCs (premature ventricular contractions) Surgical History History of heart artery stent Stented coronary artery Hx of knee surgery Hx of endoscopy Hx of cardiac cath Hx of colonoscopy Family History Father CVD (cardiovascular disease) Mother CVD (cardiovascular disease) Sister Cancer Brother Pancreatic cancer Maternal Grandfather Diabetes Social History Household Members: Spouse Housing: House Are you a primary career technical education teacher to a significant other at home: No Do you presently have visiting nurse or other home services: No Alcohol intake: never Patient Tobacco Use Status: Never used Tobacco service: No Current occupational status: retired Review of Systems Const Denies chills, Denies fatigue, Denies fever(s), Denies frequent falls, Denies weakness, Denies weight gain and Denies weight loss ENT Denies dizziness Card Denies chest pain, Denies leg edema, Denies lightheadedness, Denies palpitations, Denies dyspnea, Denies dyspnea on exertion, Denies orthopnea and Denies other (loss of consciousness) Resp Denies cough, Denies dyspnea and Denies dyspnea on exertion GI Denies hematochezia and Denies change in stool character Musc Denies abnormal gait, Denies muscle weakness, Denies numbness, Denies radiating pain into limb and Denies tingling Neuro Denies abnormal gait, Denies dizziness, Denies frequent falls, Denies numbness, Denies tingling and Denies weakness Endo Denies fatigue and Denies palpitations Physical Exam Vital Signs: Last Vital Signs Pulse 48 L 09/29/24 08:25 BP 120/76 09/29/24 08:25 BMI result Body Mass Index 32.3 Const General: cooperative, comfortable, no acute distress, alert and awake Nutritional Appearance: obese Orientation/consciousness: patient oriented x3 Limitations: no limitations Neck Neck: Yes trachea midline, Yes supple and Yes no JVD Carotids: no bruits Resp Effort & Inspection: normal respiratory effort Auscultation: clear to auscultation bilaterally Cardio Jugular venous distension: no JVD Palpation: normal PMI Rate: bradycardic Rhythm: abnormal rhythm with ectopic beats Heart sounds: S1 normal heart sound present, S2 normal heart sound present, no click, no gallops, no murmurs and no rubs Bruits: carotid bruit on the right GI Auscultation: normal bowel sounds Skin General skin exam: no rashes or lesions noted Neuro General: patient oriented x3 and no focal motor deficits Extrem General: Yes no clubbing, cyanosis or edema and Yes other (Wound on the left puckett with mild redness) Psych Appearance: grossly normal Office Procedures EKG Details: EKG shows sinus bradycardia otherwise normal EKG [id number], Complete Assessment & Plan Assessment & Plan (1) CAD (coronary artery disease): Code(s): I25.10 - Atherosclerotic heart disease of [place] coronary artery without angina pectoris Category: Medical Plan: Stable CAD with prior PCI. Currently having no symptoms of angina with effort. Good functional quality at current time. Recommend to continue to follow medical therapy. Continue low-dose aspirin therapy for life. Continue high- intensity statin therapy with ezetimibe. Target goal LDL closer to 60 mg/dL. Continue aggressive blood pressure control which is currently well optimized. Encouraged to continue heart healthy lifestyle. Continue regular physical activity and gradual weight loss. She understands management well. Advised to call me with any new symptoms. (2) PVCs (premature ventricular contractions): Code(s): I49.3 - Ventricular premature depolarization Category: Medical Plan: Prior history of PVCs in cluster probably related to stressful situation. Currently not having any symptoms. Discussed about benign nature of PVCs. Would not change her medical therapy given her baseline bradycardia, see below. Avoidance of stimulants was discussed. Continue stress mitigation strategies. No other workup is indicated at this point time. (3) Sinus bradycardia: Code(s): R00.1 - Bradycardia, unspecified Category: Medical Plan: Sinus bradycardia which is suggestive of sinoatrial [place] dysfunction on currently low-dose metoprolol therapy for cardiac protection and to reduce incidence of PVCs. Can not uptitrate metoprolol therapy. Currently not having any symptoms and not indicated for pacing therapy. Will follow up in the clinic in 1 year's time, sooner p.r.n.. Thank you for allowing me to partake in her care Coding Level of Care Code Est Pt Level 4 (52192) Complex EM visit Add On G2211 Diagnoses CAD (coronary artery disease) I25.10 PVCs (premature ventricular contractions) I49.3 Sinus bradycardia R00.1 CPT Codes EKG - CPT: 11325-[id number], Complete ([id number])
[2024-09-29 08:25] VITALS: BP 120/76; PULSE 48; BMI 32.3
== END 2024-09-29 08:58 | disposition home or self-care (01) ==
PROVIDERS: PCP Internal Medicine; Visit Provider Internal Medicine Cardiovascular Disease
DX: I25.10 Atherosclerotic heart disease of native coronary artery without angina pectoris (principal); I49.3 Ventricular premature depolarization; R00.1 Bradycardia, unspecified
CPT/HCPCS: 93010; 99214; G2211

== ENCOUNTER → 2024-09-29 08:22 | Outpatient (BNVA) | payer MEDICARE, SELFPAY | PROVIDERS: PCP Internal Medicine; Visit Provider Internal Medicine Cardiovascular Disease | DX: I25.10 Atherosclerotic heart disease of native coronary artery without angina pectoris (principal); I49.3 Ventricular premature depolarization; R00.1 Bradycardia, unspecified | CPT/HCPCS: 93005; 99212 ==

== ENCOUNTER 2024-11-09 09:14 | Outpatient (REF) | payer MEDICARE, SELFPAY ==
--- OUTSIDE RECORDS SUMMARY | 2024-11-09 09:16 | XMS_ITS | Continuity of Care Document ---
Author Organization [facility] Miko marysol Address [address] [place] [address] [address] [place] [address]- Care Team Providers Care Administrative Assistant Receptionist Name Role Phone Maria Isabel Navarro MD Primary Care Physician [phone] Encounter [facility] Date(s): 10/02/24 - 10/09/24 [facility] [address] [place] [id number] Attending Physician: John Sy MD Referring Physician: Maria Isabel Navarro MD Encounter Type: Office Visit Allergies, Adverse Reactions, Alerts Substance Criticality Severity Reaction Reaction Severity Status sulfamethoxazole-trim ethoprim 1 Eruption Active lisinopril 2 angioedema Active sulfa topicals Unknown Activ e Bactrim rash/mouth itching A ctive EPINEPHrine palpitations Activ e 1Outside Source Comment: rash 2had angioedema 08/2021 Medications acetaminophen 325 mg oral tablet 650 mg, 2, tablet, By Mouth, Every 6 hours, Refills 0, Maintenance, 03/21/17 8:16:15 AM EDT Start Date: 03/21/17 Status: Ordered Repeat number: 1 acetaminophen 650 mg oral tablet, extended release 650 Unknown, Oral, 0 Refill(s), Take 650 mg by mouth nightly at bedtime as needed for pain (specific location in comments)., 0 Refills, 03/24/24 9:29:00 AM EDT, Partial fill upon patient request if the prescription is for a schedule II opioid drug. Start Date: 03/24/24 Status: Ordered Repeat number: 1 amLODIPine 5 mg oral tablet 1 tablet = 5 mg, By Mouth, Daily, # 30 tablet, 0 Refills, Maintenance, 02/14/24 9:39:00 AM EDT, Tablet, Partial fill upon patient request if the prescription is for a schedule II opioid drug. Start Date: 02/14/24 Status: Ordered Quantity: 30.0 Unit: tablet Repeat number: 1 aspirin 81 mg oral tablet 1 tablet = 81 mg, By Mouth, Daily, 0 Refills, Maintenance, 10/03/18 8:43:47 AM EST Start Date: 10/03/18 Status: Ordered Repeat number: 1 atorvastatin 80 mg oral tablet 1 tablet = 80 mg, By Mouth, Daily at bedtime, # 30 tablet, 0 Refills, Maintenance, 05/25/14 2:42:58 PM EDT, Tablet, [facility] 3 Start Date: 05/25/14 Stop Date: 06/24/14 Status: Ordered Quantity: 30.0 Unit: tablet Repeat number: 1 ezetimibe 10 mg oral tablet 1 tablet = 10 mg, By Mouth, Daily, 0 Refills, Maintenance, 03/16/24 8:51:00 AM EDT, Partial fill uponpatient request if the prescription is for a schedule II opioid drug. Start Date: 03/16/24 Status: Ordered Repeat number: 1 ibuprofen 400 mg oral tablet 19 tablet, 0 Refill(s), Refills 0, 03/24/24 9:29:00 AM EDT, Partial fill upon patient request if theprescription is for a schedule II opioid drug. Start Date: 03/24/24 Status: Ordered Repeat number: 1 metoprolol 25 mg oral tablet 12.5 mg, 0.5, tablet, By Mouth, Daily, Refills 0, Maintenance, 01/18/17 7:53:26 AM EST Start Date: 01/18/17 Status: Ordered Repeat number: 1 Metoprolol Succinate ER 25 mg oral tablet, extended release 45 tablet, 0 Refill(s), 0 Refills, 03/24/24 9:29:00 AM EDT, Partial fill upon patient request if theprescription is for a schedule II opioid drug. Start Date: 03/24/24 Status: Ordered Repeat number: 1 Multivitamin Daily, 0 Refills, Maintenance, 03/16/24 10:31:00 AM EDT, Partial fill upon patient request if the prescription is for a schedule II opioid drug. Start Date: 03/16/24 Status: Ordered Repeat number: 1 Vitamin D3 1000 intl units oral capsule 1 capsule = 1,000 International_Units, By Mouth, Daily, 0 Refills, Maintenance, 10/03/18 8:45:27 AMEST Start Date: 10/03/18 Status: Ordered Repeat number: 1 Problem List Condition Confirmation Course Effective Dates Status H ealth Status Informant Angioedema 1 Confirmed Active Constipation Confirmed Active Pancreatic cyst Confirmed Active Diastolic dysfunction Confirmed Active Dyslipidemia Confirmed Active Edentulous Confirmed Active GERD (gastroesophageal reflux disease) Confirmed Active Liver hemangioma Confirmed Active History of GI bleed/gastric ulcer Confirmed Active Hypertension Confirmed Active Obese class I Confirmed Active Old AR 2020 2 Confirmed Active Osteoarthritis Confirmed Active Osteoarthritis of hip Confirmed 03/19/17 Active History of erosive pustular dermatitis Confirmed Active SCC (squamous cell carcinoma), scalp 3 Confirmed Active Stented coronary artery-RCA LAD 2020 Confirmed Active Tinnitus Confirmed Active 26329, treated with epinephrine which contributed to NSTEMI and 2013 3Had Mohs followed by XRT, 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 Vital Signs Most recent to oldest [Reference Range]: 1 Height 161.0 cm (10/02/24 8:54 AM) Weight 89.4 kg (10/02/24 8:54 AM) Body Mass Index [18.5-24.99 kg/m2] 34.49 kg/m2 *>HHI* (10/02/24 8:54 AM) Weight Obtained Via Standing scale (10/02/24 8:54 AM) Social History Social History Type Response Smoking Status Never smoker entered on: 01/23/16 Sex Sex Representation Female (finding) Implantable Device List Procedure Provider Procedure Date Device Type Site Skin Graft Full Thickness Face John Sy MD 03/17/24 Unknown Head Device Identifier Serial Number Lot or Batch Number Manufacturing Date Expiration Date Distinct Identification Code MRI Safety Implantable Status Assigning Authority [id number] Unknown [id number] Unknown 01/12/26 Unknown Unknown Active GS1 Patient Care team information Care Team Personnel Name: Maria Isabel Navarro MD Position: [facility] Outreach Member Role: PCP Address: [address] [facility] [address] Telecom: Name: Aaron Yousif RN Position: S RN Member Role: Primary Care Nurse Name: Maurice Hooker RN Position: [facility] RN Member Role: Primary Care Nurse Name: Rhiannon Serrano RN Position: [facility] SN RN Member Role: Primary Care Nurse Name: Reyna Guzman RN Position: [facility] RN Member Role: Primary Care Nurse Name: Aixa Pfeiffer CNM Position: [facility] Investment Advisor Member Role: Primary Care Nurse Address: [address] [place] [id number] Telecom: Name: Christiano Couch RN Position: [facility] RN Member Role: Primary Care Nurse Name: Gregoria Soliz RN Position: [facility] OB RN Member Role: Primary Care Nurse Name: Ratna Acevedo RN Position: [facility] TONY Office Staff Member Role: Primary Care Nurse Name: Genie Loza RN Position: [facility] RN Member Role: Primary Care Nurse Care Team Related Persons Name: MONTSE CLEVELAND Insurance Providers Guarantor name: DYLON MEGHA Health Plan Information #: 1 Payer: [facility] Member Number: [id number] Policy Number: NA Group Number: [id number] Health Plan Information #: 2 Payer: [facility] [employer] ADV Member Number: [id number] Policy Number: NA Group Number: [id number]
--- OUTSIDE RECORDS SUMMARY | 2024-11-09 09:16 | XMS_ITS | Patient Health Record ---
Author Organization [facility] Address [address] [place] [address] Care Team Providers Care Looping Machine Operator Name Role Phone Ruddy Gray MD Primary Care Provider Beny Álvarez Jr Unavailable REASON FOR REFERRAL No Information SOCIAL HISTORY Sex Assigned At : Social History Observation Description Sex Assigned At Unknown PROBLEMS Problem Type ICD Code Onset Dates Problem Status W/U Status Risk SNOMED Code Notes Problem Diverticulosis of colon (K57.30) Active confirmed Diverticulosi s of colon (250887139) PLAN OF TREATMENT No Information Insurance Providers Payer Name Payer Address Payer Phone Subscriber Number Group Number Insured Name Patient Relationship to Insured Coverage Start Date Coverage End Date [facility] [address] [address] [place] [phone] [id number] DYLON CLEVELAND Self - patient is the insured
--- OUTSIDE RECORDS SUMMARY | 2024-11-09 09:16 | XMS_ITS | Continuity of Care Document ---
Author Organization [facility] Miko marysol Address [address] [place] [address] [address] [place] [address]- Care Team Providers Care Cigarette Package Examiner Name Role Phone Maria Isabel Navarro MD Primary Care Physician [phone] [place] [facility] [place] 10/30/24 - 11/06/24 [facility] [address] [place] [id number]- Attending Physician: John Sy MD Referring Physician: [...] Refills, Maintenance, 05/25/14 2:42:58 PM EDT, Tablet, [facility] 3 Start Date: 05/25/14 Stop Date: [...] Active Obese class I Confirmed Active [place] 2020 2 Confirmed Active Osteoarthritis Confirmed Active Osteoarthritis of hip Confirmed 03/19/17 Active History of erosive pustular dermatitis Confirmed Active SCC (squamous cell carcinoma), scalp 3 Confirmed Active Stented coronary artery-RCA LAD 2020 Confirmed Active Tinnitus Confirmed Active 12527, treated with epinephrine which contributed to NSTEMI and 2013 3Had Mohs followed by XRT, 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 Vital Signs Most recent to oldest [Reference Range]: 1 Height 161.0 cm (10/30/24 8:45 AM) Weight 86.5 kg (10/30/24 8:45 AM) Body Mass Index [18.5-24.99 kg/m2] 33.37 kg/m2 *>HHI* (10/30/24 8:45 AM) Social History Social History Type Response Smoking Status Never smoker entered on: 01/23/16 Sex Sex Representation Female (finding) Implantable Device List Procedure Provider Procedure Date Device Type Site Skin Graft Full Thickness Face John Sy MD 03/17/24 Unknown Head Device Identifier Serial Number Lot or Batch Number Manufacturing Date Expiration Date Distinct Identification Code MRI Safety Implantable Status Assigning Authority [id number] Unknown [id number] Unknown 01/12/26 Unknown Unknown Active GS1 Patient Care team information Care Team Personnel Name: Maria Isabel Navarro MD Position: [facility] Outreach Member Role: PCP Address: [address] [place] [address] [address] [facility] [place] [address]- Telecom: Name: Aaron Yousif RN Position: [facility] RN Member Role: Primary Care Nurse Name: Maurice Hooker RN Position: [facility] RN Member Role: Primary Care Nurse Name: Rhiannon Serrano RN Position: [facility] SN RN Member Role: Primary Care Nurse Name: Reyna Guzman RN Position: [facility] RN Member Role: Primary Care Nurse Name: Christiano Couch RN Position: [facility] RN Member Role: Primary Care Nurse Name: Gregoria Soliz RN Position: [facility] OB RN Member Role: Primary Care Nurse Name: Ratna Acevedo RN Position: [facility] TONY Office Staff Member Role: Primary Care Nurse Name: Aixa Whipple CNM Position: [facility] Clinical Nurse Manager Member Role: Primary Care Nurse Address: [address] [place] [id number] Telecom: Name: Genie Loza RN Position: [facility] RN Member Role: Primary Care Nurse Care Team Related Persons Name: MONTSE CLEVELAND Insurance Providers Guarantor name: DYLON CLEVELAND Health Plan Information #: 1 [facility] Member Number: [id number] Policy Number: NA Group Number: [id number] Health Plan Information #: 2 Payer: [facility] [employer] ADV Member Number: [id number] Policy Number: NA Group Number: [id number]
== END 2024-11-09 09:15 | disposition home or self-care (01) ==
LOC: HO.MAMMO 09:14
PROVIDERS: PCP Family Medicine; Referring Provider Family Medicine; Visit Provider Family Medicine
DX: Z12.31 Encounter for screening mammogram for malignant neoplasm of breast (principal)
CPT/HCPCS: 77063; 77067

== ENCOUNTER → 2024-11-09 09:30 | Outpatient (BNV) | payer MEDICARE, SELFPAY | PROVIDERS: PCP Family Medicine; Referring Provider Family Medicine; Visit Provider Internal Medicine | DX: Z12.31 Encounter for screening mammogram for malignant neoplasm of breast (principal) | CPT/HCPCS: 77063; 77067 ==

== ENCOUNTER 2025-10-03 08:21 | Outpatient (AMB) | payer MEDICARE, SELFPAY ==
--- OUTSIDE RECORDS SUMMARY | 2016-07-16 23:00 | XMS_ITS | Encounter Summary ---
Author Organization [facility] Address [address] [facility] [address] [place] [address] Phone Care Team Providers Care General Clerk Name Role Phone Ruddy Gray MD Primary Care Provider [phone] DesiletsJosh MD Unavailable [phone] Carolina Godinez MD Unavailable [phone] Reason for Visit * MRI/CAT Scan - Closed Specialty Diagnoses / Procedures Referred By Diego hilliard Referred To Contact Procedures MRI Abdomen Outside (No Interpretation) Roger Cervantes MD [address] [place] [address] Phone: tel: fax: mailto:[email or web address] Referral ID Status Reason Start Date Expiration Date Visits Re quested Visits Authorized [id number] Closed 10/23/2016 10/23/2017 1 1 Encounter Details Date Type Department Care Team (Late st Contact Info) Description 07/17/2016 Hospital Encounter [facility] [address] [place] [address] Roger Cervantes MD [address] [place] [address] [email or web address] Social History Tobacco Use Types Packs/Day [...] Description 12/20/2025 8:40 AM EST Office Visit [facility] [address] [facility] [address] [place] [address] Maria Isabel Navarro MD [address] [facility] Jose Miguel. [address] [place] [address] [email or web address] documented as of this encounter Procedures Procedure Name Priority Date/Time Associated Diagnosis Comments MRI ABDOMEN OUTSIDE (NO INTERPRETATION) Routine 07/17/2016 12:00 AM EDT documented in this encounter Results * MRI Abdomen Outside (No Interpretation) (07/17/2016 12:00 AM EDT) Narrative [facility] IMG INTERFACES - 10/23/2016 1:20 PM EST This study is for PACS storage only and not for interpretation. us Roger Sehlton MD IMG OUT SIDE IMAGING W/OUT INTERPRETATION Final Result Performing Organization Address City/State/[facility] Co de Phone Number [facility] IMG INTERFACES documented in this encounter Visit Diagnoses Not on filedocumented in this encounter Care Teams General Clerk Relationship Specialty Start Date End Date Ruddy Gray MD [address] [place] [address] [email or web address] PCP - General Internal Medicine 01/23/16 08/25/18 DesiletsJosh MD [address] [facility] [place] [address] Gastroenterology 02/07/16 Carolina Godinez MD [address] [place] [address] Surgical Oncology 02/07/16 documented as of this encounter Additional Source Comments The information contained in this document represents components of the legal health record. It is not the complete legal health record.[facility]
[2025-10-03 08:24] VITALS: BP 130/58; PULSE 62; BMI 33.7
--- NOTE | 2025-10-03 08:24 | MHC.OFFVIS ---
Vital Signs 10/03/25 08:24 Height 5 ft 5 in Weight 202 lb 6.15 oz BMI 33.7 BP 130/58 L Blood Pressure Location Lt brachial Position Sitting Pulse 62 Pulse Source Monitor Intake Visit Reasons: 1 yr follow up Intake Note: 1 Year Follow up Stave Saw Operator Required: No Accompanied by: Self / Same As Patient Allergies lisinopril Allergy (Severe, Verified 10/03/25 08:27) Angioedema Sulfa (Sulfonamide Antibiotics) Allergy (Intermediate, Verified 10/03/25 08:27) rash, itching around mouth Medication List - Last Reconciled 10/03/25 by Colin Vo MD amlodipine 5 mg PO DAILY 90 days aspirin (Ecotrin Low Strength) 81 mg PO DAILY atorvastatin 80 mg PO DAILY calcium carbonate-vitamin D3 600 mg-5 mcg (200 unit) 1 tab PO DAILY ezetimibe 10 mg PO DAILY flaxseed oil 1,000 mg PO DAILY metoprolol succinate ER 12.5 mg (1/2 x 25 mg) PO DAILY multivitamin 1 tab PO DAILY HPI Comments Details: Devora comes for follow-up. Recently she has started noticing that when she is rushing behind her grandchildren, she had gets shortness of breath exertion. She had denies any associated chest tightness. She has been taking all her medications. No orthopnea, PND, leg edema. She had also notices now more often skipped heartbeats consistent with PVCs/PACs but they happen infrequently. They are more frequent on the weeks that she is more stress. No recent labs available for me to review. [facility] Medical History Low back pain Arthritis DJD (degenerative joint disease) Full dentures Hx of squamous cell carcinoma of skin History of GI bleed History of blood transfusion Anxiety Cataracts, bilateral Non-ST elevation [place] (NSTEMI) CAD (coronary artery disease) HTN (hypertension) Hyperlipidemia PVCs (premature ventricular contractions) Surgical History History of heart artery stent Stented coronary artery Hx of knee surgery Hx of endoscopy Hx of cardiac cath Hx of colonoscopy Family History Father CVD (cardiovascular disease) Mother CVD (cardiovascular disease) Sister Cancer Brother Pancreatic cancer Maternal Grandfather Diabetes Social History Household Members: Spouse Housing: House Are you a primary assurance services manager health care to a significant other at home: No Do you presently have visiting nurse or other home services: No Alcohol intake: never Patient Tobacco Use Status: Never used Tobacco service: No Current occupational status: retired Review of Systems Const Denies daytime sleepiness, Denies difficulty sleeping, Denies snoring, Denies stops breathing during sleep and Denies weakness Card Denies chest pain, Denies rapid heart rate, Denies irregular heart rhythm, Denies claudication, Denies leg edema, Denies lightheadedness, Reports palpitations, Denies dyspnea, Reports dyspnea on exertion, Denies orthopnea, Denies paroxysmal nocturnal dyspnea and Denies slow heart rate Resp Denies cough, Denies dyspnea, Reports dyspnea on exertion and Denies snoring GI Reports no additional complaints, Denies hematochezia, Denies change in stool character and Denies dyspepsia Musc Denies abnormal gait, Denies muscle weakness and Denies numbness Neuro Denies abnormal gait, Denies numbness and Denies weakness Endo Reports palpitations Physical Exam Vital Signs: Last Vital Signs Pulse 62 10/03/25 08:24 BP 130/58 L 10/03/25 08:24 BMI result Body Mass Index 33.7 Const General: cooperative, comfortable, no acute distress, alert and awake Nutritional Appearance: obese Orientation/consciousness: patient oriented x3 Limitations: no limitations Neck Neck: Yes trachea midline, Yes supple and Yes no JVD Carotids: no bruits Resp Effort & Inspection: normal respiratory effort Auscultation: clear to auscultation bilaterally Cardio Jugular venous distension: no JVD Palpation: normal PMI Rate: bradycardic Rhythm: abnormal rhythm with ectopic beats Heart sounds: S1 normal heart sound present, S2 normal heart sound present, no click, no gallops, no murmurs and no rubs Bruits: carotid bruit on the right GI Auscultation: normal bowel sounds Skin General skin exam: no rashes or lesions noted Neuro General: patient oriented x3 and no focal motor deficits Extrem General: Yes no clubbing, cyanosis or edema and Yes other (Wound on the left puckett with mild redness) Psych Appearance: grossly normal Office Procedures EKG Details: EKG shows normal sinus rhythm with PACs otherwise normal EKGs 36150-[id number], Complete Assessment & Plan Assessment & Plan (1) Short of breath on exertion: Code(s): R06.02 - Shortness of breath Category: Medical Plan: Shortness of breath on exertion this elderly woman with prior CAD with stenting. She has residual disease in 1 of the coronary segments that he is not revascularized. Would suggest to rule out myocardial ischemia. Also suggest to evaluate LV systolic and diastolic function as well as for pulmonary hypertension near future. She is planned to undergo surgery under general anesthesia in near future. Will try to obtain these test results prior to that. (2) CAD (coronary artery disease): Code(s): I25.10 - Atherosclerotic heart disease of [place] coronary artery without angina pectoris Category: Medical Plan: CAD with prior drug-eluting stent to RCA and chronic total occlusion circumflex artery with stenting of the LAD as well. Patient having symptoms as above. Will pursue workup for myocardial ischemia. Continue low-dose aspirin therapy otherwise. Continue high-intensity statin therapy along with ezetimibe with target goal LDL less than 60 mg/dL. Will review the labs through office. Continue aggressive blood pressure control, see below. Importance of regular physical activity was discussed as well. (3) PVCs (premature ventricular contractions): Code(s): I49.3 - Ventricular premature depolarization Category: Medical Plan: PVCs/PACs with increased symptoms recently. Although these are not bothersome. Would not meter changes records clerk at this point time. Stress mitigation strategies were discussed. Avoidance of stimulants was discussed. (4) HTN (hypertension): Code(s): I10 - Essential (primary) hypertension Category: Medical Plan: Hypertension which is currently well optimized advised to monitor blood pressure at home maintain a log. Goal blood pressure less than 130/84. Low-salt diet was discussed. She understands agrees. Continue participate in aggressive lifestyle modification. Will follow up in the clinic in 6 months time, sooner PRN. Thank you for allowing me to partake in her care Orders: Orders CA lexiscan stress w laine Today R06.02 - Shortness of breath CA echo transthoracic complete Today R06.02 - Shortness of breath NM cardiolite stress test 2 Weeks R06.02 - Shortness of breath Coding Level of Care Code Est Pt Level 4 (11080) Complex EM visit Add On G2211 Diagnoses Short of breath on exertion R06.02 CAD (coronary artery disease) I25.10 PVCs (premature ventricular contractions) I49.3 HTN (hypertension) I10 CPT Codes EKG - CPT: 84992-[id number], Complete ([id number])
--- OUTSIDE RECORDS SUMMARY | 2025-10-03 16:02 | XMS_ITS | Clinical Summary ---
Author Organization [facility] Address [address] [place] [id number] Phone Care Team Providers Care Logistics Research Engineer Name Role Phone PaulileJosh felipe MD Unavailable Carolina Godinez MD Unavailable Cedrick Cervantes MD Unavailable Maria Isabel Navarro MD Primary Care Provider Allergies Active Allergy Reactions Criticality Noted Date Comments Epinephrine Palpitations Low 11/29/2024 Lisinopril Angioedema 09/19/2021 had angioedema 08/2021 Sulfa (Sulfonamide Antibiotics) Unknown 02/03/2016 Sulfamethoxazole-Trimetho prim Rash Low 10/04/2019 rash Other Reaction(s): rash/mouth itching Outside Source Comment: rash Medications atorvastatin (LIPITOR) 80 MG tablet Take 80 mg by mouth daily. Active metoprolol succinate (TOPROL-XL) 25 MG 24 hr tablet Take 1/2 tablet by mouth once daily. Active Medication-Free Text Compression Stockings 20-30 mmHG ., Sig:as directed .dx: edema Active flaxseed oil 1,000 mg Cap Take 1,000 mg by mouth daily. Active multivitamin per tablet Take 1 tablet by mouth daily. Active aspirin 81 MG EC tablet Take 81 mg by mouth daily. Active cholecalciferol (VITAMIN D3) 1,000 unit tablet Take 1,000 Units by mouth daily. Active acetaminophen (TYLENOL) 650 MG CR tablet Take 650 mg by mouth nightly at bedtime as needed for pain (specific location in comments). Active ezetimibe (ZETIA) 10 mg tablet Take 1 tablet by mouth daily. 2 Active amLODIPine (NORVASC) 2.5 MG tabletIndication s:Essential hypertension TAKE 1 TABLET DAILY 90 tablet 1 2 Active Additional Information Patient taking differently: 5 mg Oral Daily, Reported on 05/29/2025 calcium carbonate-vitami n D3 1,500 mg (600 mg elemental)-200 units Tab Take 1 tablet by mouth daily. 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 Dylon is clear and certain that she does not want any further MRIs and understands the potential consequences of declining additional imaging. Anxiety 02/17/2018 Assessment & Plan (05/30/2025 3:11 PM EDT): Chronic. Experiences general anxiety, particularly related to surgery and MRIs. Discussed anxiety related to general anesthesia and claustrophobia. - Mindfulness meditation and joining a mindfulness group were recommended as potential therapeutic options. - Declined additional medication or therapy for anxiety at this time. Arteriosclerotic cardiovascular disease 02/18/20 Assessment & Plan (05/30/2025 3:11 PM EDT): Orders: Lipid panel; Future Assessment & Plan (11/30/2024 3:00 PM EST): Assessment & Plan (03/02/2024 4:04 PM EDT): Currently asymptomatic and with blood pressure at goal when checked regularly at home. She does have a history of whitecoat hypertension so we agreed to discount today's elevated value. Goal per salesperson flying squad is <130/84. Will check labs today to monitor lipids (goal <70) and renal function. Patient reports her murmur is longstanding and I have a copy of her echocardiogram from last year which was unremarkable. Essential hypertension 02/17/2018 Assessment & Plan (05/30/2025 3:11 PM EDT): At goal for age and comorbidities at home (with an element of whitecoat hypertension) without signs or symptoms of new end organ damage; murmur is longstanding. She is followed by cardiology. Continue current medications. Orders: Basic metabolic panel; Future Microalbumin/creatinine ratio, random urine; Future Assessment & Plan (11/30/2024 3:00 PM EST): Mostly at goal of ~130/80 but starting to drift up. If does not come back down with resumption of regular aerobic exercise would increase Norvasc. Advised to aim for 150 minutes/week but increase very gradually to ensure tolerance. Gastroesophageal reflux disease without esophagi tis 02/17/2018 Primary osteoarthritis of right knee 02/17/2018 Osteoarthritis of hip 03/19/2017 Resolved Problems Problem Noted Date Diagnosed Date Resolved Date History of myocardial infarction 02/18/2022 03/02/2024 Normocytic normochromic anemia 02/17/2018 03/02/2024 Overview (03/02/2024): resolved History of heart artery stent 02/17/2018 03/02/2024 Pancreatic mass 02/17/2018 03/02/2024 Immunizations Immunization Administration Dates Next Due COVID-19 (Pre-09/06) Pfizer Vaccine, mRNA, PF 01/18/2021,12/27/2020 INFLUENZA, SPLIT VIRUS, TRIV ALENT W/ PRESERVATIVE IM 08/14/2013,09/10/2012,08/31/2011,08/28 Influenza High-Dose Quadriva lent Preservative Free IM 08/22/2023,08/11/2022,09/18/2020 Influenza High-Dose Trivalen t Preservative Free IM 10/06/2024,09/05/2019,08/25/2018,07/29,08/13/2016,08/27/2015,07/31/2014 Influenza Quadrivalent Adjuv anted Preservative Free IM 08/09/2021 Influenza Split (Incl. Purif ied Surface Antigen) 08/17/2016 Influenza, Unspecified Formulation 09/05/2019, Pneumococcal conjugate PCV13 05/21/2015 Pneumococcal polysaccharide PPSV23 08/22/2012, RSV Vaccine (bivalent) 09/15/2023 Td (adult),2 Lf Tetanus Toxo id, PF, Adsorbed 02/13/2021 Tdap 12/11/2010 Zoster live 01/22/2017 Zoster recombinant 03/23/2019,08/25/2018 Family History Medical History Relation Comments Brain cancer Brother 1 Lung cancer Brother 1 Alcohol abuse Brother 2 Pancreatic cancer Brother 2 Parkinson's disease Brother 2 Psoriatic arthritis Brother 2 No Known Problems Brother 3 No Known Problems Daughter 1 No Known Problems Daughter 2 Coronary artery disease Father Stroke Father Diabetes Maternal Grandfather Stroke Maternal Grandfather Stroke Maternal Grandmother Alcohol abuse Maternal Uncle Alcohol abuse Mother Coronary artery disease Mother Stroke Paternal Grandmother Hypertension Sister 1 Obesity Sister 2 Thyroid disease Sister 2 Relation Status Comments Brother 1 Brother 2 Alive Brother 3 Alive Daughter 1 Alive Daughter 2 Alive Father Maternal Grandfather Maternal Grandmother Maternal Uncle Mother Paternal Grandmother Sister 1 Alive Sister 2 Alive Social History Tobacco Use Types Packs/Day Years Used Date Smoking Tobacco: Never Smokeless Tobacco: Never Tobacco Cessation:Counseling Given: Not Answered Alcohol Use Standard Drinks/Week Comments Yes 0 [...] your housing situation today? I have jacqueline messer 02/25/2024 How many times have you move [...] not to disclose 2024 3:11 PM EST Last Filed Vital Signs Vital Sign Reading Time Taken Comments Blood Pressure 150/70 05/29/2025 8:48 AM EDT Pulse 58 05/29/2025 8:29 AM EDT Temperature 36.9 C (98.4 F) 02/24/2023 8:27 AM EDT Respiratory Rate 16 04/14/2023 11:17 AM EDT Oxygen Saturation 98% 05/29/2025 8:29 AM EDT Inhaled Oxygen Concentration - - Weight 88.9 kg (196 lb) 04/25/2024 9:51 AM EDT Height 161.3 cm (5' 3.5 ) 11/29/2024 8:50 AM EST Body Mass Index 34.18 04/25/2024 9:51 AM EDT Plan of Treatment Upcoming Encounters Date Type Department Care Team (Late st Contact Info) Description 12/20/2025 8:40 AM EST Office Visit [facility] [address] [place] [address] Maira Isabel Navarro MD [address] [facility] [address] [place] [address] [email or web address] Hers Health Maintenance Due Date Last Done Comments DEPRESSION SCREENING 02/24/2025 02/25/2024 INFLUENZA VACCINE (#1) 2025 , 08/22/2023, 08/11/2022, Additional history exists COVID-19 VACCINE (2024- season) 2025 10/06/2024, 05/22/2024, 08/22/2023, Additional history exists BLOOD PRESSURE 11/29/2025 05/29/2025 Adult Td,Tdap Booster 02/13/2031 02/13/2021, 011 PNEUMOCOCCAL VACCINES (50+ years) Completed 05/21/2015, 08/22/2012, 11/05/2011 ZOSTER VACCINES Completed 03/23/2019, 08/15, 01/22/2017 HEPATITIS C SCREENING Completed 04/02/2020 OSTEOPOROSIS SCREENING INITIAL (ONE-TIME) Completed 10/22/2021, 08/10/2019, 01/22/2017 RSV VACCINE Completed 09/15/2023 SMOKING STATUS SCREENING (Once After 26 Yrs) Completed 05/30/2025 HEPATITIS A VACCINES Aged Out No long er eligible based on patient's age to complete this topic HIB VACCINES Aged Out No longer eligi ble based on patient's age to complete this topic MENINGOCOCCAL VACCINES (ACWY) Aged Out No longer eligible based on patient's age to complete this topic MENINGOCOCCAL VACCINES (B) Aged Out N o longer eligible based on patient's age to complete this topic Medical Devices Not on file Procedures Procedure Name Priority Date/Time Associated Diagnosis Comments OUTSIDE BONE DENSITY SCREENING Routine 10/22/2021 OUTSIDE HEPATITIS C VIRUS SCREENING Routine 04/02/2020 from Last 3 Months or Most Recently Relevant to Health Maintenance Results * OUTSIDE BONE DENSITY SCREENING (10/22/2021) BONE DENSITY SCREENING - EXTERNAL osteopenia us Historical Provider HEALTH MAINTENANCE Final Result * Outside Hepatitis C Virus Screening (04/02/2020) Hepatitis C Screening - External Neg Historical Provider LAB BLOOD ORDERABLES Steph l Result from Last 3 Months or Most Recently Relevant to Health Maintenance Insurance [facility] MEDICARE REPLACEMENT [facility] MEDICARE REPLACEMENT [facility] MEDICARE [facility]PLACEMENT [facility] MEDICARE REPLACEMENT [facility] MEDICARE REPLACEMENT [facility] MEDICARE REPLACEMENT [facility] MEDICARE REPLACEMENT [facility] MEDICARE REPLACEMENT [facility] MEDICARE REPLACEMENT Care Teams Logistics Research Engineer Relationship Specialty Start Date End Date Maria Isabel Navarro MD [address] [address] PCP - General Family Medicine 12/13/23 DesiletsJosh MD [address] [place] [address] [place] [address] Gastroenterology 02/07/16 Carolina Godinez MD [facility] [place] [address] Surgical Oncology 02/07/16 Cedrick Cervantes MD [address] [place] [id number] Ophthalmology 04/14/23 Additional Source Comments The information contained in this document represents components of the legal health record. It is not the complete legal health record.[facility]
--- OUTSIDE RECORDS SUMMARY | 2025-10-03 16:02 | XMS_ITS | Encounter Summary ---
Author Organization [facility] Address [address] [place] [address] Phone Care Team Providers Care Automotive Production Worker Name Role Phone Ruddy Gray MD Primary Care Provider DesiletsJosh MD Unavailable Carolina Godinez MD Unavailable Carrie Desouza DO Unavailable Brooke Antunez MD Unavailable Ruddy Gray MD Unavailable Camila Parmar BAD WORK GATHERER Unavailable [phone] Camila Parmar BAD WORK GATHERER Primary Care Provider Cedrick Cervantes MD Unavailable Maria Isabel Navarro MD Primary Care Provider [phone] Encounter Details Date Type Department Care Team (Late st Contact Info) Description 03/20/2018 Procedure Pass [facility], [address] [address] Social History Tobacco Use Types Packs/Day Years Used Date Smoking Tobacco: Never Smokeless Tobacco: Never Alcohol Use Standard Drinks/Week Comments Yes 0 (1 standard drink = 0.6 oz pur e alcohol) 1-2 glasses per month Comments Unknown Sex and Gender Information Value Date Recorded Sex Assigned at Female 11/16/2024 3:11 PM EST Legal Sex Female 3:20 PM EST Gender Identity Female 11/16/2024 3:11 PM EST Sexual Orientation Choose not to disclose 2024 3:11 PM EST documented as of this encounter Last Filed Vital Signs Vital Sign Reading Time Taken Comments Blood Pressure - - Pulse - - Temperature - - Respiratory Rate - - Oxygen Saturation - - Inhaled Oxygen Concentration - - Weight 82.6 kg (182 lb) 03/21/2018 5:34 PM EDT Height 165.1 cm (5' 5 ) 03/21/2018 5:34 PM EDT Body Mass Index 30.29 03/21/2018 5:34 PM EDT documented in this encounter Plan of Treatment Upcoming Encounters Date Type Department Care Team (Late st Contact Info) Description 12/20/2025 8:40 AM EST Office Visit [facility] Primary Care [address] [facility] [address] [place] [address] Maria Isabel Navarro MD 15 [facility] Jose Miguel. 201 [place] [address] [email or web address] documented as of this encounter Visit Diagnoses Not on filedocumented in this encounter Additional Health Concerns Assessment Noted Time PHQ-2 Depression Total Score: 0 02/18/20 18 8:19 AM EDT documented as of this encounter Care Teams Automotive Production Worker Relationship Specialty Start Date End Date Ruddy Gray MD 40 [place] [address] PCP - General Internal Medicine 01/23/16 08/25/18 Camila Parmar NP 26 [facility] 6 [place] [address] PCP - General Family Medicine 08/26/18 12/12/23 Maria Isabel Navarro MD 15 [facility] Jose Miguel. [address] [place] [address] [email or web address] PCP - General Family Medicine 12/13/23 [place] [address] [place] [address] [place] [address] Gastroenterology 02/07/16 [place] [address] [place] [address] Surgical Oncology 02/07/16 Carrie Desouza DO 30 [place] [address] [email or web address] Historical LMR Provider 09/04/17 02/12/21 Brooke Antunez MD 84 [place] [address] Historical LMR Provider 09/04/17 Ruddy Gray MD [address] [place] [address] [email or web address] Historical LMR Provider 09/04/17 02/12/21 Camila Parmar NP [address] [place] [address] [email or web address] Historical LMR Provider 09/04/17 02/12/21 Cedrick Cervantes MD [address] [place] [address] [address] [place] [address] Ophthalmology 04/14/23 documented as of this encounter Additional Source Comments The information contained in this document represents components of the legal health record. It is not the complete legal health record.[facility]
--- OUTSIDE RECORDS SUMMARY | 2025-10-03 16:02 | XMS_ITS | Encounter Summary ---
Author Organization [facility] Address [address] [place] [address] Phone Care Team Providers Care Loan Adviser Name Role Phone Ruddy Gray MD Primary Care Provider DesiletsJosh MD Unavailable [phone] Carolina Godinez MD Unavailable Carrie Desouza DO Unavailable Brooke Antunez MD Unavailable Ruddy Gray MD Unavailable Camila Parmar CONTROL SYSTEMS SPECIALIST Unavailable [phone] Camila Parmar CONTROL SYSTEMS SPECIALIST Primary Care Provider Cedrick Cervantes MD Unavailable Maria Isabel Navarro MD Primary Care Provider Encounter Details Date Type Department Care Team (Late st Contact Info) Description 10/23/2016 Procedure Pass [facility] General Imaging [address] [place] [address] Social History Tobacco Use Types Packs/Day Years Used Date Smoking Tobacco: Never Smokeless Tobacco: Never Alcohol Use Standard Drinks/Week Comments Yes 0 (1 standard drink = 0.6 oz pur e alcohol) 1-2 glasses per month Comments No Sex and Gender Information Value [...] Description 12/20/2025 8:40 AM EST Office Visit [facility] [place] Primary Care 15 [facility] [address] [place] [address] Maria Isabel Navarro MD 15 [facility] Jose Miguel. 201 [place] [address] documented as of this encounter Visit Diagnoses Not on filedocumented in this encounter Care Teams Loan Adviser Relationship Specialty Start Date End Date Ruddy Gray MD [address] [place] [address] PCP - General Internal Medicine 01/23/16 08/25/18 Camila Parmar NP [address] [place] [address] PCP - General Family Medicine 08/26/18 12/12/23 Maria Isabel Navarro MD 15 [facility]. 201 [place] [address] PCP - General Family Medicine 12/13/23 Josh Peralta MD [address] [place] [address] [place] [address] Gastroenterology 02/07/16 Carolina Godinez MD [address] [place] [address], [place] [address] Surgical Oncology 02/07/16 Carrie Desouza DO 30 [place] [address] [email or web address] Historical LMR Provider 09/04/17 02/12/21 Brooke Antunez MD 84 [place] [address] Historical LMR Provider 09/04/17 Ruddy Gray MD [address] [place] [address] [email or web address] Historical LMR Provider 09/04/17 02/12/21 Camila Parmar NP 26 [facility] 6 [place] [address] Historical LMR Provider 09/04/17 02/12/21 Cedrick Cervantes MD [address] [place] [address] [place] [address] Ophthalmology 04/14/23 documented as of this encounter Additional Source Comments The information contained in this document represents components of the legal health record. It is not the complete legal health record.[facility]
--- OUTSIDE RECORDS SUMMARY | 2025-10-03 16:02 | XMS_ITS | Encounter Summary ---
Author Organization [facility] Address [address] [place] [address] Phone Care Team Providers Care Tablet Technician Name Role Phone Ruddy Gray MD Primary Care Provider DesiletsJosh MD Unavailable [place] Godinez MD Unavailable Carrie Desouza DO Unavailable Brooke Antunez MD Unavailable Ruddy Gray MD Unavailable Camila Parmar STAMP PAD MAKER Unavailable [phone] Camila Parmar STAMP PAD MAKER Primary Care Provider Cedrick Cervantes MD Unavailable [phone] Maria Isabel Navarro MD Primary Care Provider Encounter Details Date Type Department Care Team (Late st Contact Info) Description 03/16/2017 Procedure Pass [facility] General Imaging [address] [place] [address] Social History Tobacco Use Types Packs/Day Years Used Date Smoking Tobacco: Never Comments Unknown Sex and Gender Information Value [...] Description 12/20/2025 8:40 AM EST Office Visit [facility] [place] [facility] 15 [facility] [address] [place] [address] Maria Isabel Navarro MD 15 [facility] 201 [place] [address] documented as of this encounter Visit Diagnoses Not on filedocumented in this encounter Care Teams Tablet Technician Relationship Specialty Start Date End Date Ruddy Gray MD 40 [place] [address] PCP - General Internal Medicine 01/23/16 08/25/18 Camila Parmar NP [address] [place] [address] 6 [place] [address] PCP - General Family Medicine 08/26/18 12/12/23 Maria Isabel Navarro MD 15 [facility] 201 [place] [address] PCP - General Family Medicine 12/13/23 Josh Peralta MD 3300 [facility] [place] [address] Gastroenterology 02/07/16 Carolina Godinez MD 3350 [place] [address] Surgical Oncology 02/07/16 Carrie Desouza DO 30 [place] [address] [email or web address] Historical LMR Provider 09/04/17 02/12/21 Brooke Antunez MD 84 [place] [address] Historical LMR Provider 09/04/17 Ruddy Gray MD 40 [place] [address] Historical LMR Provider 09/04/17 02/12/21 Camila Parmar NP [address] [place] [address] [address] Historical LMR Provider 09/04/17 02/12/21 Cedrick Cervantes MD [address] [place] [address] Dr PADILLA [facility] [place] [address] Ophthalmology 04/14/23 documented as of this encounter Additional Source Comments The information contained in this document represents components of the legal health record. It is not the complete legal health record.[facility]
--- OUTSIDE RECORDS SUMMARY | 2025-10-03 16:02 | XMS_ITS | Encounter Summary ---
Author Organization [facility] Address [address] [place] [address] Phone Care Team Providers Care Rural Sociologist Name Role Phone Ruddy Gray MD Primary Care Provider [phone] DesiletsJosh MD Unavailable [place] Godinez MD Unavailable Carrie Desouza DO Unavailable Brooke Antunez MD Unavailable Ruddy Gray MD Unavailable Camila Parmar FINANCIAL RECRUITER Unavailable [phone] Camila Parmar FINANCIAL RECRUITER Primary Care Provider Cedrick Cervantes MD Unavailable Maria Isabel Navarro MD Primary Care Provider Encounter Details Date Type Department Care Team (Late st Contact Info) Description 03/16/2017 Procedure Pass [facility] General Imaging [address] [place] [address] Social History Tobacco Use Types Packs/Day Years [...] Description 12/20/2025 8:40 AM EST Office Visit [facility] [place] Primary Care 15 [facility] [address] [place] [address] Maria Isabel Navarro MD 15 [facility]. 201 [place] [address] documented as of this encounter Visit Diagnoses Not on filedocumented in this encounter Care Teams Rural Sociologist Relationship Specialty Start Date End Date Ruddy Gray MD 40 [place] [address] PCP - General Internal Medicine 01/23/16 08/25/18 Camila Parmar NP [address] [place] [address] 6 [place] [address] PCP - General Family Medicine 08/26/18 12/12/23 Maria Isabel Navarro MD 15 [facility] 201 [place] [address] PCP - General Family Medicine 12/13/23 Josh Peralta MD 3300 [facility] [place] [address] Gastroenterology 02/07/16 Carolina Godinez MD 3350 [place] [address] Surgical Oncology 02/07/16 Carrie Desouza DO 30 [place] [address] [email or web address] Historical LMR Provider 09/04/17 02/12/21 Brooke Antunez MD 84 [place] [address] Historical LMR Provider 09/04/17 Ruddy Gray MD 40 [place] [address] Historical LMR Provider 09/04/17 02/12/21 Camila Parmar NP [address] [address] Historical LMR Provider 09/04/17 02/12/21 Cedrick Cervantes MD [address] [place] [address] Dr PADILLA [facility] [place] [address] Ophthalmology 04/14/23 documented as of this encounter Additional Source Comments The information contained in this document represents components of the legal health record. It is not the complete legal health record.[facility]
== END 2025-10-03 08:53 | disposition home or self-care (01) ==
LOC: HO.HCS 08:22
PROVIDERS: PCP Internal Medicine; Visit Provider Internal Medicine Cardiovascular Disease
DX: R06.02 Shortness of breath (principal); I25.10 Atherosclerotic heart disease of native coronary artery without angina pectoris; I49.3 Ventricular premature depolarization; I10 Essential (primary) hypertension
CPT/HCPCS: 93010; 99214; G2211

== ENCOUNTER → 2025-10-03 08:21 | Outpatient (BNVA) | payer MEDICARE, SELFPAY | PROVIDERS: PCP Internal Medicine; Visit Provider Internal Medicine Cardiovascular Disease | DX: R06.02 Shortness of breath (principal); I25.10 Atherosclerotic heart disease of native coronary artery without angina pectoris; I49.3 Ventricular premature depolarization; I10 Essential (primary) hypertension | CPT/HCPCS: 93005; 99212 ==

== ENCOUNTER → 2025-10-05 08:44 | Outpatient (REF) | payer MEDICARE, SELFPAY ==
--- OUTSIDE RECORDS SUMMARY | 2016-07-16 23:00 | XMS_ITS | Encounter Summary ---
Author Organization [facility] Address [address] [facility] [address] [place] [address] Phone Care Team Providers Care Electroencephalogram Technologist Name Role Phone Ruddy Gray MD Primary Care Provider [phone] DesiletsJosh MD Unavailable [phone] Carolina Godinez MD Unavailable [phone] Reason for Visit * MRI/CAT Scan - Closed Specialty Diagnoses / Procedures Referred By Diego hilliard Referred To Contact Procedures MRI Abdomen Outside (No Interpretation) Roger Cervantes MD [address] [place] [address] Phone: tel: fax: mailto:[email or web address] Referral ID Status Reason Start Date Expiration Date Visits Re quested Visits Authorized [id number] Closed 10/23/2016 10/23/2017 1 1 Encounter Details Date Type Department Care Team (Late st Contact Info) Description 07/17/2016 Hospital Encounter [facility] [address] [place] [address] Roger Cervantes MD [address] [place] [address] [email or web address] Social History Tobacco Use Types Packs/Day [...] Description 12/20/2025 8:40 AM EST Office Visit [facility] [address] [facility] [address] [place] [address] Maria Isabel Navarro MD [address] [facility] Jose Miguel. [address] [place] [address] [email or web address] documented as of this encounter Procedures Procedure Name Priority Date/Time Associated Diagnosis Comments MRI ABDOMEN OUTSIDE (NO INTERPRETATION) Routine 07/17/2016 12:00 AM EDT documented in this encounter Results * MRI Abdomen Outside (No Interpretation) (07/17/2016 12:00 AM EDT) Narrative [facility] IMG INTERFACES - 10/23/2016 1:20 PM EST This study is for PACS storage only and not for interpretation. us Roger Shelton MD IMG OUT SIDE IMAGING W/OUT INTERPRETATION Final Result Performing Organization Address City/State/[facility] Co de Phone Number [facility] IMG INTERFACES documented in this encounter Visit Diagnoses Not on filedocumented in this encounter Care Teams Electroencephalogram Technologist Relationship Specialty Start Date End Date Ruddy Gray MD [address] [place] [address] [email or web address] PCP - General Internal Medicine 01/23/16 08/25/18 DesiletsJosh MD [address] [facility] [place] [address] Gastroenterology 02/07/16 Carolina Godinez MD [address] [place] [address] Surgical Oncology 02/07/16 documented as of this encounter Additional Source Comments The information contained in this document represents components of the legal health record. It is not the complete legal health record.[facility]
--- OUTSIDE RECORDS SUMMARY | 2025-10-05 08:47 | XMS_ITS | Encounter Summary ---
Author Organization [facility] Address [address] [place] [address] Phone Care Team Providers Care Vp Mobile Products Name Role Phone Ruddy Gray MD Primary Care Provider DesiletsJosh MD Unavailable [place] Godinez MD Unavailable Carrie Desouza DO Unavailable Brooke Antunez MD Unavailable Ruddy Gray MD Unavailable Camila Parmar SENIOR PRODUCT DEVELOPMENT MANAGER Unavailable [phone] Camila Parmar SENIOR PRODUCT DEVELOPMENT MANAGER Primary Care Provider Cedrick Cervantes MD Unavailable Maria Isabel Navarro MD Primary Care Provider [phone] Encounter Details Date Type Department Care Team (Late st Contact Info) Description 03/20/2018 Procedure Pass [facility], [address] [address] Social History Tobacco Use Types Packs/Day Years [...] Description 12/20/2025 8:40 AM EST Office Visit [facility] Primary Care 15 [facility] [address] [place] [address] Maria Isabel Navarro MD 15 [facility] Jose Miguel. 201 [place] [address] [email or web address] documented as of this encounter Visit Diagnoses Not on filedocumented in this encounter Additional Health Concerns Assessment Noted Time PHQ-2 Depression Total Score: 0 02/18/20 18 8:19 AM EDT documented as of this encounter Care Teams Vp Mobile Products Relationship Specialty Start Date End Date Ruddy Gray MD 40 [place] [address] PCP - General Internal Medicine 01/23/16 08/25/18 Camila Parmar NP 26 [facility] [place] 6 [place] [address] PCP - General Family Medicine 08/26/18 12/12/23 Maria Isabel Navarro MD 15 [facility] Jose Miguel. [address] [place] [address] [email or web address] PCP - General Family Medicine 12/13/23 [place] [address] [place] [address] [place] [address] Gastroenterology 02/07/16 [place] [address] [place] [address] Surgical Oncology 02/07/16 Carrie Desouza DO 30 [place] [address] [email or web address] Historical LMR Provider 09/04/17 02/12/21 Brooke Antunez MD 84 [place] [address] Historical LMR Provider 09/04/17 Ruddy Gray MD [address] [place] [address] [email or web address] Historical LMR Provider 09/04/17 02/12/21 Camila Parmar NP [address] [place] [address] [email or web address] Historical LMR Provider 09/04/17 02/12/21 Cedrick Cervantes MD [address] [place] [address] [address] [place] [address] Ophthalmology 04/14/23 documented as of this encounter Additional Source Comments The information contained in this document represents components of the legal health record. It is not the complete legal health record.[facility]
--- OUTSIDE RECORDS SUMMARY | 2025-10-05 08:47 | XMS_ITS | Encounter Summary ---
Author Organization [facility] Address [address] [place] [address] Phone Care Team Providers Care Roustabout Crew Pusher Name Role Phone Ruddy Gary MD Primary Care Provider DesiletsJosh MD Unavailable [place] Godinez MD Unavailable Carrie Desouza DO Unavailable Brooke Antunez MD Unavailable Ruddy Gray MD Unavailable Camila Parmar WEAVER HAND Unavailable [phone] Camila Parmar WEAVER HAND Primary Care Provider Cedrick Crevantes MD Unavailable Maria Isabel Navarro MD Primary Care Provider Encounter Details Date Type Department Care Team (Late st Contact Info) Description 10/23/2016 Procedure Pass [facility] General Imaging [address] [place] [address] Social History Tobacco Use Types Packs/Day Years [...] Description 12/20/2025 8:40 AM EST Office Visit [facility] [place] Primary Care 15 [facility] [address] [place] [address] Maria Isabel Navarro MD 15 [facility] Jose Miguel. 201 [place] [address] documented as of this encounter Visit Diagnoses Not on filedocumented in this encounter Care Teams Roustabout Crew Pusher Relationship Specialty Start Date End Date Ruddy Gray MD [address] [place] [address] PCP - General Internal Medicine 01/23/16 08/25/18 Camila Parmar NP [address] [place] [address] PCP - General Family Medicine 08/26/18 12/12/23 Maria Isabel Navarro MD 15 [facility]. 201 [place] [address] PCP - General Family Medicine 12/13/23 Josh Peralta MD [address] [place] [address] [place] [address] Gastroenterology 02/07/16 [place] Godinez MD [address] [place] [address], [place] [address] Surgical Oncology 02/07/16 Carrie Desouza DO 30 [place] [address] [email or web address] Historical LMR Provider 09/04/17 02/12/21 Brooke Antunez MD 84 [place] [address] Historical LMR Provider 09/04/17 Ruddy Gray MD [address] [place] [address] [email or web address] Historical LMR Provider 09/04/17 02/12/21 Camila Parmar NP 26 [facility] 6 [place] [address] Historical LMR Provider 09/04/17 02/12/21 Cedrick Cervantes MD [address] [place] [address] [place] [address] Ophthalmology 04/14/23 documented as of this encounter Additional Source Comments The information contained in this document represents components of the legal health record. It is not the complete legal health record.[facility]
--- OUTSIDE RECORDS SUMMARY | 2025-10-05 08:48 | XMS_ITS | Clinical Summary ---
Author Organization [facility] Address [address] [place] [address] Phone Care Team Providers Care Retail General Manager Name Role Phone PaulileJosh felipe MD Unavailable [phone] [place] Godinez MD Unavailable [phone] Cedrick Cervantes MD Unavailable [phone] Maria Isabel Navarro MD Primary Care Provider [phone] Allergies Active Allergy Reactions Criticality Noted Date [...] to discount today's elevated value. Goal per pediatric medical assistant is <130/84. Will check labs today to [...] Description 12/20/2025 8:40 AM EST Office Visit [facility] [place] Primary Care 15 [facility] [address] [place] [address] Maria Isabel Navarro MD 15 [facility] Jose Miguel. 201 [place] [address] [email or web address] Due Date Last Done Comments [...] Most Recently Relevant to Health Maintenance Insurance [facility] MEDICARE REPLACEMENT [facility] MEDIC[facility] REPLACEMENT [facility] MED[facility]PLACEMENT [facility] MED[facility] REPLACEMENT [facility] MED[facility] REPLACEMENT [facility] MEDIC[facility]PLACEMENT [facility] MED[facility] REPLACEMENT [facility] MEDICARE REPLACEMENT [facility] MEDICARE REPLACEMENT Care Teams Retail General Manager Relationship Specialty Start Date End Date Maria Isabel Navarro MD [address] [address] PCP - General Family Medicine 12/13/23 DesiletsJosh MD [address] [place] [address] [place] [address] Gastroenterology 02/07/16 [place] Godinez MD [facility] [place] [address] Surgical Oncology 02/07/16 Cedrick Cervantes MD [address] [place] [address] Ophthalmology 04/14/23 Additional Source Comments The information contained in this document represents components of the legal health record. It is not the complete legal health record.[facility]
--- OUTSIDE RECORDS SUMMARY | 2025-10-05 08:48 | XMS_ITS | Encounter Summary ---
Author Organization [facility] Address [address] [place] [address] Phone Care Team Providers Care Project Manager Industrial Name Role Phone Ruddy Gray MD Primary Care Provider DesiletsJosh MD Unavailable [place] Godinez MD Unavailable [phone] Carrie Desouza DO Unavailable Brooke Antunez MD Unavailable Ruddy Gray MD Unavailable Camila Parmar DIETETIC TECH Unavailable [phone] Camila Parmar DIETETIC TECH Primary Care Provider Cedrick Cervantes MD Unavailable [phone] Maria Isabel Navarro MD Primary Care Provider Encounter Details Date Type Department Care Team (Late st Contact Info) Description 03/16/2017 Procedure Pass [facility] General Imaging [address] [place] [address] Social History Tobacco Use Types Packs/Day Years [...] Description 12/20/2025 8:40 AM EST Office Visit [facility] Primary Care [address] [facility] [address] [place] [address] Maria Isabel Navarro MD 15 [facility]. 201 [place] [address] documented as of this encounter Visit Diagnoses Not on filedocumented in this encounter Care Teams Project Manager Industrial Relationship Specialty Start Date End Date Ruddy Gray MD 40 [place] [address] PCP - General Internal Medicine 01/23/16 08/25/18 Camila Parmar NP [address] [place] [address] 6 [place] [address] PCP - General Family Medicine 08/26/18 12/12/23 Maria Isabel Navarro MD 15 [facility] 201 [place] [address] PCP - General Family Medicine 12/13/23 Josh Peralta MD 3300 [facility] [place] [address] Gastroenterology 02/07/16 [place] Godinez MD 3350 [place] [address] Surgical Oncology 02/07/16 Carrie Desouza DO 30 [place] [address] [email or web address] Historical LMR Provider 09/04/17 02/12/21 Brooke Antunez MD 84 [place] [address] Historical LMR Provider 09/04/17 Ruddy Gray MD 40 [place] [address] Historical LMR Provider 09/04/17 02/12/21 Camila Parmar NP [address] [address] Historical LMR Provider 09/04/17 02/12/21 Cedrick Cervantes MD [address] [place] [address] Dr [facility]A [facility] [place] [address] Ophthalmology 04/14/23 documented as of this encounter Additional Source Comments The information contained in this document represents components of the legal health record. It is not the complete legal health record.[facility]
--- OUTSIDE RECORDS SUMMARY | 2025-10-05 08:48 | XMS_ITS | Encounter Summary ---
Author Organization [facility] Address [address] [place] [address] Phone Care Team Providers Care Alliances Consultant Name Role Phone Ruddy Gray MD Primary Care Provider DesiletsJosh MD Unavailable Carolina Godinez MD Unavailable [phone] Carrie Desouza DO Unavailable Brooke Antunez MD Unavailable Ruddy Gray MD Unavailable Camila Parmar WASTE PICKER Unavailable [phone] Camila Parmar WASTE PICKER Primary Care Provider Cedrick Cervantes MD Unavailable Maria Isabel Navarro MD Primary Care Provider Encounter Details Date Type Department Care Team (Late st Contact Info) Description 03/16/2017 Procedure Pass [facility] General Imaging [address] [place] [address] Social History Tobacco Use Types Packs/Day Years [...] Description 12/20/2025 8:40 AM EST Office Visit [facility] [address] [facility] [address] [place] [address] Maria Isabel Navarro MD 15 [facility]. 201 [place] [address] documented as of this encounter Visit Diagnoses Not on filedocumented in this encounter Care Teams Alliances Consultant Relationship Specialty Start Date End Date Ruddy Gray MD 40 [place] [address] PCP - General Internal Medicine 01/23/16 08/25/18 Camila Parmar NP [address] [place] [address] 6 [place] [address] PCP - General Family Medicine 08/26/18 12/12/23 Maria Isabel Navarro MD 15 [facility] 201 [place] [address] PCP - General Family Medicine 12/13/23 Josh Peralta MD 3300 [facility] [place] [address] Gastroenterology 02/07/16 Carolina Godinez MD 3350 [place] [address] Surgical Oncology 02/07/16 Carrie Desouza DO 30 [place] [address] [email or web address] Historical LMR Provider 09/04/17 02/12/21 Brooke Antunez MD 84 [place] [address] Historical LMR Provider 09/04/17 Ruddy Gray MD 40 [place] [address] Historical LMR Provider 09/04/17 02/12/21 Camila Parmar NP [address] [address] Historical LMR Provider 09/04/17 02/12/21 Cedrick Cervantes MD [address] [place] [address] Dr [place] [address] Ophthalmology 04/14/23 documented as of this encounter Additional Source Comments The information contained in this document represents components of the legal health record. It is not the complete legal health record.[facility]
--- NOTE | 2025-10-05 08:49 | CA_ITS ---
Transthoracic Echocardiogram Patient (Last, First, Middle): Devora Aguirre, Gender: F Date of : 1945 Age: 80 Procedure Date: 10/05/2025 Procedure Type: Transthoracic Echocardiogram Location: OP Height: 165.1 cm Weight: 91.63 kg BSA: 1.99 m2 Heart Rate: 60 bpm BP: 178 / 80 mmHg Senior Ios Software Engineer: [email or web address] Referring MD: Colin Vo MD Symptoms: R06.02 - Shortness of breath Study Quality: Adequate ECG Rhythm: Sinus Conclusions: - The left ventricular systolic function is normal. The calculated ejection fraction is 66% by biplane method. - No obvious valvular pathology seen on this study. Findings Left Ventricle Normal left ventricular cavity size. The left ventricular systolic function is normal. The calculated ejection fraction is 66% by biplane method. There is no evidence of regional wall motion abnormalities. Diastolic function is normal for age. There is mild septal asymmetric hypertrophy. Right Ventricle Normal right ventricular cavity size and systolic function. Atria The left atrium is mildly dilated. The right atrium is normal in size. Aortic Valve There is a normal trileaflet aortic valve. There is no aortic valve stenosis. There is no aortic valve regurgitation. Mitral Valve The mitral valve appears normal. There is no mitral valve regurgitation. There is no mitral valve stenosis. Pulmonic Valve The pulmonic valve is likely normal. Tricuspid Valve Normal tricuspid valve structure. There is trace tricuspid valve regurgitation. There is no evidence of pulmonary hypertension. Great Vessels The asc aorta and aortic arch are normal in size. Small plaque is seen in the sino tubular ridge. Venous The inferior vena cava is normal in size and collapses greater than 50% with inspiration. Pericardium/Pleural There is no evidence of pericardial effusion. Prior Study Comparison No significant change compared to prior study dated: 04/07/2023. Recommendations, Care & Conclusions No obvious valvular pathology seen on this study. Measurements 2D Linear Measurements IVSd: 1.19 0.6-0.9/0.6-1.0 cm LVIDd: 5.23 3.9-5.3/4.2-5.9 cm LVIDd Index: 2.63 2.4-3.2/2.2-3.1 cm/m2 LVIDs: 3.00 2.0-3.6 cm LVPWd: 0.92 0.7-1.1 cm LA Diam: 3.80 2.7-3.8/3.0-4.0 cm LAIDs Index: 1.91 1.5-2.3 cm/m2 LV Mass: 261.65 67-162/88-224 g LV Mass Index: 131.48 43-95/49-115 g/m2 LVOT Diam: 2.00 3.0+(-)1.3 cm 2D Systolic Function EF 4C: 66.00 >55% EF 2C: 65.80 >55% EF BiP: 66.40 >55% Mitral Valve MV Pk E: 0.99 MV PK A: 1.03 MV Decel Time: 187.00 E/A: 1.00 E'Lateral: 7.40 E'Medial: 5.77 E/E' Med: 17.20 E/E' Lat: 13.40 PHT: 55.00 MVA PHT: 4.00 Decel [place]: 5.33 Aortic Valve AoV Pk Víctor: 1.62 AoV Mn Víctor: 1.02 AoV VTI: 0.41 AoV Pk Grad: 10.00 Aov Mn Grad: 5.00 TIANA Cont.VTI: 2.64 LVOT LVOT Pk Víctor: 1.52 LVOT Mn Víctor: 0.88 LVOT VTI: 0.34 LVOT Pk Grad: 9.00 LVOT Mn Grad: 4.00 LVOT Diam: 2.00 LVOT Area: 3.14 Diastolic Function MV Pk E: 0.99 MV Pk A: 1.03 E/A: 1.00 E'Medial: 5.77 E/E' Med: 17.20 E' Laterial: 7.40 E/E' Lat: 13.40 Right Ventricle TAPSE (mm): 29.10 TVS' Víctor: 12.80 Tricuspid Valve TR Pk Víctor: 2.41 TR Pk Grad: 23.00 RA Press: 3.00 RVSP: 26.00 Great Vessels Aorta Sinus of Valsalva: 3.30 2.0-3.5 cm Ao Asc: 3.40 2.1-3.4 cm Ao Arch: 3.10 Pulmonary Veins Pulm Vein S/D 1.30 Pulmonary Valve PV Pk Víctor: 1.09 Peak PV Grad: 5.00 Updated in Other Vendor System with Status of Final Rashel Velez MD electronically signed on 10/06/2025 11:52:44 AM with status of Final
== END ==
LOC: HO.CARD 08:44
PROVIDERS: PCP Family Medicine; Visit Provider Internal Medicine Cardiovascular Disease
DX: R06.02 Shortness of breath (principal)
CPT/HCPCS: 93306

== ENCOUNTER → 2025-10-05 08:49 | Outpatient (BNV) | payer MEDICARE, SELFPAY | PROVIDERS: PCP Family Medicine; Visit Provider Internal Medicine | DX: I42.2 Other hypertrophic cardiomyopathy (principal); R06.02 Shortness of breath | CPT/HCPCS: 93306 ==

== ENCOUNTER → 2025-10-10 07:46 | Outpatient (REF) | payer MEDICARE, SELFPAY ==
--- OUTSIDE RECORDS SUMMARY | 2016-07-16 23:00 | XMS_ITS | Encounter Summary ---
Author Organization [facility] Address [address] [facility] [address] [place] [address] Phone Care Team Providers Care Pallet Rectifier Name Role Phone Ruddy Gray MD Primary Care Provider [phone] DesiletsJosh MD Unavailable [phone] Carolina Godinez MD Unavailable [phone] Reason for Visit * MRI/CAT Scan - Closed Specialty Diagnoses / Procedures Referred By Diego hilliard Referred To Contact Procedures MRI Abdomen Outside (No Interpretation) Roger Cervantes MD [address] [place] [address] Phone: tel: fax: mailto:[email or web address] Referral ID Status Reason Start Date Expiration Date Visits Re quested Visits Authorized [id number] Closed 10/23/2016 10/23/2017 1 1 Encounter Details Date Type Department Care Team (Late st Contact Info) Description 07/17/2016 Hospital Encounter [facility] [address] [place] [address] Roger Cervantes MD [address] [place] [address] [email or web address] Social History Tobacco Use Types Packs/Day Years Used Date Smoking Tobacco: Never Smokeless Tobacco: Never Alcohol Use Standard Drinks/Week Comments Yes 0 (1 standard drink = 0.6 oz pur e alcohol) 1-2 glasses per month Child or Family Care Answer Date Record ed Do you have problems with on e of the following making it difficult for you to work, study, or receive health care? No 02/25/2024 Education Answer Date Recorded Are you interested in more education? Not on hector e 03/12/2023 Are you concerned about learning? Not on file 03/12/2023 No 03/12/2023 No 03/12/2023 Food Answer Date Recorded Within the past 6 months we worried whether our food would run out before we got money to buy more. Never True 02/25/2024 Within the past 6 months the food we bought just didn't last and we didn't have enough money to get more. Never True Residential Stability Answer Date Recor ded What is your housing situation today? I have jacqueline sing 02/25/2024 How many times have you move d in the past 12 months? Zero (I did not move) 02/25/2024 Paying for Meds Answer Date Recorded Do you have trouble paying for medicines? No 02/25/2024 Paying Utility Bills Answer Date Record ed Do you have trouble paying your heating or elect ricity bill? No 02/25/2024 Transportation Answer Date Recorded Has the lack of transportati on kept you from medical appointments or from getting medications? No 02/25/2024 Digital Access Answer Date Recorded No 02/25/2024 Yes 02/25/2024 Do you have reliable internet access at home? Ye s 02/25/2024 Do you have a device (e.g., phone, tablet, computer) with a working camera? Yes 02/25/2024 Intimate Partner Violence Answer Date R ecorded Denied Basic Needs Not on file 02/25/2024 In the past 12 months have y ou been in a relationship with a person who hurts, threatens, or tries to control you? No 02/25/2024 Worried food would run out Not on file 02/24 In the past 12 months have y ou been in a relationship with a person who hurts, threatens, or tries to control you? No 02/25/2024 Comments No Sex and Gender Information Value Date Recorded Sex Assigned at Female 11/16/2024 3:11 PM EST Legal Sex Female 3:20 PM EST Gender Identity Female 11/16/2024 3:11 PM EST Sexual Orientation Choose not to disclose 2024 3:11 PM EST documented as of this encounter Plan of Treatment Upcoming Encounters Date Type Department Care Team (Late st Contact Info) Description 12/20/2025 8:40 AM EST Office Visit [facility] [address] [facility] [address] [place] [address] Maria Isabel Navarro MD [address] [facility] Jose Miguel. [address] [place] [address] [email or web address] documented as of this encounter Procedures Procedure Name Priority Date/Time Associated Diagnosis Comments MRI ABDOMEN OUTSIDE (NO INTERPRETATION) Routine 07/17/2016 12:00 AM EDT documented in this encounter Results * MRI Abdomen Outside (No Interpretation) (07/17/2016 12:00 AM EDT) Narrative [facility] IMG INTERFACES - 10/23/2016 1:20 PM EST This study is for PACS storage only and not for interpretation. us Roger Shelton MD IMG OUT SIDE IMAGING W/OUT INTERPRETATION Final Result Performing Organization Address City/State/[facility] Co de Phone Number [facility] IMG INTERFACES documented in this encounter Visit Diagnoses Not on filedocumented in this encounter Care Teams Pallet Rectifier Relationship Specialty Start Date End Date Ruddy Gray MD [address] [place] [address] [email or web address] PCP - General Internal Medicine 01/23/16 08/25/18 DesiletsJosh MD [address] [facility] [place] [address] Gastroenterology 02/07/16 Carolina Godinez MD [address] [place] [address] Surgical Oncology 02/07/16 documented as of this encounter Additional Source Comments The information contained in this document represents components of the legal health record. It is not the complete legal health record.[facility]
--- NOTE | ~2025-10-10 | NM_ITS ---
Lexiscan Myocardial perfusion study Indication: Coronary artery disease; history of RCA/LAD stent; STITCHDOWN THREAD LASTER circumflex Technique: The patient was brought in for a Lexiscan perfusion study on 10/10/2025 and was injected 0.4 mg of Lexiscan intravenously. Within a minute of this injection 25 mCi of sestamibi was given intravenously. Images were obtained using the SPECT gamma camera interlaced with the gating device. Images were obtained in supine position. Resting perfusion study was performed on 10/15/2025. Patient was administered 25 mCi of sestamibi intravenously at rest. Images were then obtained in supine position. Total DLP 69 mGy-cm. Images were processed with the software and compared side to side in short axis, horizontal long axis and vertical long axis views. Findings: Raw aquisition reviewed. The stress perfusion study showed markedly decreased tracer uptake along the inferior/inferolateral wall, most prominent towards the apex. Mildly diminished tracer uptake in the mid anterior wall. Inferior wall uptake seems to improve with CT attenuation correction and hence there could be components of diaphragmatic attenuation artifact. The gated study shows normal LV systolic function with calculated LVEF of 73%. LV cavity is normal in size. The gated study shows reduced thickening on contractility in the inferior/inferolateral wall. Resting study shows markedly reduced tracer uptake along the inferior wall. Mildly reduced tracer uptake in the mid anterior wall. Inferior wall uptake seems to improve with CT attenuation correction and hence that could be components of diaphragmatic attenuation artifact. Gating at rest reveals reduced inferior wall thickening and ejection fraction at 68%. The findings are consistent with fixed inferior/inferolateral perfusion defect. Fixed mid anterior defect. [place] cardiolite stress test Impression: 1. Myocardial perfusion imaging study shows severe fixed perfusion defect in the inferior/inferolateral wall suggestive of infarct. Possible small mid anterior nontransmural infarct. 2. Gated LVEF is >70% during stress and 68% during rest. Correlate with echocardiogram. 3. Transient ischemic dilatation not present. EKG component of the test reported separately. Electronically signed by: Rashel Velez MD 10/16/2025 03:46 PM [facility]
--- NOTE | 2025-10-10 07:49 | CA_ITS ---
Acquisition Time: 2025-10-10 08:24:33 Total Exercise Time: 00:02:00 Test Indications: SOB Medications: SEE H&P Protocol: LEXISCAN Max HR: 100 BPM 70% of Pred: 141 BPM Max BP: 164/70 mmHG Max Work Load: 1.0 METS Pharmacological stress test with Lexiscan while pt marches in chair, with reports of 2/10 mid chest pressure and SOB, with isolated PACs and PVCs, with normotensive response to injection. Nondiagnostic EKG for ischemia. In recovery, pt treated with IVP Aminophylline 75 mg to reverse Lexiscan after which pt slowly feeling back to baseline. Nuclear images pending. Test reviewed with Dr. Greer. Referred By: Colin Vo Electronically Signed By: Brandon Baptiste
--- OUTSIDE RECORDS SUMMARY | 2025-10-10 07:49 | XMS_ITS | Clinical Summary ---
Author Organization [facility] Address [address] [place] [address] Phone Care Team Providers Care Cardiopulmonary Technologist Name Role Phone PaulileJosh felipe MD Unavailable [phone] Carolina Godinez MD Unavailable [phone] Cedrick Cervantes MD Unavailable Maria Isabel Navarro [...] to discount today's elevated value. Goal per homeopathic doctor is <130/84. Will check labs today to [...] Description 12/20/2025 8:40 AM EST Office Visit [facility] [place] [facility] [address] [facility] [address] [place] [address] Maria Isabel Navarro MD 15 [facility] Jose Miguel. 201 [place] [address] [email or web address] Due Date Last Done Comments [...] Most Recently Relevant to Health Maintenance Insurance [facility] MEDICARE REPLACEMENT [facility] MEDICARE REPLACEMENT [facility] MEDICARE [facility]PLACEMENT [facility] MEDICARE REPLACEMENT [facility] MEDICARE REPLACEMENT [facility] MEDICARE REPLACEMENT [facility] MEDICARE REPLACEMENT [facility] MEDICARE REPLACEMENT [facility] MEDICARE REPLACEMENT Care Teams Cardiopulmonary Technologist Relationship Specialty Start Date End Date Maria Isabel Navarro MD [address] [address] PCP - General Family Medicine 12/13/23 DesiletsJosh MD [address] [place] [address] [place] [address] Gastroenterology 02/07/16 Carolina Godinez MD [facility]0 [place] [address] Surgical Oncology 02/07/16 Cedrick Cervantes MD [address] [place] [address] Ophthalmology 04/14/23 Additional Source Comments The information contained in this document represents components of the legal health record. It is not the complete legal health record.[facility]
--- OUTSIDE RECORDS SUMMARY | 2025-10-10 07:49 | XMS_ITS | Encounter Summary ---
Author Organization [facility] Address [address] [place] [address] Phone Care Team Providers Care Pugger Helper Name Role Phone Ruddy Gray MD Primary Care Provider [phone] DesiletsJosh MD Unavailable Carolina Godinez MD Unavailable [phone] Carrie Desouza DO Unavailable Brooke Antunez MD Unavailable Ruddy Gray MD Unavailable Camila Parmar ELECTRIC MOTORMAN Unavailable [phone] Camila Parmar ELECTRIC MOTORMAN Primary Care Provider Cedrick Cervantes MD Unavailable Maria Isabel Navarro MD Primary Care Provider Encounter Details Date Type Department Care Team (Late st Contact Info) Description 03/16/2017 Procedure Pass [facility] General Imaging [address] [place] [address] Social History Tobacco Use Types Packs/Day Years [...] Description 12/20/2025 8:40 AM EST Office Visit [facility] [place] [facility] [address] [facility] [address] [place] [address] Maria Isabel Navarro MD 15 [facility]. 201 [place] [address] documented as of this encounter Visit Diagnoses Not on filedocumented in this encounter Care Teams Pugger Helper Relationship Specialty Start Date End Date Ruddy Gray MD 40 [place] [address] PCP - General Internal Medicine 01/23/16 08/25/18 Camila Parmar NP [address] [place] [address] 6 [place] [address] PCP - General Family Medicine 08/26/18 12/12/23 Maria Isabel Navarro MD 15 [facility] 201 [place] [address] PCP - General Family Medicine 12/13/23 Josh Peralta MD 3300 [facility] [place] [address] Gastroenterology 02/07/16 Carolina Godinez MD 3350 [place] [address] Surgical Oncology 02/07/16 Carrie Desouza DO 30 [place] [address] [email or web address] Historical LMR Provider 09/04/17 02/12/21 Brooke Antunez MD 84 [place] [address] Historical LMR Provider 09/04/17 Ruddy Gray MD 40 [place] [address] Historical LMR Provider 09/04/17 02/12/21 Camila Parmar NP [address] [address] Historical LMR Provider 09/04/17 02/12/21 Cedrick Cervantes MD [address] [place] [address] Dr [facility]ILLA [facility] [place] [place] [address] Ophthalmology 04/14/23 documented as of this encounter Additional Source Comments The information contained in this document represents components of the legal health record. It is not the complete legal health record.[facility]
--- OUTSIDE RECORDS SUMMARY | 2025-10-10 07:49 | XMS_ITS | Encounter Summary ---
Author Organization [facility] Address [address] [place] [address] Phone Care Team Providers Care Jewel Hole Rough Opener Name Role Phone Ruddy Gray MD Primary Care Provider DesiletsJosh MD Unavailable Carolina Godinez MD Unavailable Carrie Desouza DO Unavailable Brooke Antunez MD Unavailable Ruddy Gray MD Unavailable Camila Parmar OUTSIDE INSTALLATION MACHINIST Unavailable [phone] Camila Parmar OUTSIDE INSTALLATION MACHINIST Primary Care Provider Cedrick Cervantes MD Unavailable Maria Isabel Navarro MD Primary Care Provider Encounter Details Date Type Department Care Team (Late st Contact Info) Description 10/23/2016 Procedure Pass [facility] General Imaging [address] [place] [address] Social History Tobacco Use Types Packs/Day Years [...] Description 12/20/2025 8:40 AM EST Office Visit [facility] [place] [facility] 15 [facility] [address] [place] [address] Maria Isabel Navarro MD 15 [facility] Jose Miguel. 201 [place] [address] documented as of this encounter Visit Diagnoses Not on filedocumented in this encounter Care Teams Jewel Hole Rough Opener Relationship Specialty Start Date End Date Ruddy Gray MD [address] [place] [address] PCP - General Internal Medicine 01/23/16 08/25/18 Camila Parmar NP [address] [place] [address] PCP - General Family Medicine 08/26/18 12/12/23 Maria Isabel Navarro MD 15 [facility]. 201 [place] [address] PCP - General Family Medicine 12/13/23 Josh Peralta MD [address] [place] [address] [place] [address] Gastroenterology 02/07/16 Carolina Godinez MD [address] [place] [address], [place] [address] Surgical Oncology 02/07/16 Carrie Desouza DO 30 [place] [address] [email or web address] Historical LMR Provider 09/04/17 02/12/21 Brooke Antunez MD 84 [place] [address] Historical LMR Provider 09/04/17 Ruddy Gray MD [address] [place] [address] [email or web address] Historical LMR Provider 09/04/17 02/12/21 Camila Parmar NP 26 [facility] 6 [place] [address] Historical LMR Provider 09/04/17 02/12/21 Cedrick Cervantes MD [address] [place] [address] [place] [address] Ophthalmology 04/14/23 documented as of this encounter Additional Source Comments The information contained in this document represents components of the legal health record. It is not the complete legal health record.[facility]
--- OUTSIDE RECORDS SUMMARY | 2025-10-10 07:49 | XMS_ITS | Encounter Summary ---
Author Organization [facility] Address [address] [place] [address] Phone Care Team Providers Care Newspaper Library Manager Name Role Phone Ruddy Gray MD Primary Care Provider DesiletsJosh MD Unavailable Carolina Godinez MD Unavailable Carrie Desouza DO Unavailable Brooke Antunez MD Unavailable Ruddy Gray MD Unavailable Camila Parmar WATER TREATMENT PLANT SUPERVISOR Unavailable [phone] Camila Parmar WATER TREATMENT PLANT SUPERVISOR Primary Care Provider Cedrick Cervantes MD Unavailable Maria Isabel Navarro MD Primary Care Provider Encounter Details Date Type Department Care Team (Late st Contact Info) Description 03/16/2017 Procedure Pass [facility] General Imaging [address] [place] [address] Social History Tobacco Use Types Packs/Day Years [...] Description 12/20/2025 8:40 AM EST Office Visit [facility] [place] [facility] 15 [facility] [address] [place] [address] Maria Isabel Navarro MD 15 [facility]. 201 [place] [address] documented as of this encounter Visit Diagnoses Not on filedocumented in this encounter Care Teams Newspaper Library Manager Relationship Specialty Start Date End Date Ruddy Gray MD 40 [place] [address] PCP - General Internal Medicine 01/23/16 08/25/18 Camila Parmar NP [address] [place] [address] 6 [place] [address] PCP - General Family Medicine 08/26/18 12/12/23 Maria Isabel Navarro MD 15 [facility] 201 [place] [address] PCP - General Family Medicine 12/13/23 Josh Peralta MD 3300 [facility] [place] [address] Gastroenterology 02/07/16 Carolina Godinez MD 3350 [place] [address] Surgical Oncology 02/07/16 Carrie Desouza DO 30 [place] [address] [email or web address] Historical LMR Provider 09/04/17 02/12/21 Brooke Antunez MD 84 [place] [address] Historical LMR Provider 09/04/17 Ruddy Gray MD 40 [place] [address] Historical LMR Provider 09/04/17 02/12/21 Camila Parmar NP [address] [address] Historical LMR Provider 09/04/17 02/12/21 Cedrick Cervantes MD [address] [place] [address] Dr [facility] [place] [address] Ophthalmology 04/14/23 documented as of this encounter Additional Source Comments The information contained in this document represents components of the legal health record. It is not the complete legal health record.[facility]
--- OUTSIDE RECORDS SUMMARY | 2025-10-10 07:49 | XMS_ITS | Encounter Summary ---
Author Organization [facility] Address [address] [place] [address] Phone Care Team Providers Care Black Leather Buffer Name Role Phone Ruddy Gray MD Primary Care Provider [phone] DesiletsJosh MD Unavailable Carolina Godinez MD Unavailable Carrie Desouza DO Unavailable Brooke Antunez MD Unavailable Ruddy Gray MD Unavailable Camila Parmar BROADCAST FIELD SUPERVISOR Unavailable [phone] Camila Parmar BROADCAST FIELD SUPERVISOR Primary Care Provider Cedrick Cervantes MD Unavailable Maria Isabel Navarro MD Primary Care Provider Encounter Details Date Type Department Care Team (Late st Contact Info) Description 03/20/2018 Procedure Pass [facility], [address] [address] Social History Tobacco Use Types Packs/Day Years [...] Description 12/20/2025 8:40 AM EST Office Visit [facility] Primary Care 15 [facility] [address] [place] [address] Maria Isabel Navarro MD 15 [facility] Jose Miguel. 201 [place] [address] [email or web address] documented as of this encounter Visit Diagnoses Not on filedocumented in this encounter Additional Health Concerns Assessment Noted Time PHQ-2 Depression Total Score: 0 02/18/20 18 8:19 AM EDT documented as of this encounter Care Teams Black Leather Buffer Relationship Specialty Start Date End Date Ruddy Gray MD 40 [place] [address] PCP - General Internal Medicine 01/23/16 08/25/18 Camila Parmar NP 26 [facility] 6 [place] [address] PCP - General Family Medicine 08/26/18 12/12/23 Maria Isabel Navarro MD 15 [facility] Jose Miguel. [address] [place] [address] [email or web address] PCP - General Family Medicine 12/13/23 [place] [address] [place] [address] [place] [address] Gastroenterology 02/07/16 [place] [address] [place] [address] Surgical Oncology 02/07/16 Carrie Desouza DO 30 [place] [address] [email or web address] Historical LMR Provider 09/04/17 02/12/21 Brooke Antunez MD 84 [place] [address] Historical LMR Provider 09/04/17 Ruddy Gray MD [address] [place] [address] [email or web address] Historical LMR Provider 09/04/17 02/12/21 Camila Parmar NP [address] [place] [address] [email or web address] Historical LMR Provider 09/04/17 02/12/21 Cedrick Cervantes MD [address] [place] [address] [address] [place] [address] Ophthalmology 04/14/23 documented as of this encounter Additional Source Comments The information contained in this document represents components of the legal health record. It is not the complete legal health record.[facility]
== END ==
LOC: HO.CARD 07:46
PROVIDERS: PCP Family Medicine; Visit Provider Internal Medicine Cardiovascular Disease
DX: R06.02 Shortness of breath (principal)
CPT/HCPCS: 78452; 93017; A9500; J0280; J2785

== ENCOUNTER → 2025-10-10 07:49 | Outpatient (BNV) | payer MEDICARE, SELFPAY | PROVIDERS: PCP Family Medicine | DX: I49.1 Atrial premature depolarization (principal); I49.3 Ventricular premature depolarization; R07.89 Other chest pain; R06.02 Shortness of breath | CPT/HCPCS: 78452; 93016; 93018 ==